=== PATIENT | male | born 1945 | race Caucasian/White ===

== ENCOUNTER 2018-01-09 06:54 | Emergency (ER) | payer BC ==
[~2018-01-09] VITALS: Ht 182.9 cm; Wt 82.0 kg
[2018-01-09 07:05] VITALS: BP 114/55; PULSE 120; RESP 16; TEMP 97.4; O2SAT 94
--- NOTE | 2018-01-09 07:19 | PD ---
HPI Chief Complaint: Flank/Kidney Pain Time Seen by Provider: 07:15 Travel History International Travel<30 days: No Contact w/Intl Traveler<30days: No Traveled to known affect area: No History of Present Illness HPI Patient comes in complaining of flank pain he was diagnosed with a kidney stone over the last 3 weeks. He has been showing up to [facility] times was told they cannot help him. Patient follows up with urologist Dr. Ley, who did a cystoscopy and stent placement on the left side this past Wednesday. However the patient continues to have pain and dark-colored urine, left flank pain radiating towards his left groin area, 10 out of 10 pain Develops a rash with penicillin Past medical history significant for MA status post stent in 1993 in 2002, has left bundle branch block, hypercholesterolemia, hernia repair, appendectomy, diabetes, and kidney stones. PFSH Past Medical History Cardiovascular Problems: Yes (MA, STENTS) Social History Tobacco Use: No Allergies-Medications (Allergen,Severity, Reaction): Coded Allergies: Penicillins (Verified Allergy, Mild, Rash, 01/09/18) acetaminophen (Verified Adverse Reaction, Unknown, Confusion, 01/12/18) lorazepam (Verified Adverse Reaction, Unknown, Confusion, 01/12/18) oxycodone (Verified Adverse Reaction, Unknown, Confusion, 01/12/18) Reported Meds & Prescriptions Reported Meds & Active Scripts Active Prednisone 5 Mg Tab 5 Mg PO DAILY Metoprolol Succinate ER 24 HR (Metoprolol Succinate) 25 Mg Tab 50 Mg PO DAILY Percocet (Oxycodone-Acetaminophen) 10-325 mg Tab 1 Tab PO Q6H PRN Reported Ativan (Lorazepam) 1 Mg Tab 1 Mg PO TID PRN Levofloxacin 500 Mg Tablet 500 Mg PO DAILY Omeprazole 40 Mg Cap 40 Mg DAILY Flexeril (Cyclobenzaprine HCl) 10 Mg Tab 10 Mg PO TID PRN Nitrostat SL (Nitroglycerin) 0.4 Mg Subl 0.4 Mg SL DIRECTED PRN 1 tablet under the tongue as needed for chest pain. Repeat every 5 minutes for a total of 3 DOSES or call 911 if NO relief. Meloxicam 15 Mg Tab 15 Mg PO DAILY Fluticasone Nasal [place] 50 Mcg/Act Naspr 50 Mcg EACH NARE BID 50 mcg/spray Aspirin Low Dose (Aspirin) 81 Mg Chew 81 Mg CHEW DAILY Mupirocin Topical (Mupirocin) 2 % Oint 1 Applic TOPICAL TID Tamsulosin (Tamsulosin HCl) 0.4 Mg Cap 0.4 Mg HS Jardiance (Empagliflozin) 10 Mg Tab 10 Mg PO DAILY Benicar (Olmesartan) 20 Mg Tab 20 Mg PO DAILY Welchol (Colesevelam HCl) 625 Mg Tab 1,875 Mg PO BID Metoprolol Succinate ER 24 HR (Metoprolol Succinate) 25 Mg Tab 25 Mg PO DAILY Rosuvastatin (Rosuvastatin Calcium) 20 Mg Tab 20 Mg PO DAILY Review of Systems General / Constitutional: No: Fever Eyes: No: Visual changes HENT: No: Headaches Cardiovascular: No: Chest Pain or Discomfort Respiratory: No: Shortness of Breath Gastrointestinal: No: Abdominal Pain Genitourinary: Positive: Flank Pain Musculoskeletal: No: Pain Skin: No Rash Neurologic: No: Weakness Psychiatric: No: Depression Endocrine: No: Polydipsia Hematologic/Lymphatic: No: Easy Bruising Physical Exam Narrative GENERAL: SKIN: Warm and dry. HEAD: Atraumatic. Normocephalic. EYES: Pupils equal and round. No scleral icterus. No injection or drainage. ENT: No nasal bleeding or discharge. Mucous membranes pink and moist. NECK: Trachea midline. No JVD. CARDIOVASCULAR: Regular rate and rhythm. RESPIRATORY: No accessory muscle use. Clear to auscultation. Breath sounds equal bilaterally. GASTROINTESTINAL: Abdomen soft, non-tender, nondistended. MUSCULOSKELETAL: Extremities without clubbing, cyanosis, or edema. No obvious deformities. NEUROLOGICAL: Awake and alert. No obvious cranial nerve deficits. Motor grossly within normal limits. Five out of 5 muscle strength in the arms and legs. Normal speech. PSYCHIATRIC: Appropriate mood and affect; insight and judgment normal. Data Data Last Documented VS Orders Orders Complete Blood Count With Diff (01/09/18 07:28) Comprehensive Metabolic Panel (01/09/18 07:28) Urinalysis - C+S If Indicated (01/09/18 07:28) Ct Abd/Pel W/O Iv Contrast (01/09/18 07:28) Ecg Monitoring (01/09/18 07:28) Iv Access Insert/Monitor (01/09/18 07:28) Ketorolac Inj (Toradol Inj) (01/09/18 07:30) Morphine Inj (Morphine Inj) (01/09/18 07:30) Ondansetron Inj (Zofran Inj) (01/09/18 07:30) Sodium Chlor 0.9% 1000 Ml Inj (Ns 1000 M (01/09/18 07:28) Ed Discharge Order (01/09/18 09:13) Labs Laboratory Tests Test 01/09/18 07:30 01/09/18 07:34 Urine Color LIGHT-RED Urine Turbidity HAZY Urine pH 5.5 Urine Specific [place] 1.031 Urine Protein 30 mg/dL Urine Glucose (UA) 1000 mg/dL Urine Ketones 10 mg/dL Urine Occult Blood LARGE Urine Nitrite NEG Urine Bilirubin NEG Urine Urobilinogen LESS THAN 2.0 MG/DL Urine Leukocyte Esterase SMALL Urine RBC /hpf Urine WBC 2 /hpf Urine Squamous Epithelial Cells 1 /hpf Urine Bacteria OCC /hpf Microscopic Urinalysis Comment CULT NOT INDICATED White Blood Count 8.7 TH/MM3 Red Blood Count 3.88 MIL/MM3 Hemoglobin 11.1 GM/DL Hematocrit 33.2 % Mean Corpuscular Volume 85.6 FL Mean Corpuscular Hemoglobin 28.5 PG Mean Corpuscular Hemoglobin Concent 33.3 % Red Cell Distribution Width 14.8 % Platelet Count 225 TH/MM3 Mean Platelet Volume 9.0 FL Neutrophils (%) (Auto) 75.4 % Lymphocytes (%) (Auto) 15.1 % Monocytes (%) (Auto) 9.0 % Eosinophils (%) (Auto) 0.3 % Basophils (%) (Auto) 0.2 % Neutrophils # (Auto) 6.6 TH/MM3 Lymphocytes # (Auto) 1.3 TH/MM3 Monocytes # (Auto) 0.8 TH/MM3 Eosinophils # (Auto) 0.0 TH/MM3 Basophils # (Auto) 0.0 TH/MM3 CBC Comment DIFF FINAL Differential Comment Blood Urea Nitrogen 30 MG/DL Creatinine 0.88 MG/DL Random Glucose 200 MG/DL Total Protein 7.1 GM/DL Albumin 2.2 GM/DL Calcium Level 8.6 MG/DL Alkaline Phosphatase 837 U/L Aspartate Amino Transf (AST/SGOT) 88 U/L Alanine Aminotransferase (ALT/SGPT) 19 U/L Total Bilirubin 0.6 MG/DL Sodium Level 137 MEQ/L Potassium Level 4.5 MEQ/L Chloride Level 103 MEQ/L Carbon Dioxide Level 26.8 MEQ/L Anion Gap 7 MEQ/L Estimat Glomerular Filtration Rate 86 ML/MIN [facility] Medical Decision Making Medical Screen Exam Complete: Yes Emergency Medical Condition: Yes Medical Record Reviewed: Yes Differential Diagnosis Rule out pyelonephritis versus infected kidney stone versus perinephric abscess Narrative Course CBC shows no leukocytosis, no anemia, normal platelet count, no left shift. Patient's CT showed a ureteral stent catheter in place with a small 3 mm calculus along the distal stent catheter at the level of the mid pelvis, moderate diverticulosis, small infrarenal AAA measuring 3.5 x 3.4 cm in diameter with a peripheral thrombus, and also some scattered sclerotic areas throughout all the bony structures of concern for possible metastatic disease. All of these findings were discussed at length with the patient and family, he was advised to follow-up & take the report to his primary care Dr. Tan Diagnosis Primary Impression: Ureterolithiasis Patient Instructions: General Instructions, Kidney Stones (ED) Scripts Oxycodone-Acetaminophen (Percocet) 10-325 mg Tab 1 TAB PO Q6H Y for PAIN, #14 TAB 0 Refills Prov: Diogenes Baxter MD 01/09/18 Disposition: 01 DISCHARGE HOME Condition: Stable Diogenes Baxter MD Jan 09, 2018 07:19
[2018-01-09] MEDS ORDERED: SODIUM CHLOR 0.9% 1000 ML INJ 1,000 ML IV ONE (07:28)
[2018-01-09] MEDS ORDERED: KETOROLAC TROMETHAMINE 30 MG/ML (IVP) VIAL IV PUSH ONE (07:30)
[2018-01-09] MEDS ORDERED: MORPHINE SULFATE 4 MG/ML INJ IV PUSH ONE (07:30)
[2018-01-09] MEDS ORDERED: ONDANSETRON HCL 4 MG/2 ML VIAL IV PUSH ONE (07:30)
[2018-01-09 07:55] VITALS: BP 106/58; PULSE 104; RESP 23; O2SAT 92
--- NOTE | 2018-01-09 08:00 | RADRPT ---
EXAM DATE/TIME: 01/09/2018 07:37 This report includes an Addendum and supersedes previous reports for this exam. [facility] COMPARISON: No previous studies available for comparison. INDICATIONS : Left flank pain, history of left renal calculi status post stent placement. ORAL CONTRAST: No oral contrast ingested. RADIATION DOSE: 6.88 CTDIvol (mGy) MEDICAL HISTORY : Cardiovascular disease. Renal calculi. Chronic obstructive pulmonary disease., CAD, Diabetes SURGICAL HISTORY : Hernia, recent bypass/stent to remove stone ENCOUNTER: Initial ACUITY: 3 weeks PAIN SCALE: 5/10 LOCATION: Left flank TECHNIQUE: Volumetric scanning of the abdomen and pelvis was performed. Using automated exposure control and ad justment of the mA and/or kV according to patient size, radiation dose was kept as low as reasonably achievable to obtain optimal diagnostic quality images. DICOM format image data is available electro nically for review and comparison. FINDINGS: LOWER LUNGS: The visualized lower lungs are clear. LIVER: Homogeneous density without lesion. There is no dilation of the biliary tree. No calcified gallston es. SPLEEN: Normal size without lesion. PANCREAS: Within normal limits. KIDNEYS: Normal in size and shape. There is no solid mass or renal calculi. There is a simple cyst extending off the upper pole left kidney. There is a left double pigtail ureteral stent catheter in place with a small 3 mm calculus along the distal stent at the level of the mid pelvis. This is best seen on axi al image #103. ADRENAL GLANDS: Within normal limits. VASCULAR: Diffuse atherosclerotic changes are noted with calcification. There is an infrarenal abdominal aortic aneurysm present measuring up to 3.5 x 3.4 cm in greatest AP and transverse diameter. There is appar ent peripheral thrombus. BOWEL/MESENTERY: The stomach, small bowel, and colon demonstrate no acute abnormality. There are multiple diverticuli greatest in the sigmoid colon. There is no free intraperitoneal air or fluid. ABDOMINAL WALL: Within normal limits. RETROPERITONEUM: There is no lymphadenopathy. BLADDER: No wall thickening or mass. REPRODUCTIVE: Within normal limits. INGUINAL: There is no lymphadenopathy or hernia. MUSCULOSKELETAL: There is diffuse osteopenia. There are multiple ill-defined sclerotic densities throughout the visual ized portion of the vertebral column. End pelvis CONCLUSION: 1. Left double pigtail ureteral stent catheter in place with small 3 mm calculus along the distal graciela nt catheter at the level of the mid pelvis. 2. No renal calculi or obstruction. 3. Small simple cyst extending off the upper pole of the left kidney. 4. Scattered numerous sclerotic areas throughout all the bony structures of concern for possible meta static disease. 5. Moderate diverticulosis. 6. Small infrarenal abdominal aortic aneurysm measuring up to 3.5 x 3.4 cm in diameter with apparent peripheral thrombus. Rogerio Junior MD on January 09, 2018 at 7:47 Board Certified Radiologist. This report was verified electronically. ADDENDUM: The there is a mildly prominent right retroperitoneal lymph node on axial image #38 measuring 1.7 x 1 .4 cm. This is a nonspecific finding. Rogerio Junior MD on January 09, 2018 at 8:06 Board Certified Radiologist. This report was verified electronically.
[2018-01-09 08:09] LABS: AUTOMATED NEUTROPHIL # 6.6 TH/MM3 (1.8-7.7); BASOPHIL % 0.2 % (0.0-2.0); EOSINOPHIL % 0.3 % (0.0-4.0); HEMATOCRIT 33.2 % (39.0-51.0); HEMOGLOBIN 11.1 GM/DL (13.0-17.0); LYMPH % 15.1 % (9.0-44.0); LYMPHOCYTE # 1.3 TH/MM3 (1.0-4.8); MEAN CELL VOLUME 85.6 FL (80.0-100.0); MEAN CORPUSCULAR HEMOGLOBIN 28.5 PG (27.0-34.0); MEAN CORPUSCULAR HGB CONC 33.3 % (32.0-36.0); MONOCYTE # 0.8 TH/MM3 (0-0.9); NEUT % 75.4 % (16.0-70.0); PLATELET COUNT 225 TH/MM3 (150-450); RED BLOOD COUNT 3.88 MIL/MM3 (4.50-5.90); RED CELL DISTRIBUTION WIDTH 14.8 % (11.6-17.2); WHITE BLOOD COUNT 8.7 TH/MM3 (4.0-11.0)
[2018-01-09 08:21] LABS: BACTERIA, URINE OCC /hpf; BILIRUBIN, URINE NEG (NEG); BLOOD, URINE LARGE (NEG); GLUCOSE,URINE 1000 mg/dL (NEG); KETONE, URINE 10 mg/dL (NEG); NITRITE,URINE NEG (NEG); PH, URINE 5.5 (5.0-8.5); SQUAMOUS EPITHELIAL CELL URINE 1 /hpf (0-5); URINE COLOR LIGHT-RED (YELLW/STRAW); URINE LEUKOCYTE ESTERASE SMALL (NEG)
[2018-01-09 08:34] LABS: ALBUMIN 2.2 GM/DL (3.4-5.0); ALT (GPT) 19 U/L (12-78); AST (GOT) 88 U/L (15-37); BICARBONATE 26.8 MEQ/L (21.0-32.0); BLOOD UREA NITROGEN 30 MG/DL (7-18); CALCIUM 8.6 MG/DL (8.5-10.1); CHLORIDE 103 MEQ/L (98-107); CREATININE 0.88 MG/DL (0.60-1.30); GLOMERULAR FILTRATION RATE 86 ML/MIN (>89); GLUCOSE,RANDOM 200 MG/DL (74-106); SODIUM (NA) 137 MEQ/L (136-145)
[2018-01-09 08:36] LABS: ALKALINE PHOSPHATASE 837 U/L (45-117); TOTAL BILIRUBIN ADULT 0.6 MG/DL (0.2-1.0); TOTAL PROTEIN 7.1 GM/DL (6.4-8.2)
[2018-01-09] MEDS ORDERED: PERC10TA27 PO (09:15)
[2018-01-09] MEDS ORDERED: NITR0.4S SL ×2 (09:31)
[2018-01-09] MEDS ORDERED: MUPI2OIN TOPICAL ×2 (09:31)
[2018-01-09] MEDS ORDERED: OMEP40CA2 ×2 (09:31)
[2018-01-09] MEDS ORDERED: METO1TAB42 PO (09:31)
[2018-01-09] MEDS ORDERED: TAMS0.4C4 ×2 (09:31)
[2018-01-09] MEDS ORDERED: MELO15TA20 PO ×2 (09:31)
[2018-01-09] MEDS ORDERED: COLE625 PO ×2 (09:31)
[2018-01-09] MEDS ORDERED: CYCL10TA PO (09:31)
[2018-01-09] MEDS ORDERED: OLME1TAB PO ×2 (09:31)
[2018-01-09] MEDS ORDERED: EMPA1TAB PO ×2 (09:31)
[2018-01-09] MEDS ORDERED: FLUT50SP EACH NARE ×2 (09:31)
[2018-01-09] MEDS ORDERED: ASPI81CH6 CHEW ×2 (09:31)
[2018-01-09] MEDS ORDERED: ROSU1TAB8 PO ×2 (09:31)
[2018-01-09] MEDS ORDERED: LEVO500T8 PO (09:31)
[2018-01-09] MEDS ORDERED: PRED10 PO ×2 (09:31)
== END 2018-01-09 09:38 | disposition home or self-care (01) ==
LOC: NEPC 06:54
DX: N20.1 Calculus of ureter (principal); I71.4 Abdominal aortic aneurysm, without rupture; I25.10 Atherosclerotic heart disease of native coronary artery without angina pectoris; I25.2 Old myocardial infarction; J44.9 Chronic obstructive pulmonary disease, unspecified; E78.00 Pure hypercholesterolemia, unspecified; E11.9 Type 2 diabetes mellitus without complications; Z87.442 Personal history of urinary calculi; Z88.0 Allergy status to penicillin; Z88.5 Allergy status to narcotic agent; Z79.899 Other long term (current) drug therapy
CPT/HCPCS: 74176; 80053; 81001; 85025; 96361; 96374; 96375; 99284; J1885; J2270; J2405; J7030

== ENCOUNTER 2018-01-11 16:12 | Inpatient (IN) | payer BC, MEDICARE ==
[~2018-01-11] VITALS: Ht 182.9 cm; Wt 85.2 kg
[~2018-01-11 16:12] MED LIST: ASPI81CH6 CHEW; COLE625 PO; CYCL10TA PO; EMPA1TAB PO; FLUT50SP EACH NARE; LEVO500T8 PO; MELO15TA20 PO; METO1TAB42 PO; MUPI2OIN TOPICAL; NITR0.4S SL; OLME1TAB PO; OMEP40CA2; PERC10TA27 PO; PRED10 PO; ROSU1TAB8 PO; TAMS0.4C4
[2018-01-11 16:43] VITALS: BP 120/61; PULSE 126; RESP 20; TEMP 97.9; O2SAT 95
[2018-01-11 18:10] LABS: AUTOMATED NEUTROPHIL # 6.1 TH/MM3 (1.8-7.7); BASOPHIL % 0.2 % (0.0-2.0); EOSINOPHIL % 0.2 % (0.0-4.0); HEMATOCRIT 33.6 % (39.0-51.0); HEMOGLOBIN 10.9 GM/DL (13.0-17.0); LYMPH % 14.5 % (9.0-44.0); LYMPHOCYTE # 1.2 TH/MM3 (1.0-4.8); MEAN CELL VOLUME 87.1 FL (80.0-100.0); MEAN CORPUSCULAR HEMOGLOBIN 28.4 PG (27.0-34.0); MEAN CORPUSCULAR HGB CONC 32.6 % (32.0-36.0); MONO % 9.8 % (0.0-8.0); MONOCYTE # 0.8 TH/MM3 (0-0.9); NEUT % 75.3 % (16.0-70.0); PLATELET COUNT 269 TH/MM3 (150-450); RED BLOOD COUNT 3.86 MIL/MM3 (4.50-5.90); RED CELL DISTRIBUTION WIDTH 15.2 % (11.6-17.2); WHITE BLOOD COUNT 8.1 TH/MM3 (4.0-11.0)
[2018-01-11 18:23] LABS: BACTERIA, URINE FEW /hpf; BILIRUBIN, URINE NEG (NEG); BLOOD, URINE MOD (NEG); GLUCOSE,URINE 1000 mg/dL (NEG); KETONE, URINE 10 mg/dL (NEG); NITRITE,URINE NEG (NEG); PH, URINE 5.5 (5.0-8.5); URINE COLOR YELLOW (YELLW/STRAW); URINE LEUKOCYTE ESTERASE MOD (NEG)
[2018-01-11 18:25] LABS: ALBUMIN 2.1 GM/DL (3.4-5.0); ALT (GPT) 25 U/L (12-78); AST (GOT) 108 U/L (15-37); BICARBONATE 28.1 MEQ/L (21.0-32.0); BLOOD UREA NITROGEN 31 MG/DL (7-18); CALCIUM 8.3 MG/DL (8.5-10.1); CHLORIDE 99 MEQ/L (98-107); CREATININE 1.12 MG/DL (0.60-1.30); GLOMERULAR FILTRATION RATE 65 ML/MIN (>89); GLUCOSE,RANDOM 353 MG/DL (74-106); SODIUM (NA) 136 MEQ/L (136-145)
[2018-01-11 18:35] LABS: ALKALINE PHOSPHATASE 914 U/L (45-117); TOTAL BILIRUBIN ADULT 0.6 MG/DL (0.2-1.0); TOTAL PROTEIN 7.5 GM/DL (6.4-8.2)
[2018-01-11] MEDS ORDERED: SODIUM CHLOR 0.9% 1000 ML INJ 1,000 ML IV ONE (19:45)
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
[2018-01-11] MEDS ORDERED: cefTRIAXone INJ 2,000 MG in SODIUM CHLORIDE 0.9% INJ 100 ML IV ONE (20:00)
[2018-01-11 20:02] VITALS: BP 100/60; PULSE 112; RESP 20; O2SAT 96
[2018-01-11 20:16] LABS: INTERNATIONAL NORMALIZED RATIO 1.2 RATIO; MAGNESIUM 3.1 MG/DL (1.5-2.5); PROTHROMBIN TIME - PATIENT 11.7 SEC (9.8-11.6)
[2018-01-11 20:20] LABS: TROPONIN I 0.26 NG/ML (0.02-0.05)
[2018-01-11] MEDS ORDERED: ASPIRIN 81 MG CHEW TAB CHEW ONE (20:30)
--- NOTE | 2018-01-11 20:30 | RADRPT ---
EXAM DATE/TIME: 01/11/2018 19:41 [facility] COMPARISON: No previous studies available for comparison. INDICATIONS : Chest pain. MEDICAL HISTORY : Cardiovascular disease. Renal calculi. Chronic obstructive pulmonary disease., CAD, Diabetes SURGICAL HISTORY : Hernia, recent bypass/stent to remove stone ENCOUNTER: Initial ACUITY: 1 day PAIN SCORE: 6/10 LOCATION: Bilateral chest FINDINGS: A single view of the chest demonstrates the lungs to be symmetrically aerated without evidence of mas s, infiltrate or effusion. The cardiomediastinal contours are unremarkable. Osseous structures are intact. CONCLUSION: No acute disease. Kvng Ortiz MD on January 11, 2018 at 20:27 Board Certified Radiologist. This report was verified electronically.
--- NOTE | 2018-01-11 20:59 | RADRPT ---
EXAM DATE/TIME: 01/11/2018 20:32 [facility] COMPARISON: No previous studies available for comparison. INDICATIONS : Hallucinations, altered mental status RADIATION DOSE: 38.53 CTDIvol (mGy) MEDICAL HISTORY : Cardiovascular disease. Chronic obstructive pulmonary disease. SURGICAL HISTORY : None. ENCOUNTER: Initial ACUITY: 1 day PAIN SCALE: 0/10 LOCATION: cranial TECHNIQUE: Multiple contiguous axial images were obtained of the head. Using automated exposure control and adj ustment of the mA and/or kV according to patient size, radiation dose was kept as low as reasonably a chievable to obtain optimal diagnostic quality images. DICOM format image data is available electro nically for review and comparison. FINDINGS: CEREBRUM: The ventricles are normal for age. No evidence of midline shift, mass lesion, hemorrhage or acute in farction. No extra-axial fluid collections are seen. POSTERIOR FOSSA: The cerebellum and brainstem are intact. The 4th ventricle is midline. The cerebellopontine angle i s unremarkable. EXTRACRANIAL: The visualized portion of the orbits is intact. SKULL: The calvaria is intact. No evidence of skull fracture. CONCLUSION: Normal examination. Kvng Ortiz MD on January 11, 2018 at 20:55 Board Certified Radiologist. This report was verified electronically.
[2018-01-11 21:01] VITALS: BP 132/61; PULSE 108; RESP 18; O2SAT 96
[2018-01-11] MEDS ORDERED: HEPARIN-D5W 25,000 U/250 ML 250 ML IV PRN (21:15)
[2018-01-11] MEDS ORDERED: HEPARIN SODIUM - IV 10,000 UNITS/10 ML VIAL IV ONE (21:15)
[2018-01-11 22:24] VITALS: BP 110/60; PULSE 98; RESP 18; O2SAT 99
[2018-01-11 23:19] VITALS: BP 107/65; PULSE 102; RESP 18; O2SAT 97
[2018-01-11] MEDS ORDERED: MORPHINE SULFATE 4 MG/ML INJ IV PUSH PRN (23:30)
[2018-01-11] MEDS ORDERED: SODIUM CHLORIDE 0.9% FLUSH 10 ML FLUSH IV FLUSH PRN (23:30)
[2018-01-11] MEDS: SODIUM CHLOR 0.9% 1000 ML INJ 1,000 ML IV SCH (23:33)
[2018-01-11] MEDS ORDERED: LORA-474 PO (23:42)
[2018-01-12] VITALS (9 sets, daily range): BP systolic 102–142; BP diastolic 55–83; PULSE 99–120; RESP 16–20; TEMP 97.6–97.7; O2SAT 93–98
[2018-01-12] MEDS ORDERED: HEPARIN SODIUM - IV 10,000 UNITS/10 ML VIAL IV PRN ×2 (03:15)
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
[2018-01-12] MEDS ORDERED: GLUCAGON 1 MG/ML VIAL OTHER PRN (03:30)
[2018-01-12] MEDS ORDERED: DEXTROSE 50% IN WATER 50 ML VIAL(D50) IV PUSH PRN (03:30)
[2018-01-12 03:53] LABS: AUTOMATED NEUTROPHIL # 4.8 TH/MM3 (1.8-7.7); BASOPHIL % 0.2 % (0.0-2.0); EOSINOPHIL % 0.3 % (0.0-4.0); HEMATOCRIT 30.2 % (39.0-51.0); LYMPH % 18.4 % (9.0-44.0); LYMPHOCYTE # 1.2 TH/MM3 (1.0-4.8); MEAN CELL VOLUME 85.7 FL (80.0-100.0); MEAN CORPUSCULAR HEMOGLOBIN 28.3 PG (27.0-34.0); MEAN PLATELET VOLUME 8.6 FL (7.0-11.0); MONOCYTE # 0.7 TH/MM3 (0-0.9); NEUT % 71.1 % (16.0-70.0); PLATELET COUNT 227 TH/MM3 (150-450); RED BLOOD COUNT 3.53 MIL/MM3 (4.50-5.90); RED CELL DISTRIBUTION WIDTH 14.9 % (11.6-17.2); WHITE BLOOD COUNT 6.8 TH/MM3 (4.0-11.0)
[2018-01-12 04:20] LABS: ALBUMIN 1.8 GM/DL (3.4-5.0); ALT (GPT) 22 U/L (12-78); AST (GOT) 84 U/L (15-37); BLOOD UREA NITROGEN 29 MG/DL (7-18); CALCIUM 8.2 MG/DL (8.5-10.1); CHLORIDE 104 MEQ/L (98-107); CREATININE 0.75 MG/DL (0.60-1.30); GLOMERULAR FILTRATION RATE 103 ML/MIN (>89); GLUCOSE,RANDOM 263 MG/DL (74-106); SODIUM (NA) 141 MEQ/L (136-145)
[2018-01-12 04:22] LABS: ALKALINE PHOSPHATASE 773 U/L (45-117); TOTAL BILIRUBIN ADULT 0.5 MG/DL (0.2-1.0); TOTAL PROTEIN 6.6 GM/DL (6.4-8.2)
[2018-01-12 07:02] LABS: BANDS 2 % (0-6); BASOPHILS 1 % (0-2); LYMPHOCYTES 22 % (9-44); METAMYELOCYTES 2 % (0-1); MONOCYTES 6 % (0-8); NEUTROPHIL # MANUAL DIFF 4.8 TH/MM3 (1.8-7.7); POLYS (SEG NEUTROPHILS) 67 % (16-70)
--- NOTE | 2018-01-12 07:34 | EKG ---
Date Performed: 01/12/2018 Time Performed: 06:00:04 PTAGE: 72 years EKG: SINUS TACHYCARDIA LEFT BUNDLE BRANCH BLOCK ABNORMAL ECG PREVIOUS TRACING : 01/11/2018 19.37 DOCTOR: William Pulido Interpretating Date/Time 01/12/2018 07:32:35
[2018-01-12] MEDS: INSULIN ASPART SUPPLEMENTAL SCALE SQ SCH ×4 (08:00→20:27)
--- NOTE | 2018-01-12 08:02 | EKG ---
Date Performed: 01/11/2018 Time Performed: 19:37:14 PTAGE: 72 years EKG: SINUS TACHYCARDIA LEFT BUNDLE BRANCH BLOCK ABNORMAL ECG NO PREVIOUS TRACING DOCTOR: William Pulido Interpretating Date/Time 01/12/2018 08:01:35
[2018-01-12 09:18] LABS: TROPONIN I 0.15 NG/ML (0.02-0.05)
[2018-01-12] MEDS ORDERED: NITROGLYCERIN 0.4 MG SL 25 TABS/BTL SL PRN (09:45)
[2018-01-12] MEDS: ATORVASTATIN 40 MG TAB PO SCH (10:35)
[2018-01-12] MEDS: PANTOPRAZOLE SOD 40 MG DELAYED RELEASE TAB PO SCH (10:35)
[2018-01-12] MEDS: METOPROLOL SUCCINATE 25 MG EXTENDED RELEASE TAB PO SCH (10:35)
[2018-01-12] MEDS: SODIUM CHLORIDE 0.9% FLUSH 10 ML FLUSH IV FLUSH SCH ×2 (10:36→20:11)
[2018-01-12] MEDS: LOSARTAN 50 MG TAB PO SCH (10:36)
[2018-01-12] MEDS: ASPIRIN EC 325 MG TABEC PO SCH (10:37)
[2018-01-12] MEDS: SODIUM CHLOR 0.9% 1000 ML INJ 1,000 ML IV SCH ×2 (10:37→19:30)
[2018-01-12 11:27] LABS: BICARBONATE 26.7 MEQ/L (21.0-32.0); CALCIUM 8.5 MG/DL (8.5-10.1); CREATININE 0.7 MG/DL (0.60-1.30)
[2018-01-12] MEDS ORDERED: SODIUM POLYSTYRENE SULFONATE SUSP 15 GM/60 ML CUP PO ONE (13:00)
[2018-01-12] MEDS: MUPIROCIN 2% OINT 22 GM TUBE TOPICAL SCH ×2 (13:59→17:57)
[2018-01-12] MEDS: COLESEVELAM HCL 625 MG TAB PO SCH (14:02)
--- NOTE | 2018-01-12 15:11 | MB ---
cc: Eric Bundy MD DATE: 01/12/2018 REASON FOR CONSULTATION: Evaluation of elevated troponin. HISTORY OF PRESENT ILLNESS: Bharat Cason is a 72-year-old man well known to me. He has known coronary artery disease. Recently was admitted with altered mental status. Yesterday, he was psychotic, he is better today. He has had a lot of weight loss and getting a malignancy workup. Specifically though related to his heart, he has not had any chest pain, chest tightness, chest squeezing or anything that could construe his angina. He has had significant weight loss. He has had no other cardiovascular symptoms. He has known coronary artery disease. He had a previous myocardial infarction in 2002 with stenting of the right coronary artery with a 4.0 x 33 mm long Cypher stent. At that time, he had a bifurcated mid LAD lesion that was not critical. It was treated medically. He has not had any problems with ischemia since that procedure. He has a chronic left bundle branch block. PAST MEDICAL HISTORY: Includes coronary disease, kidney stones, mild carotid plaquing, type 2 diabetes, hypertension, hyperlipidemia, left bundle branch block, obesity, previous polymyalgia rheumatica. PAST SURGICAL HISTORY: Appendectomy, back surgery, catheterization procedure, hernia repair, and right coronary artery stent. MEDICATIONS: As charted. He is on a low-dose beta elida as well as angiotensin receptor elida and a statin. ALLERGIES: ALVIN INHIBITORS, PENICILLIN AND ZETIA. FAMILY HISTORY: Positive for colon cancer in the mother and coronary artery disease in the father, stroke in the father. SOCIAL HISTORY: He used to smoke, but quit, smoked from age 13 to age 64, however. REVIEW OF SYSTEMS: Notable for weight loss. PHYSICAL EXAMINATION: GENERAL: Shows an alert, well-developed, well-nourished white male. At the present time, he is not hallucinating. VITAL SIGNS: Charted. HEENT: Unremarkable. NECK: Shows no JVD, no bruits. CHEST: Clear to auscultation. CARDIOVASCULAR: Shows normal first and second heart sounds, regular rate and rhythm. No murmurs or gallops. ABDOMEN: Soft, nontender. EXTREMITIES: No clubbing, cyanosis. Pulses are intact. EKG: Shows regular rhythm with left bundle branch block. We did carotid massage at the bedside. It is clearly sinus rhythm, not any type of SVT that I can see. IMAGING STUDIES: His chest x-ray showing no acute disease. LABORATORY DATA: Showing a troponin of 0.20, 0.15 on recheck. Albumin is only 1.8. Creatinine is 0.7. IMPRESSION: Mildly elevated troponin in this patient with known coronary artery disease. I cannot elicit any history though that sounds like angina. I think the troponin elevation is minimal and probably spurious. I am going to order a Lexiscan nuclear stress test just to assess him further. Heparin has been turned off. Eric Bundy MD VEW/TL , 02:48 PM , 03:11 PM
--- NOTE | 2018-01-12 17:12 | HHI.PR ---
Addendum To [facility] Progress Not Reason for addendum: Additonal documentation (Please refer to H&P today. States he developed confusion after receiving medications during PETSCAN. Thinks he was given lorazepam and Percocet but wants his to confirm. He is currently oriented 4. Patient's encephalopathy could also be related to infection, UTI. He also has elevated troponin but denies chest pain with history of coronary artery disease pending cardiology evaluation. Continue heparin for now. Patient is on chronic prednisone for back pain which is being tapered by his PCP Dr. Tan) Gustavo Betancourt MD Jan 12, 2018 17:12
[2018-01-12] MEDS: cefTRIAXone INJ 1,000 MG in SODIUM CHLORIDE 0.9% INJ 100 ML IV SCH (20:11)
[2018-01-12] MEDS: TAMSULOSIN HCL 0.4 MG CAP PO SCH (20:12)
[2018-01-12] MEDS: FLUTICASONE PROPIONATE 50 MCG/ACT 16 GM NASAL SPRAY EACH NARE SCH (20:12)
[2018-01-13] VITALS (8 sets, daily range): BP systolic 92–146; BP diastolic 55–72; PULSE 88–103; RESP 16–21; TEMP 97.2–99; O2SAT 93–100
[2018-01-13] MEDS: COLESEVELAM HCL 625 MG TAB PO SCH ×3 (00:45→23:29)
[2018-01-13] MEDS: SODIUM CHLOR 0.9% 1000 ML INJ 1,000 ML IV SCH ×2 (03:48→16:00)
[2018-01-13 08:18] LABS: AUTOMATED NEUTROPHIL # 4.5 TH/MM3 (1.8-7.7); BASOPHIL % 0.4 % (0.0-2.0); EOSINOPHIL % 0.4 % (0.0-4.0); HEMATOCRIT 28.9 % (39.0-51.0); HEMOGLOBIN 9.8 GM/DL (13.0-17.0); LYMPH % 20.5 % (9.0-44.0); LYMPHOCYTE # 1.3 TH/MM3 (1.0-4.8); MEAN CELL VOLUME 85.4 FL (80.0-100.0); MEAN PLATELET VOLUME 8.6 FL (7.0-11.0); MONO % 9.5 % (0.0-8.0); MONOCYTE # 0.6 TH/MM3 (0-0.9); NEUT % 69.2 % (16.0-70.0); PLATELET COUNT 234 TH/MM3 (150-450); RED BLOOD COUNT 3.38 MIL/MM3 (4.50-5.90); RED CELL DISTRIBUTION WIDTH 14.7 % (11.6-17.2); WHITE BLOOD COUNT 6.6 TH/MM3 (4.0-11.0)
[2018-01-13 08:44] LABS: BICARBONATE 27.9 MEQ/L (21.0-32.0); CALCIUM 8.4 MG/DL (8.5-10.1); CREATININE 0.61 MG/DL (0.60-1.30); MAGNESIUM 2.3 MG/DL (1.5-2.5)
[2018-01-13] MEDS: ASPIRIN EC 325 MG TABEC PO SCH (08:59)
[2018-01-13] MEDS: predniSONE 5 MG TAB PO SCH (08:59)
[2018-01-13] MEDS: PANTOPRAZOLE SOD 40 MG DELAYED RELEASE TAB PO SCH (08:59)
[2018-01-13] MEDS: LOSARTAN 50 MG TAB PO SCH (08:59)
[2018-01-13] MEDS: ATORVASTATIN 40 MG TAB PO SCH (09:00)
[2018-01-13] MEDS: MUPIROCIN 2% OINT 22 GM TUBE TOPICAL SCH ×3 (09:00→17:52)
[2018-01-13] MEDS: METOPROLOL SUCCINATE 25 MG EXTENDED RELEASE TAB PO SCH (09:00)
[2018-01-13] MEDS: SODIUM CHLORIDE 0.9% FLUSH 10 ML FLUSH IV FLUSH SCH ×2 (09:00→20:45)
[2018-01-13] MEDS: FLUTICASONE PROPIONATE 50 MCG/ACT 16 GM NASAL SPRAY EACH NARE SCH ×2 (09:00→20:45)
[2018-01-13] MEDS: INSULIN ASPART SUPPLEMENTAL SCALE SQ SCH ×4 (09:02→20:44)
[2018-01-13 09:31] LABS: BANDS 9 % (0-6); LYMPHOCYTES 14 % (9-44); METAMYELOCYTES 1 % (0-1); MONOCYTES 12 % (0-8); NEUTROPHIL # MANUAL DIFF 4.8 TH/MM3 (1.8-7.7); POLYS (SEG NEUTROPHILS) 63 % (16-70)
--- NOTE | 2018-01-13 09:33 | PD.CARD.PN ---
Subjective Subjective Remarks no angina. no complaints Objective Medications Current Medications Medications (Trade) Dose Ordered Sig/Stacey Route Start Time Stop Time Status Last Admin (NS Flush) 2 ml BID IV FLUSH 01/12/18 09:00 01/12/18 20:11 (NS Flush) 2 ml UNSCH PRN IV FLUSH 01/11/18 23:30 (Ecotrin Ec) 325 mg DAILY PO 01/12/18 09:00 01/13/18 08:59 Ceftriaxone Sodium 1000 mg/ Sodium Chloride 100 ml @ 200 mls/hr Q24H IV 01/12/18 20:00 01/12/18 20:11 Sodium Chloride 1,000 ml @ 100 mls/hr Q10H IV 01/11/18 23:30 01/13/18 03:48 (Morphine Inj) 4 mg Q3H PRN IV PUSH 01/11/18 23:30 (Welchol) 1,875 mg Q12H PO 01/12/18 11:00 01/13/18 00:45 (Toprol Xl) 25 mg DAILY PO 01/12/18 09:00 01/13/18 09:00 (Flomax) 0.4 mg HS PO 01/12/18 21:00 01/12/18 20:12 (Cozaar) 50 mg DAILY PO 01/12/18 09:00 01/13/18 08:59 (Protonix) 40 mg DAILY PO 01/12/18 09:00 01/13/18 08:59 (Lipitor) 40 mg DAILY PO 01/12/18 09:00 01/13/18 09:00 (D50w (Vial) Inj) 50 ml UNSCH PRN IV PUSH 01/12/18 03:30 (Glucagon Inj) 1 mg UNSCH PRN OTHER 01/12/18 03:30 (NovoLOG SUPPLEMENTAL SCALE) 1 ACHS SLIDING SCALE SQ 01/12/18 08:00 01/13/18 09:02 (Flonase Gavino Spr) 1 spray BID EACH NARE 01/12/18 21:00 (Bactroban 2% Oint) 1 applic TID TOPICAL 01/12/18 13:00 01/12/18 17:57 (Nitrostat Sl) 0.4 mg Q5M PRN SL 01/12/18 09:45 (Deltasone) 5 mg DAILY PO 01/13/18 09:00 01/13/18 08:59 Vital Signs / I&O Vital Signs Date Time Temp Pulse Resp B/P (MAP) Pulse Ox O2 Delivery O2 Flow Rate FiO2 01/13/18 04:00 99 01/13/18 04:00 97.5 101 19 146/69 (94) 95 01/13/18 00:17 103 01/13/18 00:00 97.8 102 21 133/70 (91) 93 01/12/18 20:31 97.7 120 20 142/73 (96) 94 01/12/18 19:55 108 01/12/18 16:00 97.6 105 16 102/55 (71) 93 01/12/18 15:00 108 01/12/18 15:00 108 01/12/18 12:46 109 16 96 01/12/18 10:00 110 16 132/64 (86) 96 Room Air I/O 01/12/18 01/12/18 01/12/18 01/13/18 01/13/18 01/13/18 07:00 15:00 23:00 07:00 15:00 23:00 Intake Total 1300 ml 100 ml Output Total 650 ml 100 ml 500 ml Balance 650 ml 0 ml -500 ml Intake Oral 200 ml 100 ml IV Total 1100 ml Output Urine Total 650 ml 100 ml 500 ml # Voids 3 2 # Bowel Movements 3 Physical Exam GENERAL: Well developed, well nourished. No acute distress. HEENT: Jugular venous pressure is normal. CHEST: Lungs clear to auscultation bilaterally. Unlabored respiratory effort. CARDIAC: Regular rate and rhythm ABDOMEN: Soft, nontender, no hepatosplenomegaly. Bowel sounds present. EXTREMITIES: No clubbing, cyanosis, or edema. Laboratory Laboratory Tests Test 01/12/18 10:30 01/13/18 07:06 Blood Urea Nitrogen 22 MG/DL 19 MG/DL Creatinine 0.70 MG/DL 0.61 MG/DL Random Glucose 231 MG/DL 199 MG/DL Calcium Level 8.5 MG/DL 8.4 MG/DL Sodium Level 137 MEQ/L 144 MEQ/L Potassium Level 5.6 MEQ/L 4.3 MEQ/L Chloride Level 104 MEQ/L 108 MEQ/L Carbon Dioxide Level 26.7 MEQ/L 27.9 MEQ/L Anion Gap 6 MEQ/L 8 MEQ/L Estimat Glomerular Filtration Rate 111 ML/MIN 131 ML/MIN Ammonia 23 MCMOL/L White Blood Count 6.6 TH/MM3 Red Blood Count 3.38 MIL/MM3 Hemoglobin 9.8 GM/DL Hematocrit 28.9 % Mean Corpuscular Volume 85.4 FL Mean Corpuscular Hemoglobin 29.0 PG Mean Corpuscular Hemoglobin Concent 34.0 % Red Cell Distribution Width 14.7 % Platelet Count 234 TH/MM3 Mean Platelet Volume 8.6 FL Neutrophils (%) (Auto) 69.2 % Lymphocytes (%) (Auto) 20.5 % Monocytes (%) (Auto) 9.5 % Eosinophils (%) (Auto) 0.4 % Basophils (%) (Auto) 0.4 % Neutrophils # (Auto) 4.5 TH/MM3 Lymphocytes # (Auto) 1.3 TH/MM3 Monocytes # (Auto) 0.6 TH/MM3 Eosinophils # (Auto) 0.0 TH/MM3 Basophils # (Auto) 0.0 TH/MM3 CBC Comment AUTO DIFF Magnesium Level 2.3 MG/DL Assessment and Plan Problem List: (1) Coronary artery disease ICD Codes: I25.10 - Atherosclerotic heart disease of [place] coronary artery without angina pectoris (2) Elevated troponin level ICD Codes: R74.8 - Abnormal levels of other serum enzymes (3) Altered mental status ICD Codes: R41.82 - Altered mental status, unspecified Status: Acute Assessment and Plan await rainer SPECT Problem Qualifiers (1) Altered mental status: Qualified Codes: R41.82 - Altered mental status, unspecified Eric Bundy MD Jan 13, 2018 09:32
[2018-01-13 10:11] LABS: FREE T3 1.83 PG/ML (2.18-3.98); FREE T4 1.26 NG/DL (0.76-1.46)
[2018-01-13] MEDS ORDERED: REGADENOSON INJ 0.4 MG/5 ML SYR ONE (11:27)
--- NOTE | 2018-01-13 13:57 | EKG ---
Date Performed: 01/12/2018 Time Performed: 14:33:22 PTAGE: 72 years EKG: Sinus tachycardia. Left bundle branch block Abnormal ECG Since the PREVIOUS TRACING , no significant change noted PREVIOUS TRACIN01/12/2018 06.00 DOCTOR: Vicki Mahmood Interpretating Date/Time 01/13/2018 13:55:42
--- NOTE | 2018-01-13 14:02 | RADRPT ---
EXAM DATE/TIME: 01/13/2018 11:19 [facility] COMPARISON: No previous studies available for comparison. INDICATIONS : Chest pain. Coronary artery disease. Myocardial infarction. DOSE: 26.2 mCi Tc99m Myoview at stress. 8.1 mCi Tc99m Myoview at rest. 0.4 mg Lexiscan STRESS SYMPTOMS: Shortness of breath and flush. EJECTION FRACTION: 40% MEDICAL HISTORY : Aneurysm, abdominal. Myocardial infarction. Chronic obstructive pulmonary disease. SURGICAL HISTORY : Coronary artery stent. Appendectomy. ENCOUNTER: Initial ACUITY: 1 day PAIN SCALE: 4/10 LOCATION: chest TECHNIQUE: The patient underwent pharmacologic stress with infusion of prescribed dose. Continuous ECG tracing was monitored during stress. Gated SPECT imaging was performed after stress and conventional SPECT i maging was performed at rest. The examination was performed on a SPECT/CT scanner, both attenuation and non-corrected datasets were reviewed. FINDINGS: DISTRIBUTION: The maximum perfused segment at stress is in the basal anterior wall. PERFUSION STUDY: There is moderate size moderate severity decreased perfusion to the apex and the apical segments of t he septum and inferior wall. Decrease in perfusion is approximately 50% less than best perfused wall . There is no evidence of redistribution suggesting that these defects are fixed. No other perfusio n defects seen. The summed stress score is 6. GATED STUDY: Abnormal wall motion in the apex and apical septal region either with akinesia or hypokinesia. No wa ll thickening seen. The calculated ejection fraction is depressed at 40%. CONCLUSION: 1. Fixed perfusion defect involving the apex and apical segments of the septum and inferior wall emilia acteristic of old infarction. Wall motion abnormalities in the same segments as the fixed perfusion defect. The global ejection fr action is also depressed at 40%. RISK CATEGORY: Intermediate (1-3% Annual Mortality Rate) Mynor Langston MD on January 13, 2018 at 13:56 Board Certified Radiologist. This report was verified electronically.
--- NOTE | 2018-01-13 16:56 | HHI.PR ---
Subjective Remarks Patient seen earlier resting in bed no chest pain Going for stress test nuclear Objective Vitals Vital Signs Date Time Temp Pulse Resp B/P (MAP) Pulse Ox O2 Delivery O2 Flow Rate FiO2 01/13/18 08:00 98.0 102 18 132/66 (88) 96 01/13/18 08:00 100 01/13/18 04:00 99 01/13/18 04:00 97.5 101 19 146/69 (94) 95 01/13/18 00:17 103 01/13/18 00:00 97.8 102 21 133/70 (91) 93 01/12/18 20:31 97.7 120 20 142/73 (96) 94 01/12/18 19:55 108 I/O 01/12/18 01/12/18 01/12/18 01/13/18 01/13/18 01/13/18 07:00 15:00 23:00 07:00 15:00 23:00 Intake Total 1300 ml 100 ml Output Total 650 ml 100 ml 500 ml Balance 650 ml 0 ml -500 ml Intake Oral 200 ml 100 ml IV Total 1100 ml Output Urine Total 650 ml 100 ml 500 ml # Voids 3 2 # Bowel Movements 3 Result Diagram: 01/13/18 0706 01/13/18 0706 Imaging Last Impressions Myocardial Perfusion Scan Nuc Med 01/13/18 0000 Signed Impressions: Service Date/Time: January 11:19 - CONCLUSION: 1. 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 Wall motion abnormalities in the same segments as the fixed perfusion defect. The global ejection fraction is also depressed at 40%%. RISK CATEGORY: Intermediate (1-3%% Annual Mortality Rate) Mynor Langston MD Chest X-Ray 01/11/18 193 Signed Impressions: Service Date/Time: Thursday, January 11, 2018 19:41 - CONCLUSION: No acute disease. Kvng Ortiz MD Head CT 01/11/18 0000 Signed Impressions: Service Date/Time: Thursday, January 11, 2018 20:32 - CONCLUSION: Normal examination. Kvng Ortiz MD Objective Remarks GENERAL: This is a well-nourished, well-developed patient, in no apparent distress. SKIN: No rashes, warm and dry HEAD: Atraumatic. Normocephalic. EYES: PERRLA . No scleral icterus. ENT: No bleeding, or drainage, Airway patent. NECK: Trachea midline. Supple CARDIOVASCULAR: RRR, no gallops, or rubs. RESPIRATORY: Fair air entry bilaterally. No W, R, or R GASTROINTESTINAL: Abdomen soft, non-tender, nondistended. Positive bowel sounds MUSCULOSKELETAL: Extremities without clubbing, cyanosis, or edema. Pedal pulses appreciated NEUROLOGICAL: Awake and alert. Moves all extremity. Normal speech.no focal neurological deficit A/P Assessment and Plan 1. NSTEMI EKG significant for sinus tachycardia with a left bundle branch block, no ST segment elevation/depressions, personally reviewed Initial troponin elevated at 0.26 Heparin drip Cardiology consulted, appreciate recommendations, going for nuclear stress test today 4/5>> Wall motion abnormalities in the same segments as the fixed perfusion defect. The global ejection fraction is also depressed at 40%%. Aspirin Morphine Serial troponins/EKGs 2. Urinary tract infection UA consistent with UTI Follow urine culture Rocephin IV 3. Hyperkalemia Potassium elevated at 5.5 Peaked T waves on EKG IV fluid hydration Repeat potassium in am 4. Diabetes mellitus Sliding scale insulin Monitor blood glucose 5. Hypertension/hyperlipidemia/COPD/CAD/BPH Continue home medications 6. Possible metastatic cancer CT of the abdomen/pelvis significant for numerous sclerotic areas throughout all of the bony structures concerning for possible metastatic disease Continue outpatient workup Alexi Rojas MD Jan 13, 2018 16:56
[2018-01-13] MEDS: TAMSULOSIN HCL 0.4 MG CAP PO SCH (20:41)
[2018-01-13] MEDS: cefTRIAXone INJ 1,000 MG in SODIUM CHLORIDE 0.9% INJ 100 ML IV SCH (20:42)
[2018-01-14] VITALS: BP 103/51; PULSE 101; RESP 20; TEMP 98.6; O2SAT 93
[2018-01-14 04:00] VITALS: BP 130/60; PULSE 107; RESP 20; TEMP 97.8; O2SAT 100
[2018-01-14 08:00] VITALS: BP 137/79; PULSE 102; PULSE 97; RESP 18; TEMP 97.8; O2SAT 96
[2018-01-14] MEDS: ASPIRIN EC 325 MG TABEC PO SCH (08:57)
[2018-01-14] MEDS: ATORVASTATIN 40 MG TAB PO SCH (08:57)
[2018-01-14] MEDS: LOSARTAN 50 MG TAB PO SCH (08:58)
[2018-01-14] MEDS: predniSONE 5 MG TAB PO SCH (08:58)
[2018-01-14] MEDS: PANTOPRAZOLE SOD 40 MG DELAYED RELEASE TAB PO SCH (08:58)
[2018-01-14] MEDS: FLUTICASONE PROPIONATE 50 MCG/ACT 16 GM NASAL SPRAY EACH NARE SCH (08:58)
[2018-01-14] MEDS: INSULIN ASPART SUPPLEMENTAL SCALE SQ SCH ×2 (08:58→12:08)
[2018-01-14] MEDS: SODIUM CHLORIDE 0.9% FLUSH 10 ML FLUSH IV FLUSH SCH (08:58)
[2018-01-14] MEDS: MUPIROCIN 2% OINT 22 GM TUBE TOPICAL SCH (08:59)
[2018-01-14] MEDS ORDERED: METOPROLOL SUCCINATE 25 MG EXTENDED RELEASE TAB PO SCH (09:00)
--- NOTE | 2018-01-14 09:24 | PD.CARD.PN ---
Subjective Subjective Remarks no angina. no complaints Objective Medications Current Medications Medications (Trade) Dose Ordered Sig/Stacey Route Start Time Stop Time Status Last Admin (NS Flush) 2 ml BID IV FLUSH 01/12/18 09:00 01/12/18 20:11 (NS Flush) 2 ml UNSCH PRN IV FLUSH 01/11/18 23:30 (Ecotrin Ec) 325 mg DAILY PO 01/12/18 09:00 01/14/18 08:57 Ceftriaxone Sodium 1000 mg/ Sodium Chloride 100 ml @ 200 mls/hr Q24H IV 01/12/18 20:00 01/13/18 20:42 Sodium Chloride 1,000 ml @ 100 mls/hr Q10H IV 01/11/18 23:30 01/13/18 16:00 (Morphine Inj) 4 mg Q3H PRN IV PUSH 01/11/18 23:30 01/13/18 20:47 (Welchol) 1,875 mg Q12H PO 01/12/18 11:00 01/13/18 23:29 (Flomax) 0.4 mg HS PO 01/12/18 21:00 01/13/18 20:41 (Cozaar) 50 mg DAILY PO 01/12/18 09:00 01/14/18 08:58 (Protonix) 40 mg DAILY PO 01/12/18 09:00 01/14/18 08:58 (Lipitor) 40 mg DAILY PO 01/12/18 09:00 01/14/18 08:57 (D50w (Vial) Inj) 50 ml UNSCH PRN IV PUSH 01/12/18 03:30 (Glucagon Inj) 1 mg UNSCH PRN OTHER 01/12/18 03:30 (NovoLOG SUPPLEMENTAL SCALE) 1 ACHS SLIDING SCALE SQ 01/12/18 08:00 01/14/18 08:58 (Flonase Gavino Spr) 1 spray BID EACH NARE 01/12/18 21:00 (Bactroban 2% Oint) 1 applic TID TOPICAL 01/12/18 13:00 01/12/18 17:57 (Nitrostat Sl) 0.4 mg Q5M PRN SL 01/12/18 09:45 (Deltasone) 5 mg DAILY PO 01/13/18 09:00 01/14/18 08:58 (Toprol Xl) 50 mg DAILY PO 01/14/18 09:00 01/14/18 08:58 Vital Signs / I&O Vital Signs Date Time Temp Pulse Resp B/P (MAP) Pulse Ox O2 Delivery O2 Flow Rate FiO2 01/14/18 08:00 97.8 102 18 137/79 (98) 96 01/14/18 04:00 97.8 107 20 130/60 (83) 100 01/14/18 00:00 98.6 101 20 103/51 (68) 93 01/13/18 23:49 97 01/13/18 22:31 18 01/13/18 20:00 99.0 101 19 104/55 (71) 96 01/13/18 20:00 100 01/13/18 16:00 97.7 93 16 92/60 (71) 95 01/13/18 12:00 97.2 88 16 120/72 (88) 100 I/O 01/13/18 01/13/18 01/13/18 01/14/18 01/14/18 01/14/18 07:00 15:00 23:00 07:00 15:00 23:00 Intake Total 540 ml 320 ml Output Total 500 ml 400 ml Balance -500 ml 140 ml 320 ml Intake Oral 540 ml 320 ml Output Urine Total 500 ml 400 ml # Voids 7 # Bowel Movements 0 1 Physical Exam GENERAL: Well developed, well nourished. No acute distress SPECT: no ischemia Imaging Last 48 hours Impressions Myocardial Perfusion Scan Nuc Med 01/13/18 0000 Signed Impressions: Service Date/Time: January 11:19 - CONCLUSION: 1. 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 Wall motion abnormalities in the same segments as the fixed perfusion defect. The global ejection fraction is also depressed at 40%%. RISK CATEGORY: Intermediate (1-3%% Annual Mortality Rate) Mynor Langston MD Assessment and Plan Problem List: (1) Coronary artery disease ICD Codes: I25.10 - Atherosclerotic heart disease of [place] coronary artery without angina pectoris (2) Elevated troponin level ICD Codes: R74.8 - Abnormal levels of other serum enzymes (3) Altered mental status ICD Codes: R41.82 - Altered mental status, unspecified Status: Acute Assessment and Plan No ischemia by SPECT. Doubt ACS. Never had angina. Problem Qualifiers (1) Altered mental status: Qualified Codes: R41.82 - Altered mental status, unspecified Eric Bundy MD Jan 14, 2018 09:24
[2018-01-14] MEDS ORDERED: METO1TAB42 PO (11:25)
[2018-01-14] MEDS ORDERED: PRED5TAB PO (11:25)
[2018-01-14 11:30] VITALS: BP 135/62; PULSE 91; RESP 17; TEMP 98.3; O2SAT 96
[2018-01-14] MEDS: COLESEVELAM HCL 625 MG TAB PO SCH (12:07)
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
== END 2018-01-14 12:33 | disposition home or self-care (01) | DRG 690 ==
LOC: NEPD 16:12 → NEDA 21:10 → NEDH 01-12 01:10 → N04A 01-12 13:00
PROVIDERS: ADMIT Hospitalist; ATTEND Hospitalist
DX: N39.0 Urinary tract infection, site not specified (principal); I95.9 Hypotension, unspecified; E87.5 Hyperkalemia; J44.9 Chronic obstructive pulmonary disease, unspecified; E83.41 Hypermagnesemia; E11.9 Type 2 diabetes mellitus without complications; I44.7 Left bundle-branch block, unspecified; N20.1 Calculus of ureter; I25.10 Atherosclerotic heart disease of native coronary artery without angina pectoris; R00.0 Tachycardia, unspecified; N40.0 Benign prostatic hyperplasia without lower urinary tract symptoms; I10 Essential (primary) hypertension; R74.8 Abnormal levels of other serum enzymes; B95.2 Enterococcus as the cause of diseases classified elsewhere; E78.5 Hyperlipidemia, unspecified; R41.82 Altered mental status, unspecified; R63.4 Abnormal weight loss; I25.2 Old myocardial infarction; Z87.442 Personal history of urinary calculi; Z79.82 Long term (current) use of aspirin; Z95.5 Presence of coronary angioplasty implant and graft; Z87.891 Personal history of nicotine dependence; Z82.49 Family history of ischemic heart disease and other diseases of the circulatory system; Z82.3 Family history of stroke; Z80.0 Family history of malignant neoplasm of digestive organs; I71.4 Abdominal aortic aneurysm, without rupture; Z88.5 Allergy status to narcotic agent; Z79.899 Other long term (current) drug therapy
CPT/HCPCS: 70450; 71045; 74176; 78452; 80048; 80053; 80307; 81001; 82140; 82550; 82552; 82948; 83690; 83735; 84439; 84443; 84481; 84484; 85007; 85025; 85027; 85610; 85730; 87077; 87086; 87186; 93005; 93017; 96361; 96365; 96374; 96375; A9502; J0696; J1644; J1815; J1885; J2270; J2405; J2785; J7030; J7512

== ENCOUNTER 2018-01-23 09:52 | Inpatient (IN) | payer BC, MEDICARE ==
[~2018-01-23] VITALS: Ht 180.3 cm; Wt 82.0 kg
[2018-01-23] VITALS (27 sets, daily range): BP systolic 50–143; BP diastolic 23–82; PULSE 76–142; RESP 16–38; TEMP 97.7–100.5; O2SAT 97–100
[~2018-01-23 09:52] MED LIST changes: +LORA-474 PO; -PRED10 PO; +PRED5TAB PO
[2018-01-23] MEDS ORDERED: ETOMIDATE 40 MG/20 ML VIAL ONE (10:01)
[2018-01-23] MEDS ORDERED: SODIUM CHLOR 0.9% 1000 ML INJ 1,000 ML IV SCH (10:12)
[2018-01-23] MEDS ORDERED: ETOMIDATE 20 MG/10 ML VIAL IV PUSH ONE (10:15)
[2018-01-23] MEDS ORDERED: SUCCINYLCHOLINE CHLORIDE 100 MG/5 ML SYRINGE IV PUSH ONE (10:15)
[2018-01-23] MEDS ORDERED: SODIUM CHLOR 0.9% 1000 ML INJ 1,000 ML IV ONE ×2 (10:15→13:00)
[2018-01-23] MEDS ORDERED: MIDAZOLAM HCL 5 MG/5 ML VIAL IV PUSH ONE ×2 (10:15→10:45)
[2018-01-23] MEDS ORDERED: SODIUM CHLORIDE 0.9% FLUSH 10 ML FLUSH IV FLUSH PRN (10:15)
[2018-01-23] MEDS ORDERED: MIDAZOLAM HCL 5 MG/ML VIAL (1 ML) ONE ×3 (10:19→20:53)
--- NOTE | 2018-01-23 10:30 | PD ---
HPI Chief Complaint: Altered Mental Status Time Seen by Provider: 10:10 Travel History International Travel<30 days: No Contact w/Intl Traveler<30days: No Traveled to known affect area: No History of Present Illness HPI The patient is a 72-year-old male who presents to the emergency department via EMS for altered mental status. Per EMS they got a report that the patient was unconscious and unresponsive. EMS states when they arrived the patient's GCS was 3, he was nonresponsive. They stated he had poor respiratory effort, therefore, they light him on the stretcher and started performing bag valve ventilation. EMS states that the oxygen delivery did improve the patient' s GCS to a 12-13. The patient's initial O2 saturations were low, in the 60s, did improve to the 90s on a nonrebreather. Upon arrival the patient was tachycardic with a heart rate in the 140s, confused, appeared delirious, and was not following simple commands. He tried to get out of bed several times, not answer questions appropriately or follow commands. No further information was obtainable from the patient. [facility] Past Medical History AAA: Yes Arthritis: Yes Asthma: No Heart Rhythm Problems: Yes (LBBB) Cancer: No Cardiovascular Problems: Yes (MA, STENTS) High Cholesterol: Yes Chest Pain: Yes (with the mi in 1993 and 2002 ) Congestive Heart Failure: No COPD: Yes Cerebrovascular Accident: No Coronary Artery Disease: Yes Diabetes: Yes Diminished Hearing: Yes Genitourinary: Yes (bph) Hiatal Hernia: Yes (4 years ago it was fixed ) Hypertension: Yes Kidney Stones: Yes Musculoskeletal: Yes Neurologic: No Psychiatric: No Reproductive: No Respiratory: Yes Immunizations Current: Yes Migraines: No Myocardial Infarction: Yes (1993, 2002) Renal Failure: Yes Seizures: No Sleep Apnea: No ?: Not Past Surgical History Abdominal Surgery: Yes (hernia repair, apendix removal) Appendectomy: Yes Cardiac Surgery: No Ear Surgery: Yes (cataract) Endocrine Surgery: No Eye Surgery: Yes Genitourinary Surgery: No Gynecologic Surgery: No Oral Surgery: No Thoracic Surgery: Yes (fusion of spine) Social History Alcohol Use: Yes (occasionally) Tobacco Use: No Substance Use: No Allergies-Medications (Allergen,Severity, Reaction): Coded Allergies: Penicillins (Verified Allergy, Mild, Rash, 01/23/18) acetaminophen (Verified Adverse Reaction, Unknown, Confusion, 4/15/18) lorazepam (Verified Adverse Reaction, Unknown, Confusion, 01/23/18) oxycodone (Verified Adverse Reaction, Unknown, Confusion, 01/23/18) Reported Meds & Prescriptions Reported Meds & Active Scripts Active Prednisone 5 Mg Tab 5 Mg PO DAILY Percocet (Oxycodone-Acetaminophen) 10-325 mg Tab 1 Tab PO Q6H PRN Reported Ativan (Lorazepam) 1 Mg Tab 1 Mg PO TID PRN Levofloxacin 500 Mg Tablet 500 Mg PO DAILY Omeprazole 40 Mg Cap 40 Mg DAILY Flexeril (Cyclobenzaprine HCl) 10 Mg Tab 10 Mg PO TID PRN Nitrostat SL (Nitroglycerin) 0.4 Mg Subl 0.4 Mg SL DIRECTED PRN 1 tablet under the tongue as needed for chest pain. Repeat every 5 minutes for a total of 3 DOSES or call 911 if NO relief. Meloxicam 15 Mg Tab 15 Mg PO DAILY Fluticasone Nasal [place] 50 Mcg/Act Naspr 50 Mcg EACH NARE BID 50 mcg/spray Aspirin Low Dose (Aspirin) 81 Mg Chew 81 Mg CHEW DAILY Mupirocin Topical (Mupirocin) 2 % Oint 1 Applic TOPICAL TID Tamsulosin (Tamsulosin HCl) 0.4 Mg Cap 0.4 Mg HS Jardiance (Empagliflozin) 10 Mg Tab 10 Mg PO DAILY Benicar (Olmesartan) 20 Mg Tab 20 Mg PO DAILY Welchol (Colesevelam HCl) 625 Mg Tab 1,875 Mg PO BID Metoprolol Succinate ER 24 HR (Metoprolol Succinate) 25 Mg Tab 25 Mg PO DAILY Rosuvastatin (Rosuvastatin Calcium) 20 Mg Tab 20 Mg PO DAILY Review of Systems ROS Limitations: Clinical Condition, Altered Mental Status, Poor Historian Except as stated in HPI: all other systems reviewed are Neg Neurologic: Positive: Change in Mentation Physical Exam Narrative GENERAL: Awake, confused 72-year-old male who appears his stated age and does not follow commands. SKIN: Focused skin assessment warm/dry. HEAD: Atraumatic. Normocephalic. EYES: Pupils equal and round. 2 mm bilateral. ENT: No nasal bleeding or discharge. Dry mucous membranes. NECK: Trachea midline. No JVD. CARDIOVASCULAR: Regular, tachycardic with a heart rate in the 140s. RESPIRATORY: Tachypnea, respiratory rate 22. Scattered rhonchi. Abdomen: Thin, soft, nontender. MUSCULOSKELETAL: No obvious deformities. No clubbing. No cyanosis. No edema. Back: No tenderness over the thoracic or lumbar vertebrae. No visible sacral decubitus ulcers. NEUROLOGICAL: Eyes open, confused, inappropriate words. Does not follow commands. PSYCHIATRIC: Confused. Data Data Last Documented VS Vital Signs Date Time Temp Pulse Resp B/P (MAP) Pulse Ox O2 Delivery O2 Flow Rate FiO2 01/23/18 12:01 140 105/42 01/23/18 11:52 16 100 Ventilator 50 01/23/18 09:55 100.5 Orders Orders Etomidate Inj (Amidate Inj) (01/23/18 10:01) Electrocardiogram (01/23/18 10:12) Ammonia (01/23/18 10:12) Complete Blood Count With Diff (01/23/18 10:12) Comprehensive Metabolic Panel (01/23/18 10:12) Creatine Kinase (Cpk) (01/23/18 10:12) Prothrombin Time / Inr (Pt) (01/23/18 10:12) Act Partial Throm Time (Ptt) (01/23/18 10:12) Troponin I (01/23/18 10:12) Thyroid Stimulating Hormone (01/23/18 10:12) Urinalysis - C+S If Indicated (01/23/18 10:12) Lactic Acid Sepsis Protocol (01/23/18 10:12) Arterial Blood Gas (Abg) (01/23/18 10:12) Blood Culture (01/23/18 10:12) Chest, Single Ap (01/23/18 10:12) Ct Brain W/O Iv Contrast(Rout) (01/23/18 10:12) Blood Glucose (01/23/18 10:12) Ecg Monitoring (01/23/18 10:12) Iv Access Insert/Monitor (01/23/18 10:12) Oximetry (01/23/18 10:12) Sodium Chloride 0.9% Flush (Ns Flush) (01/23/18 10:15) Sodium Chlor 0.9% 1000 Ml Inj (Ns 1000 M (01/23/18 10:12) Drug Screen, Random Urine (01/23/18 10:12) Alcohol (Ethanol) (01/23/18 10:12) Sodium Chlor 0.9% 1000 Ml Inj (Ns 1000 M (01/23/18 10:15) Midazolam Inj (Versed Inj) (01/23/18 10:15) Succinylcholine Inj (Quelicin Inj) (01/23/18 10:15) Etomidate Inj (Amidate Inj) (01/23/18 10:15) Urinary Catheter Insert/Apply (01/23/18 10:12) Sunil-Gastric Tube Insert/Mon (01/23/18 10:12) Midazolam Inj (Versed Inj) (01/23/18 10:19) Midazolam Inj (Versed Inj) (01/23/18 10:45) Vecuronium 10 Mg Inj (Norcuron 10 Mg Inj (01/23/18 10:45) Midazolam Inj (Versed Inj) (01/23/18 10:42) Phenylephrine Inj (Neosynephrine Inj) (01/23/18 10:56) Phenylephrine Inj (Neosynephrine Inj) (01/23/18 11:03) Norepinephrine Inj (Levophed Inj) (01/23/18 11:04) Chest, Single Ap (01/23/18 ) Sodium Bicarbonate 8.4% Inj (Sodium Bica (01/23/18 11:30) ^ Infusion (01/23/18 ) Norepinephrine-Dextrose Drip (Levophed-D (01/23/18 11:30) Terbutaline Inj (Brethine Inj) (01/23/18 11:30) Midazolam 100 Mg/100 Ml Inj (Versed Inj) (01/23/18 11:30) Fentanyl Drip (Fentanyl Drip) (01/23/18 11:30) Urine Culture (01/23/18 10:20) Vancomycin Inj (Vancomycin Inj) (01/23/18 11:44) Metronidazole 500 Mg Inj (Flagyl 500 Mg (01/23/18 11:44) Phenylephrine Inj (Neosynephrine Inj) (01/23/18 12:45) Terbutaline Inj (Brethine Inj) (01/23/18 12:45) Ct Abd/Pel W/O Iv Contrast (01/23/18 ) Sodium Chlor 0.9% 1000 Ml Inj (Ns 1000 M (01/23/18 13:00) Admit Order (Ed Use Only) (01/23/18 12:50) Labs Laboratory Tests Test 01/23/18 10:20 01/23/18 11:11 White Blood Count 20.2 TH/MM3 Red Blood Count 3.24 MIL/MM3 Hemoglobin 8.9 GM/DL Hematocrit 29.0 % Mean Corpuscular Volume 89.3 FL Mean Corpuscular Hemoglobin 27.3 PG Mean Corpuscular Hemoglobin Concent 30.6 % Red Cell Distribution Width 15.9 % Platelet Count 507 TH/MM3 Mean Platelet Volume 8.6 FL Neutrophils (%) (Auto) 65.2 % Lymphocytes (%) (Auto) 27.7 % Monocytes (%) (Auto) 6.1 % Eosinophils (%) (Auto) 0.3 % Basophils (%) (Auto) 0.7 % Neutrophils # (Auto) 13.1 TH/MM3 Lymphocytes # (Auto) 5.6 TH/MM3 Monocytes # (Auto) 1.2 TH/MM3 Eosinophils # (Auto) 0.1 TH/MM3 Basophils # (Auto) 0.1 TH/MM3 CBC Comment AUTO DIFF Differential Total Cells Counted 100 Neutrophils % (Manual) 53 % Band Neutrophils % 10 % Lymphocytes % 26 % Monocytes % 4 % Neutrophils # (Manual) 13.9 TH/MM3 Metamyelocytes 3 % Myelocytes 3 % Nucleated Red Blood Cells 1 /100 WBC Differential Comment FINAL DIFF MANUAL Plasma Cells 1 % Platelet Estimate HIGH Platelet Morphology Comment NORMAL Ovalocytes 1+ Prothrombin Time 12.2 SEC Prothromb Time International Ratio 1.2 RATIO Activated Partial Thromboplast Time 28.1 SEC Urine Color YELLOW Urine Turbidity CLOUDY Urine pH 5.0 Urine Specific [place] 1.023 Urine Protein 100 mg/dL Urine Glucose (UA) NEG mg/dL Urine Ketones NEG mg/dL Urine Occult Blood LARGE Urine Nitrite NEG Urine Bilirubin NEG Urine Urobilinogen LESS THAN 2.0 MG/DL Urine Leukocyte Esterase LARGE Urine RBC /hpf Urine WBC 53 /hpf Urine WBC Clumps MOD Urine Amorphous Sediment MANY Urine Bacteria OCC /hpf Urine Hyaline Casts 13 /lpf Urine Mucus FEW /lpf Microscopic Urinalysis Comment CATH-CULTURE IND Blood Urea Nitrogen 65 MG/DL Creatinine 3.43 MG/DL Random Glucose 230 MG/DL Total Protein 6.5 GM/DL Albumin 1.7 GM/DL Calcium Level 8.0 MG/DL Alkaline Phosphatase 1207 U/L Aspartate Amino Transf (AST/SGOT) 140 U/L Alanine Aminotransferase (ALT/SGPT) 21 U/L Total Bilirubin 0.7 MG/DL Sodium Level 137 MEQ/L Potassium Level 5.4 MEQ/L Chloride Level 103 MEQ/L Carbon Dioxide Level 13.8 MEQ/L Anion Gap 20 MEQ/L Estimat Glomerular Filtration Rate 18 ML/MIN Lactic Acid Level 8.4 mmol/L Ammonia 43 MCMOL/L Total Creatine Kinase 143 U/L Troponin I LESS THAN 0.02 NG/ML Thyroid Stimulating Hormone 3rd Gen 0.389 uIU/ML Urine Opiates Screen POS Urine Barbiturates Screen NEG Urine Amphetamines Screen NEG Urine Benzodiazepines Screen NEG Urine Cocaine Screen NEG Urine Cannabinoids Screen NEG Ethyl Alcohol Level LESS THAN 3 MG/DL Blood Gas Puncture Site ART LINE Blood Gas Patient Temperature 98.6 Blood Gas HCO3 13 mmol/L Blood Gas Base Excess -15.5 mmol/L Blood Gas Oxygen Saturation 98 % Arterial Blood pH 7.06 Arterial Blood Partial Pressure CO2 47 mmHg Arterial Blood Partial Pressure O2 451 mmHG Arterial Blood Oxygen Content 11.6 Vol % Arterial Blood Carboxyhemoglobin 0.6 % Arterial Blood Methemoglobin 0.7 % Blood Gas Hemoglobin 7.5 G/DL Oxygen Delivery Device VENTILATOR Blood Gas Ventilator Setting 14/500/+5/100 Blood Gas Inspired Oxygen 100 % [facility] Medical Decision Making Medical Screen Exam Complete: Yes Emergency Medical Condition: Yes Medical Record Reviewed: Yes Interpretation(s) EKG reveals left bundle branch block with a QRS of 154 ms. No significant changes when compared to EKG performed on January 12, 2018. Differential Diagnosis Differential diagnosis includes encephalopathy, delirium, sepsis, metastatic brain disease, hypercapnia, hypoxia, CVA, metabolic encephalopathy, toxic encephalopathy, drug encephalopathy, pulmonary embolism. Narrative Course IV was established, labs are drawn and sent, the patient was placed on cardiac telemetry monitoring and continuous pulse oximetry monitoring. Upon arrival the patient was confused, delirious, tachycardic with a heart rate in the 140s, unable to initially get an O2 saturation, patient was not following commands and try to get out of bed. Therefore, the patient was intubated using rapid sequence intubation to protect the airway and to facilitate medical treatment. The patient was administered Versed for sedation. Briseno catheter and orogastric tube were placed. Blood cultures, ammonia level, lactic acid were sent to lab. Patient was administered 2 L of IV fluids. Stat CT the brain and CT pulmonary angiogram are ordered. The patient's female significant other states the patient was recently in the hospital and discharged last week. The patient then had an outpatient PET scan which reveals metastatic cancer to the lower spine with a mass within the lungs. He was scheduled to see either Dr. Coleman or Dr. Carter on an outpatient basis. The patient's female paint spray tender does state he has had a recent weight loss of over 30 pounds and increasing pain in the lower aspect of the back and sacrum. The patient recently started taking Percocet. She does state the patient was confused this morning, talking about a mortgage, when they are to have a mortgage in house. She does state the patient's confusion appeared to start this morning. The patient was initially sedated with Versed, however, the best blood pressure the patient has a systolic of 100. He did drop his systolic once again, consistent with EMS findings. Therefore, the patient was administered 2 separate doses of phenylephrine 100 mcg to elevated blood pressure while an arterial line was placed in left radial artery and a central line was placed in the right internal jugular vein. The patient was then placed on Levophed. The patient did receive Versed and vecuronium prior to procedures. The patient was placed on Levophed to keep the mean arterial pressure greater than 65. The patient's white count was noted to be elevated at 20, lactic was greater than 8 , consistent with severe septic shock. The patient was covered with broad-spectrum antibiotics. The patient's blood pressure continued to be low, therefore, was placed on Casey-Synephrine drip. I discussed the patient with the on-call residential collections who agrees with admission. Critical Care Narrative Aggregate critical care time was 50 minutes. Time to perform other separately billable procedures was not included in the critical care time. My time did not include minutes spent treating any other patients simultaneously or on activities that did not directly contribute to the patient's treatment. The services I provided to this patient were to treat and/or prevent clinically significant deterioration that could result in: Anoxia, hypoxia, aspiration, hemorrhagic shock, septic shock, . I provided critical care services requiring my management, as noted below: Chart data review, documentation time, medication orders and management, vital sign assessments/reviewing monitor data, ordering and reviewing lab tests, ordering and interpreting/reviewing x-rays and diagnostic studies, care of the patient and discussion of the patient with the admitting physicians. Procedures Procedure Narrative The patient was put in optimal position for the procedure. Rapid sequence intubation was initiated by me using 20 milligrams of etomidate IV and 100 milligrams of succinylcholine IV. The patient was intubated with a 8.5 cuffed endotracheal tube. Tube placement was confirmed by visualization of the tube and balloon passing through the cords, capnometry and subsequent chest x-ray. Breath sounds were equal and well aerated bilaterally postintubation. No breath sounds over stomach. Patient tolerated procedure well. CENTRAL VENOUS LINE: The site was prepped with Betadine and sterilely draped. It was infiltrated with 1% lidocaine plain. The deep vein was cannulated using normal Seldinger technique. A central line was placed in the right internal jugular site under ultrasound guidance and secured with simple interrupted suture. The site was sterilely dressed. The patient tolerated the procedure well. An emergent arterial line was placed in the left radial artery. The area was draped and prepped, cleaned with ChloraPrep, and arterial line was placed under ultrasound guidance Via Seldinger technique. There was good blood return, arterial, and the patient tolerated the procedure without difficulty. There is no obvious complications. Sepsis Criteria SIRS Criteria (2 or more): Heart rate over 90, RR > 20 or PaCO2 < 32, WBC > 72008, < 4000 or > 10% bands Septic Shock Criteria: Unresponsive to 30ml/kg fluid bolus, Lactic acid >=4 Criteria Outcome: Meets septic shock criteria Physician Communication Physician Communication The on-call residential collections was paged for admission. I discussed the patient with Dr. Enriquez who agrees with admission. Diagnosis Primary Impression: Septic shock Additional Impressions: UTI (urinary tract infection) Qualified Codes: N39.0 - Urinary tract infection, site not specified; R31.9 - Hematuria, unspecified Acute kidney injury Acidosis Admitting Information Admitting Physician Requests: Admit Condition: Critical David Stpehenson MD Jan 23, 2018 10:30
[2018-01-23] MEDS ORDERED: VECURONIUM BROMIDE 10 MG VIAL IV PUSH ONE (10:45)
[2018-01-23 10:55] LABS: AUTOMATED NEUTROPHIL # 13.1 TH/MM3 (1.8-7.7); BASOPHIL # 0.1 TH/MM3 (0-0.2); BASOPHIL % 0.7 % (0.0-2.0); EOSINOPHIL # 0.1 TH/MM3 (0-0.4); EOSINOPHIL % 0.3 % (0.0-4.0); HEMOGLOBIN 8.9 GM/DL (13.0-17.0); LYMPH % 27.7 % (9.0-44.0); LYMPHOCYTE # 5.6 TH/MM3 (1.0-4.8); MEAN CELL VOLUME 89.3 FL (80.0-100.0); MEAN CORPUSCULAR HEMOGLOBIN 27.3 PG (27.0-34.0); MEAN CORPUSCULAR HGB CONC 30.6 % (32.0-36.0); MEAN PLATELET VOLUME 8.6 FL (7.0-11.0); MONO % 6.1 % (0.0-8.0); MONOCYTE # 1.2 TH/MM3 (0-0.9); NEUT % 65.2 % (16.0-70.0); PLATELET COUNT 507 TH/MM3 (150-450); RED BLOOD COUNT 3.24 MIL/MM3 (4.50-5.90); RED CELL DISTRIBUTION WIDTH 15.9 % (11.6-17.2); WHITE BLOOD COUNT 20.2 TH/MM3 (4.0-11.0)
[2018-01-23] MEDS ORDERED: PHENYLEPHRINE HCL 10 MG/ML VIAL ONE ×2 (10:56→11:03)
[2018-01-23] MEDS ORDERED: NOREPINEPHRINE 4 MG/4 ML AMP ONE (11:04)
[2018-01-23 11:06] LABS: INTERNATIONAL NORMALIZED RATIO 1.2 RATIO; PROTHROMBIN TIME - PATIENT 12.2 SEC (9.8-11.6)
--- NOTE | 2018-01-23 11:06 | RADRPT ---
EXAM DATE/TIME: 01/23/2018 10:17 [facility] COMPARISON: CHEST SINGLE AP, January 11, 2018, 19:41. INDICATIONS : Post intubation MEDICAL HISTORY : Aneurysm, abdominal. Myocardial infarction. Chronic obstructive,pulmonary disease SURGICAL HISTORY : Coronary artery stent. Appendectomy ENCOUNTER: Initial ACUITY: 1 day PAIN SCORE: Non-responsive. LOCATION: Bilateral cranial FINDINGS: ET in good position. Nasogastric tube just across the GE junction. Lungs clear. The heart and prob ably vascularity are normal. CONCLUSION: ET in good position. Nasogastric tube could be advanced. Salvador Maya MD FACR on January 23, 2018 at 11:04 Board Certified Radiologist. This report was verified electronically.
[2018-01-23 11:09] LABS: ALT (GPT) 21 U/L (12-78)
[2018-01-23 11:19] LABS: LACTIC ACID SEPSIS PROTOCOL 8.4 mmol/L (0.4-2.0)
[2018-01-23 11:23] LABS: ALKALINE PHOSPHATASE 1207 U/L (45-117); TOTAL BILIRUBIN ADULT 0.7 MG/DL (0.2-1.0); TOTAL PROTEIN 6.5 GM/DL (6.4-8.2); TROPONIN I LESS THAN 0.02 NG/ML (0.02-0.05)
[2018-01-23 11:26] LABS: AMORPHOUS SEDIMENT, URINE MANY; BACTERIA, URINE OCC /hpf; BILIRUBIN, URINE NEG (NEG); BLOOD, URINE LARGE (NEG); GLUCOSE,URINE NEG (NEG); HYALINE CAST, URINE 13 /lpf (RARE); KETONE, URINE NEG (NEG); MUCUS URINE FEW /lpf (OCC); NITRITE,URINE NEG (NEG); URINE COLOR YELLOW (YELLW/STRAW); URINE LEUKOCYTE ESTERASE LARGE (NEG); WHITE BLOOD CELL CLUMPS MOD
[2018-01-23 11:28] LABS: BANDS 10 % (0-6); CORRECTED NUCLEATED RBC 1 /100 WBC (0-0); LYMPHOCYTES 26 % (9-44); METAMYELOCYTES 3 % (0-1); MONOCYTES 4 % (0-8); MYELOCYTES 3 % (0-0); NEUTROPHIL # MANUAL DIFF 13.9 TH/MM3 (1.8-7.7); NUCLEATED RED BLOOD CELL 1 (0-0); PLASMA CELLS 1 % (0-0); POLYS (SEG NEUTROPHILS) 53 % (16-70)
[2018-01-23 11:29] LABS: OVALOCYTES 1+ (NORMAL)
[2018-01-23] MEDS ORDERED: SODIUM BICARBONATE 8.4% INJ 50 MEQ/50 ML SYR IV PUSH ONE (11:30)
[2018-01-23] MEDS ORDERED: TERBUTALINE INJ 1 MG/ML AMP SQ PRN ×2 (11:30→12:45)
[2018-01-23] MEDS ORDERED: MIDAZOLAM 100 MG/100 ML INJ 100 ML IV PRN (11:30)
[2018-01-23 11:32] LABS: ALBUMIN 1.7 GM/DL (3.4-5.0); AST (GOT) 140 U/L (15-37); BICARBONATE 13.8 MEQ/L (21.0-32.0); BLOOD UREA NITROGEN 65 MG/DL (7-18); CHLORIDE 103 MEQ/L (98-107); CREATININE 3.43 MG/DL (0.60-1.30); GLOMERULAR FILTRATION RATE 18 ML/MIN (>89); GLUCOSE,RANDOM 230 MG/DL (74-106); SODIUM (NA) 137 MEQ/L (136-145)
[2018-01-23] MEDS ORDERED: VANCOMYCIN INJ 1,000 MG in SODIUM CHLOR 0.9% 250 ML INJ 250 ML IV STA (11:44)
[2018-01-23] MEDS ORDERED: metroNIDAZOLE 500 MG INJ 100 ML IV STA (11:44)
[2018-01-23] MEDS ORDERED: AZTREONAM INJ 2,000 MG in SODIUM CHLORIDE 0.9% INJ 100 ML IV STA (11:44)
--- NOTE | 2018-01-23 11:50 | RADRPT ---
EXAM DATE/TIME: 01/23/2018 11:22 [facility] COMPARISON: CHEST SINGLE AP, January 23, 2018, 10:17. INDICATIONS : Post procedure. S/P R IJ central line. MEDICAL HISTORY : Aneurysm, abdominal. Myocardial infarction. Chronic obstructive pulmonary disease SURGICAL HISTORY : Coronary artery stent. Appendectomy ENCOUNTER: Initial ACUITY: 1 day PAIN SCORE: Non-responsive. LOCATION: Bilateral chest FINDINGS: ET tube, nasogastric tube and central line in good position. There is no pneumothorax. Lungs remain clear. CONCLUSION: Support apparatus in good position. No pneumothorax. Lungs are clear. Salvador Maya MD FACR on January 23, 2018 at 11:47 Board Certified Radiologist. This report was verified electronically.
[2018-01-23] MEDS: NOREPINEPHRINE-DEXTROSE DRIP 250 ML IV PRN (12:00)
[2018-01-23] MEDS ORDERED: PHENYLEPHRINE INJ 40 MG in DEXTROSE 5% IN WATE 500 ML INJ 496 ML IV PRN ×2 (12:45)
[2018-01-23] MEDS ORDERED: MISCELLANEOUS NURSING INFORMATION XX SCH (13:00)
[2018-01-23] MEDS ORDERED: DEXTROSE 50% IN WATER 50 ML VIAL(D50) IV PUSH PRN (13:00)
[2018-01-23] MEDS: fentaNYL DRIP 250 ML IV PRN (13:00)
[2018-01-23] MEDS ORDERED: CHLORHEXIDINE GLUCONATE 2 % 1 PACK (2 CLOTHS) TOP PRN (13:00)
[2018-01-23] MEDS ORDERED: Vancomycin Consult Pharmacy 1 EA OTHER SCH (13:00)
[2018-01-23] MEDS ORDERED: GLUCAGON 1 MG/ML VIAL OTHER PRN (13:00)
[2018-01-23] MEDS: FAMOTIDINE 20 MG/2 ML VIAL IV PUSH SCH ×2 (13:52→20:26)
[2018-01-23] MEDS: INSULIN NovoLIN REGULAR SUPPLEMENTAL SCALE SQ SCH ×3 (14:00→21:05)
[2018-01-23] MEDS: RESP: ALBUTEROL 2.5 MG/IPRATROPIUM 0.5 MG NEB (SCH) INH ×3 (14:21→20:00)
[2018-01-23] MEDS: SODIUM BICARBONATE 8.4% INJ 150 MEQ in WATER STERILE FOR INJ 850 ML IV SCH ×2 (14:29→14:37)
[2018-01-23] MEDS ORDERED: AZTREONAM INJ 1,000 MG in SODIUM CHLORIDE 0.9% INJ 100 ML IV SCH (15:00)
--- NOTE | 2018-01-23 15:39 | MH ---
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 When EMS arrived, and patient had a GCS, 3 unresponsive. His initial O2 saturation in the 60s, which improved to the 90s on a nonrebreather. Upon arrival, he was tachycardic, confused and was subsequently intubated and placed on full mechanical ventilation. He had a temperature of 100.5 and his laboratory data significant for leukocytosis with a WBC of 20 associated with bandemia. Other significant labs showed acute renal failure with a BUN of 65, creatinine 3.43, and elevated lactic acid level 8.4. His urinalysis was positive for leukocyte esterase, wbc, moderate wbc clumps and occasional bacteria. The patient was given 3 L of crystalloids along with 1 amp of sodium bicarbonate, vancomycin, Flagyl and started on Levophed. When seen in the ER, the patient is sedated with Versed and fentanyl and on full mechanical ventilation. He is scheduled to undergo a CT scan of the brain without contrast and CT abdomen and pelvis. According to the significant other, he had a PET scan as an outpatient on 01/19, which showed diffuse hypermetabolic mediastinal adenopathy compatible with metastatic disease and hypermetabolic bilateral supraclavicular adenopathy and findings suggestive of bone mets. Right IJ central line and left arterial line were placed by ED. His lactic acid improved to 3.5 from 8.4 after fluid resuscitation. ABG post-intubation showed a pH of 7.06, CO2 of 47, PaO2 of 451, bicarbonate 13, saturation 98% on assist and full ventilation with a rate of 14, tidal volume 500, PEEP of 5, 100% FIO2. PAST MEDICAL HISTORY: Significant for coronary artery disease with previous [place] x 2, hypertension, hyperlipidemia, diabetes mellitus, metastatic disease. PAST SURGICAL HISTORY: Previous cardiac catheterization with stent placement, previous hernia repair, previous appendectomy. FAMILY HISTORY: Not contributing to present illness. SOCIAL HISTORY: Ex-smoker, quit in 2009, occasional drinker. ALLERGIES: PENICILLIN, LORAZEPAM, OXYCODONE. REPORTED MEDICATIONS: Levaquin, Flexeril, Welchol, Benicar, aspirin, Percocet, omeprazole, prednisone. REVIEW OF SYSTEMS: As per HPI. Review of systems unobtainable as the patient is intubated. PHYSICAL EXAMINATION: GENERAL: A 72-year-old male, critically ill, intubated, on full mechanical ventilation and in septic shock. VITAL SIGNS: Temperature 100.5, pulse of 108, blood pressure 108/45 on the arterial line, saturation 97%. Vent setting assist control rate of 16, tidal volume 500, PEEP of 5, FiO2 of 50%. HEENT: Atraumatic, normocephalic. Pupils are equal, round, reactive to light and accommodation. Extraocular muscles intact. Conjunctivae pink. Nonicteric sclerae. Oral mucosa within normal. NECK: Supple. No JVD, adenopathy, thyromegaly. Trachea in the midline. HEART: Tachycardic. Normal S1, S2. No murmurs, rubs or gallops noted. LUNGS: Bilateral equal entry. No rales or wheezing. ABDOMEN: Soft, nontender, positive bowel sounds. EXTREMITIES: No cyanosis, clubbing, edema. NEUROLOGIC: Intubated and sedated. LABORATORY DATA: Sodium 137, potassium 5.4, chloride 103, CO2 is 13.8, BUN 65, creatinine 3.43, glucose 230. AST 140, ALT 21, total bilirubin 0.7, alkaline phosphatase 1207, ammonia 43. Troponin less than 0.02. Total CK 143, albumin 1.7. TSH is 0.38. WBC 20, hemoglobin 8.9, hematocrit 29, platelet count 507. INR 1.2, PT 12.2, PTT 28. Urine drug screen positive for opiates. Urinalysis positive for leukocyte esterase, 53 wbc, moderate wbc clumps, occasional bacteria. RADIOGRAPHIC STUDIES: Chest x-ray showed no acute cardiopulmonary disease. ET tube above the bárbara. CT brain, abdomen and pelvis pending. IMPRESSION: 1. Acute respiratory failure requiring intubation and mechanical ventilation. 2. Altered mental status. 3. Acute kidney injury. 4. Anion gap metabolic acidosis. 5. Lactic acidemia. 6. Hyperglycemia with underlying history of diabetes mellitus. 7. Elevated AST and alkaline phosphatase. 8. Leukocytosis with bandemia. 9. Anemia. 10. Urinary tract infection. 11. Septic shock. 12. Metastatic lung disease. 13. History of coronary artery disease. 14. History of hypertension. 15. History of diabetes mellitus and hyperlipidemia. RECOMMENDATIONS: 1. Monitor neuro status closely. The patient was placed on fentanyl and Versed drip in the ER for sedation and vent synchrony. Daily sedation vacation when clinically appropriate. 2. Follow up on CT scan of the brain. Urine drug screen was positive for opiates. 3. Continue with vent support and maintain sats above 92%. 4. Bronchodilators in the form of DuoNeb q. 6, and will initiate ICU vent bundle. Increase respiratory rate to 18. Start stress dose steroids, hydrocortisone 50 mg IV q. 6. Of note, patient is on prednisone 5 mg daily at home. 5. Continue with Levophed. Maintain MAP greater than 65 mmHg. He was given 3 L of crystalloid in the ED. Will place on a bicarbonate drip. Lactic acid reduced from 8.4 to 3.5 with fluid resuscitation. The patient was seen by Dr. Bundy from cardiology on the previous admission. 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 6. Monitor renal function, I's and O's and avoid nephrotoxins. Follow up on CT scan of the abdomen and pelvis. Consult nephrology service and will place on sterile water with 3 amps of bicarbonate at 150 mL an hour. Repeat BMP. 7. Keep n.p.o. for now. Place on Pepcid for GI prophylaxis. Monitor LFTs. 8. Continue with broad spectrum antibiotics in the form of vancomycin and aztreonam. Of note, the patient is ALLERGIC TO PENICILLIN. Follow up on blood and urine cultures. A chest x-ray in the ED showed no evidence of any acute cardiopulmonary disease. We will consult ID service. 9. Monitor CBC and coags and consult oncology service. The patient had a PET scan as an outpatient on 01/19, which showed findings suggestive of metastatic disease and bone mets. 10. Place on sliding scale insulin with Accu-Cheks for glycemic control. 11. GI prophylaxis with Pepcid 10 mg q. 12 and DVT prophylaxis with SCDs for now. Start chemical DVT prophylaxis if CT scan of brain negative for acute process. Right IJ central line and left arterial radial line placed by. 12. The patient is critically ill with septic shock, respiratory failure, renal failure, multiorgan injury and with likely stage IV metastatic disease. Discussed with patient's healthcare surrogate Britt Mercedes and she requested to make patient Alternative code. She does not want any CPR /cardiac resuscitation in event of cardiopulmonary arrest. Conversation was witnessed by charge nurse Chrsi Soni. Critical care time 60 minutes, excluding procedures. MD ASHLEY Up/JURGEN , 02:52 PM , 03:38 PM MTDElaine
--- NOTE | 2018-01-23 15:56 | EKG ---
Date Performed: 01/23/2018 Time Performed: 10:14:51 PTAGE: 72 years EKG: Sinus tachycardia ABNORMAL ECG Since PREVIOUS TRACING , no significant change noted PREVIOUS TRACIN01/12/2018 14.33.22 DOCTOR: Latanya Amin Interpretating Date/Time 01/23/2018 15:58:12
[2018-01-23] MEDS ORDERED: VANCOMYCIN 500 MG/NS 100 ML IV ONE ×2 (16:00)
--- NOTE | 2018-01-23 16:01 | RADRPT ---
EXAM DATE/TIME: 01/23/2018 15:23 [facility] COMPARISON: CT BRAIN W/O CONTRAST, January 11, 2018, 20:32. INDICATIONS : Found unresponsive, altered mental status. RADIATION DOSE: 46.64 CTDIvol (mGy) MEDICAL HISTORY : Cardiovascular disease. Hypertension. New diagnosis lung ca, renal failure,H Hernia SURGICAL HISTORY : Abdominal aortic aneurysm repair. Appendectomy. ENCOUNTER: Initial ACUITY: 1 day PAIN SCALE: Non-responsive LOCATION: cranial TECHNIQUE: Multiple contiguous axial images were obtained of the head. Using automated exposure control and adj ustment of the mA and/or kV according to patient size, radiation dose was kept as low as reasonably a chievable to obtain optimal diagnostic quality images. DICOM format image data is available electro nically for review and comparison. FINDINGS: CEREBRUM: The ventricles are normal for age. No evidence of midline shift, mass lesion, hemorrhage or acute in farction. No extra-axial fluid collections are seen. POSTERIOR FOSSA: The cerebellum and brainstem are intact. The 4th ventricle is midline. The cerebellopontine angle i s unremarkable. EXTRACRANIAL: The visualized portion of the orbits is intact. SKULL: The calvaria is intact. No evidence of skull fracture. CONCLUSION: Normal examination. Matthew Hernandez MD on January 23, 2018 at 15:58 Board Certified Radiologist. This report was verified electronically.
--- NOTE | 2018-01-23 16:12 | RADRPT ---
EXAM DATE/TIME: 01/23/2018 15:30 [facility] COMPARISON: No previous studies available for comparison. INDICATIONS : Lung ca, found unresponsive. RADIATION DOSE: 19.28 CTDIvol (mGy) ; Combined studies - Thorax/Abdomen/Pelvis MEDICAL HISTORY : Cardiovascular disease. Hypertension. Carcinoma, lung. H hernia, renal failure SURGICAL HISTORY : Abdominal aortic aneurysm repair. Appendectomy. ENCOUNTER: Initial ACUITY: 1 day PAIN SCALE: Non-responsive LOCATION: chest TECHNIQUE: Volumetric scanning of the chest was performed. Using automated exposure control and adjustment of t he mA and/or kV according to patient size, radiation dose was kept as low as reasonably achievable to obtain optimal diagnostic quality images. DICOM format image data is available electronically for r eview and comparison. Follow-up recommendations for detected pulmonary nodules are based at a minimum on nodule size and pa tient risk factors according to Fleischner Society Guidelines. FINDINGS: LUNGS: There is a medial right retrohilar mass noted. The mass measures a lobar 3 cm. There is some adjacent satellite nodularity. There is minimal basilar atelectasis bilaterally. PLEURAE: Minimal pleural fluid bilaterally. MEDIASTINUM: Mild central mediastinal tim prominence, most as previously in the right paratracheal region. Coron neha calcifications noted. Central line descends in the SVC. Nasogastric tube coils in the stomach. In the trachea tube in good position. AXILLAE: Within normal limits. No lymphadenopathy. MUSCULOSKELETAL: Widespread heterogeneity 2 bony densities suggesting widespread metastatic disease. MISCELLANEOUS: The visualized upper abdominal organs demonstrate no acute abnormality. CONCLUSION: Right lung mass. Bony metastases. Matthew Hernandez MD on January 23, 2018 at 16:05 Board Certified Radiologist. This report was verified electronically.
--- NOTE | 2018-01-23 16:54 | RADRPT ---
EXAM DATE/TIME: 01/23/2018 15:30 [facility] COMPARISON: CT ABDOMEN & PELVIS W/O CONTRAST, January 09, 2018, 7:37. INDICATIONS : Lung ca, found unresponsive. ORAL CONTRAST: No oral contrast ingested. RADIATION DOSE: 25.56 CTDIvol (mGy) MEDICAL HISTORY : Carcinoma, lung. Cardiovascular disease Hypertension.Renal failure, ca lung SURGICAL HISTORY : Abdominal aortic aneurysm repair. Appendectomy. ENCOUNTER: Initial ACUITY: 1 day PAIN SCALE: Non-responsive LOCATION: chest TECHNIQUE: Volumetric scanning of the abdomen and pelvis was performed. Using automated exposure control and ad justment of the mA and/or kV according to patient size, radiation dose was kept as low as reasonably achievable to obtain optimal diagnostic quality images. DICOM format image data is available electro nically for review and comparison. FINDINGS: LIVER: Homogeneous density without lesion. There is no dilation of the biliary tree. No calcified gallston es. SPLEEN: Normal size without lesion. PANCREAS: Within normal limits. KIDNEYS: Left ureteral stent in place. No evidence of hydronephrosis. Tiny exophytic upper pole lateral left r enal cyst ADRENAL GLANDS: Within normal limits. VASCULAR: Penetrating ulceration and mild aneurysmal dilatation of the upper abdominal aorta which appears stab le. Patchy intimal calcifications involving aorta and branch vessels. BOWEL/MESENTERY: Distal colonic diverticulosis. No abnormal dilatation, wall thickening or focal inflammatory changes. ABDOMINAL WALL: Within normal limits. RETROPERITONEUM: There is no lymphadenopathy. BLADDER: Briseno catheter in place. Left renal stent seen. REPRODUCTIVE: Within normal limits. INGUINAL: There is no lymphadenopathy or hernia. MUSCULOSKELETAL: Widespread bony metastatic disease. CONCLUSION: Stable CT appearance of the abdomen and pelvis with no new acute findings. Matthew Hernandez MD on January 23, 2018 at 16:34 Board Certified Radiologist. This report was verified electronically.
[2018-01-23 17:22] LABS: CALCIUM 7.1 MG/DL (8.5-10.1); CREATININE 1.7 MG/DL (0.60-1.30)
[2018-01-23 17:37] LABS: CALCIUM-PROTEIN CORRECTED 7.9 MG/DL (8.5-10.1); TOTAL PROTEIN 5.5 GM/DL (6.4-8.2)
[2018-01-23] MEDS ORDERED: CHLORHEXIDINE GLUCONATE 2 % 1 PACK (2 CLOTHS)(extra cloths) TOPICAL PRN (18:00)
[2018-01-23] MEDS ORDERED: INSULIN HUMAN REGULAR 1,000 UNITS/10 ML VIAL IV PUSH ONE (18:00)
[2018-01-23] MEDS ORDERED: SODIUM POLYSTYRENE SULFONATE SUSP 15 GM/60 ML CUP PO ONE (18:00)
[2018-01-23] MEDS ORDERED: DEXTROSE 50% IN WATER 50 ML SYRINGE IV PUSH ONE (18:00)
[2018-01-23] MEDS: HYDROCORTISONE SOD SUCCINATE 100 MG VIAL IV PUSH SCH ×2 (18:21→22:32)
--- NOTE | 2018-01-23 18:23 | PD.ID.CON ---
History of Present Illness Service ID Consult Requested By Dr Olivares Reason for Consult sepsis Primary Care Physician Unknown Diagnoses: History of Present Illness Pt is sedated intubated on mech vent'n Unable to provide history He was recently diagnosed with R lung tumor during a w/u of ongoing ,malasie and decline that per his s/o stated since Thanksgiving He also was recently admitted and treated with abx for UTI Pt has a h/o obstructive uropahty 2/2 kidney stone, sp ureter stent placement Pt developped gradually worsening weakness and today pt's s /o found him unresponsive in bed and she called 911 On presentation hypotensive, in ARF, resp failure, with severe lactic acidosis with lactic acid of 8.4 UA abnormal, with pyuria as well as febrile with leukocytosis of 20 K Pt was admitted , started on broad spectrum abx CT abd/pel/chest confirmed R hilar mass and extensive metastatic disease CT head normal Pt is on pressiors He is DNR/DNI, palliative ccare was consulted Review of Systems ROS Limitations: Clinical Condition, Intubated, Altered Mental Status, Unresponsive Past Family Social History Allergies: Coded Allergies: Penicillins (Verified Allergy, Mild, Rash, 01/23/18) acetaminophen (Verified Adverse Reaction, Unknown, Confusion, 01/23/18) lorazepam (Verified Adverse Reaction, Unknown, Confusion, 01/23/18) oxycodone (Verified Adverse Reaction, Unknown, Confusion, 01/23/18) Past Medical History Significant for coronary artery disease with previous [place] x 2, hypertension, hyperlipidemia, diabetes mellitus, metastatic disease. Past Surgical History Previous cardiac catheterization with stent placement, previous hernia repair, previous appendectomy. Active Ordered Medications Medications where reviewed in EMR Antibiotics Include: azactam vanco flagyl - stopped Family History Not contributing to present illness. Social History Ex-smoker, quit in 2009, occasional drinker. no drugs lives with s/o Physical Exam Vital Signs Vital Signs Date Time Temp Pulse Resp B/P (MAP) Pulse Ox O2 Delivery O2 Flow Rate FiO2 01/23/18 17:00 85 18 118/49 (72) 100 109/55 (73) 01/23/18 16:01 97.8 93 20 122/47 (72) 98 113/55 (74) 01/23/18 16:00 92 18 132/67 (88) 99 Ventilator 01/23/18 16:00 93 23 126/49 (74) 98 01/23/18 15:52 101 38 143/46 (78) 137/64 (88) 01/23/18 14:29 50 01/23/18 14:17 97 40 01/23/18 14:02 108 16 110/46 (67) 98 Ventilator 50 01/23/18 13:55 108 16 111/45 (67) 98 Ventilator 50 01/23/18 13:15 128 16 94/43 (60) 100 Ventilator 50 01/23/18 12:54 142 16 110/47 (68) 100 Ventilator 50 01/23/18 12:01 140 105/42 01/23/18 12:00 120 103/46 01/23/18 11:52 112 16 112/46 (68) 100 Ventilator 50 01/23/18 11:18 110 80/31 (47) Automatic Cuff 01/23/18 11:12 107 50/23 (32) 100 01/23/18 11:10 107 53/25 (34) 100 Ventilator 01/23/18 10:51 110 58/34 (42) 01/23/18 10:38 123 23 89/52 (64) 100 Ventilator 100 01/23/18 10:28 122 24 111/51 (71) 99 Ventilator 01/23/18 10:15 100 100 01/23/18 10:13 121 109/58 (75) 98 Ventilator 01/23/18 09:55 100.5 138 97 Physical Exam CONSTITUTIONAL/GENERAL: This is an adequately nourished patient, in no apparent distress. TUBES/LINES/DRAINS: SKIN: No jaundice, rashes, or lesions. Skin temperature appropriate. Not diaphoretic. HEAD: Atraumatic. Normocephalic. EYES: Pupils equal and round and reactive. Extraocular motions intact. No scleral icterus. No injection or drainage. Fundi not examined. ENT: Hearing not tested . Nose without bleeding or purulent drainage. Throat without visible erythema, exudates, masses, or lesions. Orally intubated NECK: Trachea midline. Supple, nontender. No palpable thyroid enlargement or nodularity. CARDIOVASCULAR: Regular rate and rhythm without murmurs, gallops, or rubs. No JVD. Peripheral pulses symmetric. RESPIRATORY/CHEST: Symmetric, unlabored respirations. Clear to auscultation. Breath sounds equal bilaterally. No wheezes, rales, or rhonchi. GASTROINTESTINAL: Abdomen soft, non-tender, nondistended. No hepato-splenomegaly , or palpable masses. No guarding. Bowel sounds present. GENITOURINARY: Without palpable bladder distension. Briseno catheter in place with yellow fairly clear urine MUSCULOSKELETAL: Extremities without clubbing, cyanosis, or edema. No joint tenderness or effusion noted. No calf tenderness. No mottling or clubbing. LYMPHATICS: No palpable cervical or supraclavicular adenopathy. NEUROLOGICAL: sedated,. unresponsive PSYCHIATRIC: unable to assess Laboratory Laboratory Tests Test 01/23/18 10:20 01/23/18 11:11 01/23/18 13:35 01/23/18 16:35 White Blood Count 20.2 Red Blood Count 3.24 Hemoglobin 8.9 Hematocrit 29.0 Mean Corpuscular Volume 89.3 Mean Corpuscular Hemoglobin 27.3 Mean Corpuscular Hemoglobin Concent 30.6 Red Cell Distribution Width 15.9 Platelet Count 507 Mean Platelet Volume 8.6 Neutrophils (%) (Auto) 65.2 Lymphocytes (%) (Auto) 27.7 Monocytes (%) (Auto) 6.1 Eosinophils (%) (Auto) 0.3 Basophils (%) (Auto) 0.7 Neutrophils # (Auto) 13.1 Lymphocytes # (Auto) 5.6 Monocytes # (Auto) 1.2 Eosinophils # (Auto) 0.1 Basophils # (Auto) 0.1 CBC Comment AUTO DIFF Differential Total Cells Counted 100 Neutrophils % (Manual) 53 Band Neutrophils % 10 Lymphocytes % 26 Monocytes % 4 Neutrophils # (Manual) 13.9 Metamyelocytes 3 Myelocytes 3 Nucleated Red Blood Cells 1 Differential Comment FINAL DIFF MANUAL Plasma Cells 1 Platelet Estimate HIGH Platelet Morphology Comment NORMAL Ovalocytes 1+ Prothrombin Time 12.2 Prothromb Time International Ratio 1.2 Activated Partial Thromboplast Time 28.1 Urine Color YELLOW Urine Turbidity CLOUDY Urine pH 5.0 Urine Specific [place] 1.023 Urine Protein 100 Urine Glucose (UA) NEG Urine Ketones NEG Urine Occult Blood LARGE Urine Nitrite NEG Urine Bilirubin NEG Urine Urobilinogen LESS THAN 2.0 Urine Leukocyte Esterase LARGE Urine RBC Urine WBC 53 Urine WBC Clumps MOD Urine Amorphous Sediment MANY Urine Bacteria OCC Urine Hyaline Casts 13 Urine Mucus FEW Microscopic Urinalysis Comment CATH-CULTURE IND Blood Urea Nitrogen 65 Creatinine 3.43 Random Glucose 230 Total Protein 6.5 Albumin 1.7 Calcium Level 8.0 Alkaline Phosphatase 1207 Aspartate Amino Transf (AST/SGOT) 140 Alanine Aminotransferase (ALT/SGPT) 21 Total Bilirubin 0.7 Sodium Level 137 Potassium Level 5.4 Chloride Level 103 Carbon Dioxide Level 13.8 Anion Gap 20 Estimat Glomerular Filtration Rate 18 Lactic Acid Level 8.4 3.5 Ammonia 43 Total Creatine Kinase 143 Troponin I LESS THAN 0.02 Thyroid Stimulating Hormone 3rd Gen 0.389 Urine Opiates Screen POS Urine Barbiturates Screen NEG Urine Amphetamines Screen NEG Urine Benzodiazepines Screen NEG Urine Cocaine Screen NEG Urine Cannabinoids Screen NEG Ethyl Alcohol Level LESS THAN 3 Blood Gas Puncture Site ART LINE ART LINE Blood Gas Patient Temperature 98.6 98.6 Blood Gas HCO3 13 24 Blood Gas Base Excess -15.5 -0.8 Blood Gas Oxygen Saturation 98 97 Arterial Blood pH 7.06 7.37 Arterial Blood Partial Pressure CO2 47 43 Arterial Blood Partial Pressure O2 451 167 Arterial Blood Oxygen Content 11.6 13.6 Arterial Blood Carboxyhemoglobin 0.6 0.7 Arterial Blood Methemoglobin 0.7 1.3 Blood Gas Hemoglobin 7.5 9.7 Oxygen Delivery Device VENTILATOR VENTILATOR Blood Gas Ventilator Setting 14/500/+5/100 500/18/5PEEP Blood Gas Inspired Oxygen 100 40 Test 01/23/18 16:40 Blood Urea Nitrogen 52 Creatinine 1.70 Random Glucose 299 Total Protein 5.5 Calcium Level 7.1 Sodium Level 140 Potassium Level 5.7 Chloride Level 108 Carbon Dioxide Level 25.0 Anion Gap 7 Estimat Glomerular Filtration Rate 40 Protein Corrected Calcium 7.9 Date/Time Source Procedure Growth Status 01/23/18 10:20 Blood Peripheral Aerobic Blood Culture Pending Received 01/23/18 10:20 Blood Peripheral Anaerobic Blood Culture Pending Received 01/23/18 10:20 Urine Clean Catch Urine Culture Pending Received Result Diagram: 01/23/18 1020 01/23/18 1640 Imaging Last Impressions Head CT 01/23/18 1012 Signed Impressions: Service Date/Time: Tuesday, January 23, 2018 15:23 - CONCLUSION: Normal examination. Matthew Hernandez MD Chest X-Ray 01/23/18 1012 Signed Impressions: Service Date/Time: Tuesday, January 23, 2018 10:17 - CONCLUSION: ET in good position. Nasogastric tube could be advanced. Salvador Maya MD FACR Chest CT 01/23/18 0000 Signed Impressions: Service Date/Time: Tuesday, January 23, 2018 15:30 - CONCLUSION: Right lung mass. Bony metastases. Matthew Hernandez MD Abdomen/Pelvis CT 01/23/18 0000 Signed Impressions: Service Date/Time: Tuesday, January 23, 2018 15:30 - CONCLUSION: Stable CT appearance of the abdomen and pelvis with no new acute findings. Matthew Hernandez MD Assessment and Plan Assessment and Plan Severe sepsis, hypotensive - source is probably ARF Acute VDRF Newly diagnosed wildly metastatic lung ca - DNR/DNI/palliative cont vancomyicin will add meropenem (severe sepsis and @ elevated risk to be exposed to MDROs) Micafungin dc azactam Discussed Condition With s/o @ b/s Dr Elise Moore,Ruby Kessler MD Jan 23, 2018 18:23
[2018-01-23] MEDS ORDERED: ASP: Documented allergy to Penicillins or Cephalosporins PRN (19:00)
[2018-01-23] MEDS ORDERED: ASP: ID consult, note reason in consult order PRN (19:00)
[2018-01-23] MEDS ORDERED: MISCELLANEOUS PHARMACY INFORMATION XX PRN (19:00)
[2018-01-23] MEDS ORDERED: CALCIUM GLUCONATE INJ 1 GM in SODIUM CHLORIDE 0.9% INJ 100 ML IV ONE (20:00)
[2018-01-23] MEDS: SODIUM CHLOR 0.45% 1000 ML INJ 1,000 ML IV SCH (20:00)
[2018-01-23 20:05] LABS: BICARBONATE 27.2 MEQ/L (21.0-32.0); CALCIUM 7.1 MG/DL (8.5-10.1); CREATININE 1.43 MG/DL (0.60-1.30)
--- NOTE | 2018-01-23 20:11 | PD.CONS ---
HPI Service Nephrology Consult Requested By Reason for Consult DILLON, acidosis, hyperkalemia Primary Care Physician Unknown History of Present Illness This is a 72 year old male recently diagnosed with metastatic lung cancer. He became progressively weak, was unable to ambulate and became unresponsive at home. His called the ambulance and he was brought here. He is now intubated , sedated. Patient was found to be in acute renal failure, with lactic acidosis on arrival. He was profoundly hypotensive, received fluid resuscitation and now on pressors. He is currently receiving bicarbonate drip. Briseno has been placed , and he has a brisk urine output : about 1400 ml in the bag. His renal function has improved, but hyperkalemia persists. History was obtained from patient's . He was recently admitted to this hospital. About 2 weeks ago underwent left ureteral stent. He was supposed to have lithotripsy, but developed other complications, including diagnosis of metastatic cancer. He has lost about 50 lbs in 1 month. Review of Systems ROS Limitations: Intubated Past Family Social History Allergies: Coded Allergies: Penicillins (Verified Allergy, Mild, Rash, 01/23/18) acetaminophen (Verified Adverse Reaction, Unknown, Confusion, 01/23/18) lorazepam (Verified Adverse Reaction, Unknown, Confusion, 01/23/18) oxycodone (Verified Adverse Reaction, Unknown, Confusion, 01/23/18) Past Medical History Hypertension Hyperlipidemia Diabetes mellitus COPD CAD status post DC 2 Metastatic lung cancer. Kidney stone Past Surgical History Appendectomy Hernia repair Cardiac catheterization with stent placement Left ureteral stent placement. Reported Medications Prednisone 5 Mg Tab 5 Mg PO DAILY Metoprolol Succinate ER 24 HR (Metoprolol Succinate) 25 Mg Tab 50 Mg PO DAILY Percocet (Oxycodone-Acetaminophen) 10-325 mg Tab 1 Tab PO Q6H PRN Reported Ativan (Lorazepam) 1 Mg Tab 1 Mg PO TID PRN Levofloxacin 500 Mg Tablet 500 Mg PO DAILY Omeprazole 40 Mg Cap 40 Mg DAILY Flexeril (Cyclobenzaprine HCl) 10 Mg Tab 10 Mg PO TID PRN Nitrostat SL (Nitroglycerin) 0.4 Mg Subl 0.4 Mg SL DIRECTED PRN 1 tablet under the tongue as needed for chest pain. Repeat every 5 minutes for a total of 3 DOSES or call 911 if NO relief. Meloxicam 15 Mg Tab 15 Mg PO DAILY Fluticasone Nasal [place] 50 Mcg/Act Naspr 50 Mcg EACH NARE BID 50 mcg/spray Aspirin Low Dose (Aspirin) 81 Mg Chew 81 Mg CHEW DAILY Mupirocin Topical (Mupirocin) 2 % Oint 1 Applic TOPICAL TID Tamsulosin (Tamsulosin HCl) 0.4 Mg Cap 0.4 Mg HS Jardiance (Empagliflozin) 10 Mg Tab 10 Mg PO DAILY Benicar (Olmesartan) 20 Mg Tab 20 Mg PO DAILY Welchol (Colesevelam HCl) 625 Mg Tab 1,875 Mg PO BID Metoprolol Succinate ER 24 HR (Metoprolol Succinate) 25 Mg Tab 25 Mg PO DAILY Rosuvastatin (Rosuvastatin Calcium) 20 Mg Tab 20 Mg PO DAILY Active Ordered Medications Current Medications Medications (Trade) Dose Ordered Sig/Stacey Route Start Time Stop Time Status Last Admin (NS Flush) 2 ml UNSCH PRN IV FLUSH 01/23/18 10:15 Norepinephrine Bitartrate 250 ml @ 7.5 mls/hr TITRATE PRN IV 01/23/18 11:30 01/23/18 12:00 Midazolam HCl 100 ml @ 2 mls/hr TITRATE PRN IV 01/23/18 11:30 Fentanyl Citrate 250 ml @ 5 mls/hr TITRATE PRN IV 01/23/18 11:30 01/23/18 13:00 Phenylephrine HCl 40 mg/Dextrose 500 ml @ 30 mls/hr TITRATE PRN IV 01/23/18 12:45 (Brethine Inj) 1 mg UNSCH PRN SQ 01/23/18 12:45 (Pepcid Inj) 10 mg Q12HR IV PUSH 01/23/18 13:15 01/23/18 13:52 (Duoneb Neb) 1 ampule Q6HR NEB INH 01/23/18 13:00 01/23/18 14:21 Miscellaneous Information 1 Q361D XX 01/23/18 13:00 (Chlorhexidine 2% Cloth) 3 pack Taper DAILY@04 TOP 01/24/18 04:00 01/20/19 03:59 (Chlorhexidine 2% Cloth) 3 pack UNSCH PRN TOP 01/23/18 13:00 (D50w (Vial) Inj) 50 ml UNSCH PRN IV PUSH 01/23/18 13:00 (Glucagon Inj) 1 mg UNSCH PRN OTHER 01/23/18 13:00 (NovoLIN R SUPPLEMENTAL SCALE) 1 Q4H SQ 01/23/18 14:00 01/23/18 18:37 Sodium Bicarbonate 150 meq/Sterile Water 1,000 ml @ 150 mls/hr Q6H40M IV 01/23/18 14:00 01/23/18 14:37 Pharmacy Profile Note 0 ml @ 0 mls/hr UNSCH OTHER 01/23/18 13:00 (SoluCORTEF INJ) 50 mg Q6HR IV PUSH 01/23/18 14:45 01/23/18 18:21 Calcium Gluconate 1 gm/Sodium Chloride 110 ml @ 110 mls/hr ONCE ONCE IV 01/23/18 20:00 01/23/18 20:59 Miscellaneous Information Patient in critical care unit? Ass... Q361D .XX 01/23/18 18:00 01/23/18 18:00 (Chlorhexidine 2% Cloth) 3 pack DAILY@04 TOPICAL 01/24/18 04:00 01/28/18 04:01 (Chlorhexidine 2% Cloth) 3 pack UNSCH PRN TOPICAL 01/23/18 18:00 01/28/18 17:53 (ASP Crit: Doc allergy to Penicillin/ Cephalosp) 1 UNSCH X1 PRN .XX 01/23/18 19:00 01/24/18 18:59 (ASP Crit: Infectious disease consult) 1 UNSCH X1 PRN .XX 01/23/18 19:00 01/24/18 18:59 ([facility] Information) 1 UNSCH X1 PRN XX 01/23/18 19:00 01/24/18 18:59 Meropenem 1000 mg/ Sodium Chloride 100 ml @ 200 mls/hr Q12H IV 01/23/18 20:00 Micafungin Sodium 150 mg/Sodium Chloride 100 ml @ 100 mls/hr Q24H IV 01/23/18 21:00 Family History non contributory Social History . Former smoker. Physical Exam Vital Signs Vital Signs Date Time Temp Pulse Resp B/P (MAP) Pulse Ox O2 Delivery O2 Flow Rate FiO2 01/23/18 19:00 84 19 91/52 (65) 100 105/57 (73) 01/23/18 18:00 83 01/23/18 18:00 83 18 113/47 (69) 100 103/56 (72) 01/23/18 17:00 85 18 118/49 (72) 100 109/55 (73) 01/23/18 16:01 97.8 93 20 122/47 (72) 98 113/55 (74) 01/23/18 16:00 92 18 132/67 (88) 99 Ventilator 01/23/18 16:00 93 23 126/49 (74) 98 01/23/18 16:00 40 01/23/18 15:52 101 38 143/46 (78) 137/64 (88) 01/23/18 14:29 50 01/23/18 14:17 97 40 01/23/18 14:02 108 16 110/46 (67) 98 Ventilator 50 01/23/18 13:55 108 16 111/45 (67) 98 Ventilator 50 01/23/18 13:15 128 16 94/43 (60) 100 Ventilator 50 01/23/18 12:54 142 16 110/47 (68) 100 Ventilator 50 01/23/18 12:01 140 105/42 01/23/18 12:00 120 103/46 01/23/18 11:52 112 16 112/46 (68) 100 Ventilator 50 01/23/18 11:18 110 80/31 (47) Automatic Cuff 01/23/18 11:12 107 50/23 (32) 100 01/23/18 11:10 107 53/25 (34) 100 Ventilator 01/23/18 10:51 110 58/34 (42) 01/23/18 10:38 123 23 89/52 (64) 100 Ventilator 100 01/23/18 10:28 122 24 111/51 (71) 99 Ventilator 01/23/18 10:15 100 100 01/23/18 10:13 121 109/58 (75) 98 Ventilator 01/23/18 09:55 100.5 138 97 Physical Exam GENERAL: intubated, sedated. SKIN: Warm and dry. HEAD: Normocephalic. EYES: No scleral icterus. No injection or drainage. NECK: Supple, trachea midline. No JVD or lymphadenopathy. CARDIOVASCULAR: Regular rate and rhythm without murmurs, gallops, or rubs. RESPIRATORY: Breath sounds equal bilaterally.Vented breath sounds. GASTROINTESTINAL: Abdomen soft, nondistended. MUSCULOSKELETAL: No cyanosis, or edema. BACK: Nontender without obvious deformity. No CVA tenderness. Laboratory Laboratory Tests Test 01/23/18 10:20 01/23/18 11:11 01/23/18 13:35 01/23/18 16:35 White Blood Count 20.2 Red Blood Count 3.24 Hemoglobin 8.9 Hematocrit 29.0 Mean Corpuscular Volume 89.3 Mean Corpuscular Hemoglobin 27.3 Mean Corpuscular Hemoglobin Concent 30.6 Red Cell Distribution Width 15.9 Platelet Count 507 Mean Platelet Volume 8.6 Neutrophils (%) (Auto) 65.2 Lymphocytes (%) (Auto) 27.7 Monocytes (%) (Auto) 6.1 Eosinophils (%) (Auto) 0.3 Basophils (%) (Auto) 0.7 Neutrophils # (Auto) 13.1 Lymphocytes # (Auto) 5.6 Monocytes # (Auto) 1.2 Eosinophils # (Auto) 0.1 Basophils # (Auto) 0.1 CBC Comment AUTO DIFF Differential Total Cells Counted 100 Neutrophils % (Manual) 53 Band Neutrophils % 10 Lymphocytes % 26 Monocytes % 4 Neutrophils # (Manual) 13.9 Metamyelocytes 3 Myelocytes 3 Nucleated Red Blood Cells 1 Differential Comment FINAL DIFF MANUAL Plasma Cells 1 Platelet Estimate HIGH Platelet Morphology Comment NORMAL Ovalocytes 1+ Prothrombin Time 12.2 Prothromb Time International Ratio 1.2 Activated Partial Thromboplast Time 28.1 Urine Color YELLOW Urine Turbidity CLOUDY Urine pH 5.0 Urine Specific [place] 1.023 Urine Protein 100 Urine Glucose (UA) NEG Urine Ketones NEG Urine Occult Blood LARGE Urine Nitrite NEG Urine Bilirubin NEG Urine Urobilinogen LESS THAN 2.0 Urine Leukocyte Esterase LARGE Urine RBC Urine WBC 53 Urine WBC Clumps MOD Urine Amorphous Sediment MANY Urine Bacteria OCC Urine Hyaline Casts 13 Urine Mucus FEW Microscopic Urinalysis Comment CATH-CULTURE IND Blood Urea Nitrogen 65 Creatinine 3.43 Random Glucose 230 Total Protein 6.5 Albumin 1.7 Calcium Level 8.0 Alkaline Phosphatase 1207 Aspartate Amino Transf (AST/SGOT) 140 Alanine Aminotransferase (ALT/SGPT) 21 Total Bilirubin 0.7 Sodium Level 137 Potassium Level 5.4 Chloride Level 103 Carbon Dioxide Level 13.8 Anion Gap 20 Estimat Glomerular Filtration Rate 18 Lactic Acid Level 8.4 3.5 Ammonia 43 Total Creatine Kinase 143 Troponin I LESS THAN 0.02 Thyroid Stimulating Hormone 3rd Gen 0.389 Urine Opiates Screen POS Urine Barbiturates Screen NEG Urine Amphetamines Screen NEG Urine Benzodiazepines Screen NEG Urine Cocaine Screen NEG Urine Cannabinoids Screen NEG Ethyl Alcohol Level LESS THAN 3 Blood Gas Puncture Site ART LINE ART LINE Blood Gas Patient Temperature 98.6 98.6 Blood Gas HCO3 13 24 Blood Gas Base Excess -15.5 -0.8 Blood Gas Oxygen Saturation 98 97 Arterial Blood pH 7.06 7.37 Arterial Blood Partial Pressure CO2 47 43 Arterial Blood Partial Pressure O2 451 167 Arterial Blood Oxygen Content 11.6 13.6 Arterial Blood Carboxyhemoglobin 0.6 0.7 Arterial Blood Methemoglobin 0.7 1.3 Blood Gas Hemoglobin 7.5 9.7 Oxygen Delivery Device VENTILATOR VENTILATOR Blood Gas Ventilator Setting 14/500/+5/100 500/18/5PEEP Blood Gas Inspired Oxygen 100 40 Test 01/23/18 16:40 01/23/18 19:00 01/23/18 19:30 Nasal Screen MRSA (PCR) MRSA NOT DETECTED Blood Urea Nitrogen 52 Creatinine 1.70 Random Glucose 299 Total Protein 5.5 Calcium Level 7.1 Sodium Level 140 Potassium Level 5.7 Chloride Level 108 Carbon Dioxide Level 25.0 Anion Gap 7 Estimat Glomerular Filtration Rate 40 Protein Corrected Calcium 7.9 Date/Time Source Procedure Growth Status 01/23/18 10:20 Blood Peripheral Aerobic Blood Culture Pending Received 01/23/18 10:20 Blood Peripheral Anaerobic Blood Culture Pending Received 01/23/18 10:20 Urine Clean Catch Urine Culture Pending Received Result Diagram: 01/23/18 1020 01/23/18 1640 Assessment and Plan Problem List: (1) Acute kidney injury ICD Codes: N17.9 - Acute kidney failure, unspecified Plan: multifactorial. May have had pre-renal azotemia due to intravascular volume depletion and hypotension. His intake was poor for several days. Also developed sepsis: can cause ATN. I also believe urinary retention played a role: in fact this may have been the major cause as urine output is very brisk after placement of Briseno catheter, and renal function is already improving. Finally, patient was on some potential nephrotoxic agents: Meloxicam and Jardiance. These medications should be held. Stop bicarbonate drip. Change IVF to 1/2 NS. (2) Hyperkalemia ICD Codes: E87.5 - Hyperkalemia Plan: Treat with insulin and dextrose. Monitor. (3) Acidosis ICD Codes: E87.2 - Acidosis Plan: patient with lactic acidosis. Improved. Treat infection. Maintain hemodynamic support. No need for bicarbonate drip at this time. (4) UTI (urinary tract infection) ICD Codes: N39.0 - Urinary tract infection, site not specified Plan: Recent ureteral stent placement. Has history of renal stones. ID on the case. On antibiotics. Assessment and Plan Thanks for the consult. Patient's wants him to be DNR. Bandar Rosa MD Jan 23, 2018 20:11
[2018-01-23] MEDS: MEROPENEM INJ 1,000 MG in SODIUM CHLORIDE 0.9% INJ 100 ML IV SCH (20:26)
[2018-01-23 20:34] LABS: CALCIUM-PROTEIN CORRECTED 7.9 MG/DL (8.5-10.1); TOTAL PROTEIN 5.5 GM/DL (6.4-8.2)
[2018-01-23] MEDS ORDERED: MICAFUNGIN INJ 150 MG in SODIUM CHLORIDE 0.9% INJ 100 ML IV SCH (21:00)
[2018-01-24] VITALS (21 sets, daily range): BP systolic 78–151; BP diastolic 53–81; PULSE 65–176; RESP 8–29; TEMP 97.4–98.2; O2SAT 77–100
[2018-01-24] MEDS: INSULIN NovoLIN REGULAR SUPPLEMENTAL SCALE SQ SCH ×4 (02:00→15:09)
[2018-01-24] MEDS ORDERED: MIDAZOLAM HCL 2 MG/2 ML VIAL IV PRN (02:00)
[2018-01-24] MEDS ORDERED: MIDAZOLAM HCL 2 MG/2 ML VIAL IV PUSH PRN (02:30)
[2018-01-24] MEDS: MIDAZOLAM 100 MG/100 ML INJ 100 ML IV PRN ×2 (03:00→11:46)
[2018-01-24] MEDS: RESP: ALBUTEROL 2.5 MG/IPRATROPIUM 0.5 MG NEB (SCH) INH ×3 (03:27→15:31)
[2018-01-24] MEDS ORDERED: CHLORHEXIDINE GLUCONATE 2 % 1 PACK (2 CLOTHS) TOP SCH (04:00)
[2018-01-24] MEDS ORDERED: CHLORHEXIDINE GLUCONATE 2 % 1 PACK (2 CLOTHS)(taper/protocol) TOPICAL SCH (04:00)
[2018-01-24] MEDS: HYDROCORTISONE SOD SUCCINATE 100 MG VIAL IV PUSH SCH ×2 (04:23→11:46)
[2018-01-24] MEDS: NOREPINEPHRINE-DEXTROSE DRIP 250 ML IV PRN ×2 (04:24→13:17)
[2018-01-24] MEDS: fentaNYL DRIP 250 ML IV PRN ×2 (04:25→15:07)
[2018-01-24 05:10] LABS: AUTOMATED NEUTROPHIL # 8.2 TH/MM3 (1.8-7.7); BASOPHIL % 0.1 % (0.0-2.0); EOSINOPHIL % 0.1 % (0.0-4.0); HEMATOCRIT 24.9 % (39.0-51.0); HEMOGLOBIN 8.3 GM/DL (13.0-17.0); LYMPH % 11.8 % (9.0-44.0); LYMPHOCYTE # 1.2 TH/MM3 (1.0-4.8); MEAN CELL VOLUME 84.4 FL (80.0-100.0); MEAN CORPUSCULAR HEMOGLOBIN 28.3 PG (27.0-34.0); MEAN CORPUSCULAR HGB CONC 33.5 % (32.0-36.0); MEAN PLATELET VOLUME 7.9 FL (7.0-11.0); MONO % 4.8 % (0.0-8.0); MONOCYTE # 0.5 TH/MM3 (0-0.9); NEUT % 83.2 % (16.0-70.0); PLATELET COUNT 294 TH/MM3 (150-450); RED BLOOD COUNT 2.95 MIL/MM3 (4.50-5.90); RED CELL DISTRIBUTION WIDTH 15.7 % (11.6-17.2); WHITE BLOOD COUNT 9.8 TH/MM3 (4.0-11.0)
[2018-01-24 05:32] LABS: ALBUMIN 1.5 GM/DL (3.4-5.0); ALKALINE PHOSPHATASE 1326 U/L (45-117); ALT (GPT) 22 U/L (12-78); AST (GOT) 180 U/L (15-37); BICARBONATE 27.5 MEQ/L (21.0-32.0); BLOOD UREA NITROGEN 33 MG/DL (7-18); CALCIUM 8.1 MG/DL (8.5-10.1); CHLORIDE 107 MEQ/L (98-107); CREATININE 0.81 MG/DL (0.60-1.30); GLOMERULAR FILTRATION RATE 94 ML/MIN (>89); GLUCOSE,RANDOM 216 MG/DL (74-106); RANDOM VANCOMYCIN 6.9 COMMENT; SODIUM (NA) 142 MEQ/L (136-145); TOTAL BILIRUBIN ADULT 0.5 MG/DL (0.2-1.0); TOTAL PROTEIN 5.8 GM/DL (6.4-8.2)
[2018-01-24 07:51] LABS: BANDS 5 % (0-6); CORRECTED NUCLEATED RBC 1 /100 WBC (0-0); LYMPHOCYTES 6 % (9-44); METAMYELOCYTES 1 % (0-1); MONOCYTES 1 % (0-8); MYELOCYTES 2 % (0-0); NUCLEATED RED BLOOD CELL 1 (0-0); POLYS (SEG NEUTROPHILS) 84 % (16-70)
--- NOTE | 2018-01-24 07:56 | HHI.NPPN ---
Subjective Interval History Renal function has improved. Hyperkalemia has resolved. We will sign off at this time. Objective Data Data Vital Signs Date Time Temp Pulse Resp B/P (MAP) Pulse Ox O2 Delivery O2 Flow Rate FiO2 01/24/18 07:34 99 35 01/24/18 06:00 87 01/24/18 06:00 87 19 82/70 (74) 99 132/71 (91) 01/24/18 05:00 81 21 94/80 (85) 100 151/78 (102) 01/24/18 04:24 90 108/63 01/24/18 04:01 100 35 01/24/18 04:00 40 01/24/18 04:00 84 01/24/18 04:00 98.2 84 11 91/78 (82) 99 133/70 (91) 01/24/18 03:00 93 18 80/60 (67) 99 100/57 (71) 01/24/18 02:00 72 18 92/81 (85) 100 135/62 (86) 01/24/18 02:00 72 01/24/18 01:00 74 18 85/75 (78) 100 127/67 (87) 01/24/18 00:37 100 35 01/24/18 00:00 40 01/24/18 00:00 75 01/24/18 00:00 97.9 75 18 79/57 (64) 100 121/65 (83) 01/23/18 23:00 76 18 91/82 (85) 100 123/61 (81) 01/23/18 22:00 79 01/23/18 22:00 79 18 87/75 (79) 100 114/62 (79) 01/23/18 21:00 88 19 96/52 (67) 100 107/64 (78) 01/23/18 20:39 97.7 95 30 110/55 (73) 100 01/23/18 20:00 40 01/23/18 20:00 80 01/23/18 19:58 100 35 01/23/18 19:00 84 19 91/52 (65) 100 105/57 (73) 01/23/18 18:00 83 01/23/18 18:00 83 18 113/47 (69) 100 103/56 (72) 01/23/18 17:00 85 18 118/49 (72) 100 109/55 (73) 01/23/18 16:01 97.8 93 20 122/47 (72) 98 113/55 (74) 01/23/18 16:00 92 18 132/67 (88) 99 Ventilator 01/23/18 16:00 93 23 126/49 (74) 98 01/23/18 16:00 40 01/23/18 15:52 101 38 143/46 (78) 137/64 (88) 01/23/18 14:29 50 01/23/18 14:17 97 40 01/23/18 14:02 108 16 110/46 (67) 98 Ventilator 50 01/23/18 13:55 108 16 111/45 (67) 98 Ventilator 50 01/23/18 13:15 128 16 94/43 (60) 100 Ventilator 50 01/23/18 12:54 142 16 110/47 (68) 100 Ventilator 50 01/23/18 12:01 140 105/42 01/23/18 12:00 120 103/46 01/23/18 11:52 112 16 112/46 (68) 100 Ventilator 50 01/23/18 11:18 110 80/31 (47) Automatic Cuff 01/23/18 11:12 107 50/23 (32) 100 01/23/18 11:10 107 53/25 (34) 100 Ventilator 01/23/18 10:51 110 58/34 (42) 01/23/18 10:38 123 23 89/52 (64) 100 Ventilator 100 01/23/18 10:28 122 24 111/51 (71) 99 Ventilator 01/23/18 10:15 100 100 01/23/18 10:13 121 109/58 (75) 98 Ventilator 01/23/18 09:55 100.5 138 97 -: 01/24/18 0420 01/24/18 0420 Microbiology 01/23/18 Aerobic Blood Culture, Received Pending 01/23/18 Anaerobic Blood Culture, Received Pending 01/23/18 Aerobic Blood Culture, Received Pending 01/23/18 Anaerobic Blood Culture, Received Pending 01/23/18 Urine Culture, Received Pending Physical Exam Eyes Eye Exam: Pupils Equal Neck Neck Exam: Neck Supple Pulmonary Resp Exam: Rhonchi Gastrointestinal/Abdomen GI Exam: Soft, Non-Tender Assessment/Plan Problem List: (1) Acute kidney injury ICD Codes: N17.9 - Acute kidney failure, unspecified Plan: multifactorial. May have had pre-renal azotemia due to intravascular volume depletion and hypotension. His intake was poor for several days. I also believe urinary retention played a role: in fact this may have been the major cause as urine output is very brisk after placement of Briseno catheter, and renal function is already improving. Finally, patient was on some potential nephrotoxic agents: Meloxicam and Jardiance. These medications should be held. Taper off fluids. (2) Hyperkalemia ICD Codes: E87.5 - Hyperkalemia Plan: Treat with insulin and dextrose. Monitor. (3) Acidosis ICD Codes: E87.2 - Acidosis Plan: patient with lactic acidosis. Improved. Treat infection. Maintain hemodynamic support. No need for bicarbonate drip at this time. (4) UTI (urinary tract infection) ICD Codes: N39.0 - Urinary tract infection, site not specified Plan: Recent ureteral stent placement. Has history of renal stones. ID on the case. On antibiotics. Plan I will sign off at this time. Thanks. Bandar Rosa MD Jan 24, 2018 07:56
[2018-01-24] MEDS: MEROPENEM INJ 1,000 MG in SODIUM CHLORIDE 0.9% INJ 100 ML IV SCH (08:34)
[2018-01-24] MEDS: FAMOTIDINE 20 MG/2 ML VIAL IV PUSH SCH (08:34)
[2018-01-24] MEDS: SODIUM CHLOR 0.45% 1000 ML INJ 1,000 ML IV SCH (08:39)
--- NOTE | 2018-01-24 09:35 | MB ---
cc: Pascual Jordan MD DATE: 01/23/2018 REASON FOR CONSULTATION: The patient with recent findings of lung mass and metastatic bony disease, who is now being brought to the emergency room with altered mental status. HISTORY OF PRESENT ILLNESS: This is a 72-year-old male who is currently sedated and intubated. He is critically ill. No family members are present. All relevant information obtained from the EMR. This patient was brought to the emergency room via EMS. and unresponsive. He was hypoxic. He was placed on nonrebreather with improvement in his oxygenation. He, however, became very confused and became tachycardic and he was emergently intubated and placed on mechanical ventilation. He also had low grade fevers and a leukocytosis of 20. He was also found to be in acute renal failure with a creatinine of 3.43. His lactic acid was elevated. Urinalysis was positive for leukocyte esterase. The patient received aggressive fluid resuscitation. He was started on antibiotics. He became hypotensive and was started on pressors. Apparently, this patient was found to have metastatic disease in the mediastinum as well as to the bone. Based on the records, he had a PET scan on 01/19, which showed diffuse hypermetabolic mediastinal adenopathy with metastatic disease to the bone as well. REVIEW OF SYSTEMS: completed, due to the patient's mental status. PAST MEDICAL HISTORY: History of lung lesions and metastatic bone lesions, coronary artery disease with a history of [place], hypertension, hyperlipidemia, diabetes. PAST SURGICAL HISTORY: He has had cardiac catheterization with stent placement, hernioplasty, appendectomy. FAMILY HISTORY: Unable to be obtained. SOCIAL HISTORY: Apparently, he is an ex-smoker and quit in 2009. Occasionally drinks alcohol. MEDICATIONS: Micafungin, meropenem, Solu-Cortef 50 mg IV every 6 hours, Pepcid 10 mg every 12 hours, DuoNebs, phenylephrine drops, norepinephrine drops. ALLERGIES: HE IS ALLERGIC TO PENICILLIN, ACETAMINOPHEN, LORAZEPAM AND OXYCODONE. PHYSICAL EXAMINATION: VITAL SIGNS: Blood pressure is 110/55, he is currently on mechanical ventilation, pulse is in the 90s, temperature is 97.7, O2 saturation 100% on FIO2 40, he is intubated. GENERAL: Acutely ill elderly patient. HEENT: Pupils are equal, round, reactive to light. EOMI. ET tube in place. NECK: Supple. CHEST: Has coarse sounds in bilateral lung [place]. CARDIAC: S1, S2, tachycardic in the 90s. ABDOMEN: Soft, nontender, nondistended. Bowel sounds are decreased. EXTREMITIES: Nonedematous. No erythema, cyanosis. NEUROLOGIC: Currently, he is sedated and is on mechanical ventilation. LABORATORY DATA: WBC 20.2, hemoglobin 8.9, platelet count 507. Serum chemistries, sodium 142, potassium 5.1, chloride 108, BUN 26, creatinine 1.43. Lactic acid on admission 8.4. UDS is positive for opiates. Urinalysis shows large occult blood, large leukocyte esterase, occasional urine bacteria, nitrite negative. IMAGIN. CT of the abdomen and pelvis does not show any visceral disease in the abdomen. Widespread bony metastatic disease is visualized. 2. CT of the chest was reviewed and shows a medial right retro-hilar mass, it is approximately 3 cm. There is satellite nodularity. There is widespread bony densities, suggesting widespread metastatic disease. 3. CT of the head was reviewed and it is normal. ASSESSMENT AND PLAN: This is a 72-year-old male who was recently found to have a lung lesion and metastatic disease to the bone. He is now being brought to the emergency room with altered mental status and respiratory failure. He is currently sedated and intubated. 1. Acute respiratory failure due to underlying malignancy, also possibly underlying infection. The patient is currently intubated. He is on broad spectrum antibiotics. He has sepsis. He is hypotensive. He is currently on vasopressors. Further management per critical care team. 2. Metastatic bony disease with lung lesion. This is concerning for bronchogenic carcinoma. He has a history of tobacco abuse. The patient is currently not stable for a biopsy. Eventually, if he clinically improves, we will need to obtain a biopsy of the lung lesion. advanced stage disease, which will not be curative. I will discuss this further with the patient and his family if he clinically improves. 3. Acute renal failure due to sepsis, hypotension. He also has a urinary tract infection. He recently had a urethral stent placement. He has a history of renal stones. 4. Lactic acidosis due to infection and dehydration. Thank you for allowing me to participate in the care of this patient. I will continue to follow this patient along. MD MIKE Ureña/ANTONIO , 12:38 AM , 01:08 AM
--- NOTE | 2018-01-24 10:17 | PD.ONC.PN ---
Subjective Subjective Remarks Afebrile overnight. Patient remains intubated, sedated. Patient's s/o Britt Mercedes is at the bedside. She asks for a palliative care consult and possible compassionate extubation. She states "he never would have wanted all of this. He would have been angry at me for allowing them to intubate him." Objective Data Date Time Temp Pulse Resp B/P (MAP) Pulse Ox O2 Delivery O2 Flow Rate FiO2 01/24/18 07:34 99 35 01/24/18 06:00 87 01/24/18 06:00 87 19 82/70 (74) 99 132/71 (91) 01/24/18 05:00 81 21 94/80 (85) 100 151/78 (102) 01/24/18 04:24 90 108/63 01/24/18 04:01 100 35 01/24/18 04:00 40 01/24/18 04:00 84 01/24/18 04:00 98.2 84 11 91/78 (82) 99 133/70 (91) 01/24/18 03:00 93 18 80/60 (67) 99 100/57 (71) 01/24/18 02:00 72 18 92/81 (85) 100 135/62 (86) 01/24/18 02:00 72 01/24/18 01:00 74 18 85/75 (78) 100 127/67 (87) 01/24/18 00:37 100 35 01/24/18 00:00 40 01/24/18 00:00 75 01/24/18 00:00 97.9 75 18 79/57 (64) 100 121/65 (83) 01/23/18 23:00 76 18 91/82 (85) 100 123/61 (81) 01/23/18 22:00 79 01/23/18 22:00 79 18 87/75 (79) 100 114/62 (79) 01/23/18 21:00 88 19 96/52 (67) 100 107/64 (78) 01/23/18 20:39 97.7 95 30 110/55 (73) 100 01/23/18 20:00 40 01/23/18 20:00 80 01/23/18 19:58 100 35 01/23/18 19:00 84 19 91/52 (65) 100 105/57 (73) 01/23/18 18:00 83 01/23/18 18:00 83 18 113/47 (69) 100 103/56 (72) 01/23/18 17:00 85 18 118/49 (72) 100 109/55 (73) 01/23/18 16:01 97.8 93 20 122/47 (72) 98 113/55 (74) 01/23/18 16:00 92 18 132/67 (88) 99 Ventilator 01/23/18 16:00 93 23 126/49 (74) 98 01/23/18 16:00 40 01/23/18 15:52 101 38 143/46 (78) 137/64 (88) 01/23/18 14:29 50 01/23/18 14:17 97 40 01/23/18 14:02 108 16 110/46 (67) 98 Ventilator 50 01/23/18 13:55 108 16 111/45 (67) 98 Ventilator 50 01/23/18 13:15 128 16 94/43 (60) 100 Ventilator 50 01/23/18 12:54 142 16 110/47 (68) 100 Ventilator 50 01/23/18 12:01 140 105/42 01/23/18 12:00 120 103/46 01/23/18 11:52 112 16 112/46 (68) 100 Ventilator 50 01/23/18 11:18 110 80/31 (47) Automatic Cuff 01/23/18 11:12 107 50/23 (32) 100 01/23/18 11:10 107 53/25 (34) 100 Ventilator 01/23/18 10:51 110 58/34 (42) 01/23/18 10:38 123 23 89/52 (64) 100 Ventilator 100 01/23/18 10:28 122 24 111/51 (71) 99 Ventilator 01/23/18 10:15 100 100 01/23/18 10:13 121 109/58 (75) 98 Ventilator 01/24/18 01/24/18 01/24/18 07:00 15:00 23:00 Intake Total 600 ml Output Total 1600 ml Balance -1000 ml Result Diagram: 01/24/18 0420 01/24/18 0420 Laboratory Results Laboratory Tests Test 01/23/18 10:20 01/23/18 11:11 01/23/18 13:35 01/23/18 16:35 White Blood Count 20.2 TH/MM3 Red Blood Count 3.24 MIL/MM3 Hemoglobin 8.9 GM/DL Hematocrit 29.0 % Mean Corpuscular Volume 89.3 FL Mean Corpuscular Hemoglobin 27.3 PG Mean Corpuscular Hemoglobin Concent 30.6 % Red Cell Distribution Width 15.9 % Platelet Count 507 TH/MM3 Mean Platelet Volume 8.6 FL Neutrophils (%) (Auto) 65.2 % Lymphocytes (%) (Auto) 27.7 % Monocytes (%) (Auto) 6.1 % Eosinophils (%) (Auto) 0.3 % Basophils (%) (Auto) 0.7 % Neutrophils # (Auto) 13.1 TH/MM3 Lymphocytes # (Auto) 5.6 TH/MM3 Monocytes # (Auto) 1.2 TH/MM3 Eosinophils # (Auto) 0.1 TH/MM3 Basophils # (Auto) 0.1 TH/MM3 CBC Comment AUTO DIFF Differential Total Cells Counted 100 Neutrophils % (Manual) 53 % Band Neutrophils % 10 % Lymphocytes % 26 % Monocytes % 4 % Neutrophils # (Manual) 13.9 TH/MM3 Metamyelocytes 3 % Myelocytes 3 % Nucleated Red Blood Cells 1 /100 WBC Differential Comment FINAL DIFF MANUAL Plasma Cells 1 % Platelet Estimate HIGH Platelet Morphology Comment NORMAL Ovalocytes 1+ Prothrombin Time 12.2 SEC Prothromb Time International Ratio 1.2 RATIO Activated Partial Thromboplast Time 28.1 SEC Urine Color YELLOW Urine Turbidity CLOUDY Urine pH 5.0 Urine Specific Henry 1.023 Urine Protein 100 mg/dL Urine Glucose (UA) NEG mg/dL Urine Ketones NEG mg/dL Urine Occult Blood LARGE Urine Nitrite NEG Urine Bilirubin NEG Urine Urobilinogen LESS THAN 2.0 MG/DL Urine Leukocyte Esterase LARGE Urine RBC /hpf Urine WBC 53 /hpf Urine WBC Clumps MOD Urine Amorphous Sediment MANY Urine Bacteria OCC /hpf Urine Hyaline Casts 13 /lpf Urine Mucus FEW /lpf Microscopic Urinalysis Comment CATH-CULTURE IND Blood Urea Nitrogen 65 MG/DL Creatinine 3.43 MG/DL Random Glucose 230 MG/DL Total Protein 6.5 GM/DL Albumin 1.7 GM/DL Calcium Level 8.0 MG/DL Alkaline Phosphatase 1207 U/L Aspartate Amino Transf (AST/SGOT) 140 U/L Alanine Aminotransferase (ALT/SGPT) 21 U/L Total Bilirubin 0.7 MG/DL Sodium Level 137 MEQ/L Potassium Level 5.4 MEQ/L Chloride Level 103 MEQ/L Carbon Dioxide Level 13.8 MEQ/L Anion Gap 20 MEQ/L Estimat Glomerular Filtration Rate 18 ML/MIN Lactic Acid Level 8.4 mmol/L 3.5 mmol/L Ammonia 43 MCMOL/L Total Creatine Kinase 143 U/L Troponin I LESS THAN 0.02 NG/ML Thyroid Stimulating Hormone 3rd Gen 0.389 uIU/ML Urine Opiates Screen POS Urine Barbiturates Screen NEG Urine Amphetamines Screen NEG Urine Benzodiazepines Screen NEG Urine Cocaine Screen NEG Urine Cannabinoids Screen NEG Ethyl Alcohol Level LESS THAN 3 MG/DL Blood Gas Puncture Site ART LINE ART LINE Blood Gas Patient Temperature 98.6 98.6 Blood Gas HCO3 13 mmol/L 24 mmol/L Blood Gas Base Excess -15.5 mmol/L -0.8 mmol/L Blood Gas Oxygen Saturation 98 % 97 % Arterial Blood pH 7.06 7.37 Arterial Blood Partial Pressure CO2 47 mmHg 43 mmHg Arterial Blood Partial Pressure O2 451 mmHG 167 mmHg Arterial Blood Oxygen Content 11.6 Vol % 13.6 Vol % Arterial Blood Carboxyhemoglobin 0.6 % 0.7 % Arterial Blood Methemoglobin 0.7 % 1.3 % Blood Gas Hemoglobin 7.5 G/DL 9.7 G/DL Oxygen Delivery Device VENTILATOR VENTILATOR Blood Gas Ventilator Setting 14/500/+5/100 500/18/5PEEP Blood Gas Inspired Oxygen 100 % 40 % Test 01/23/18 16:40 01/23/18 19:00 01/23/18 19:30 01/24/18 04:20 Nasal Screen MRSA (PCR) MRSA NOT DETECTED Blood Urea Nitrogen 52 MG/DL 46 MG/DL 33 MG/DL Creatinine 1.70 MG/DL 1.43 MG/DL 0.81 MG/DL Random Glucose 299 MG/DL 270 MG/DL 216 MG/DL Total Protein 5.5 GM/DL 5.5 GM/DL 5.8 GM/DL Calcium Level 7.1 MG/DL 7.1 MG/DL 8.1 MG/DL Sodium Level 140 MEQ/L 142 MEQ/L 142 MEQ/L Potassium Level 5.7 MEQ/L 5.1 MEQ/L 4.9 MEQ/L Chloride Level 108 MEQ/L 108 MEQ/L 107 MEQ/L Carbon Dioxide Level 25.0 MEQ/L 27.2 MEQ/L 27.5 MEQ/L Anion Gap 7 MEQ/L 7 MEQ/L 8 MEQ/L Estimat Glomerular Filtration Rate 40 ML/MIN 49 ML/MIN 94 ML/MIN Protein Corrected Calcium 7.9 MG/DL 7.9 MG/DL Lactic Acid Level 1.7 mmol/L 1.2 mmol/L White Blood Count 9.8 TH/MM3 Red Blood Count 2.95 MIL/MM3 Hemoglobin 8.3 GM/DL Hematocrit 24.9 % Mean Corpuscular Volume 84.4 FL Mean Corpuscular Hemoglobin 28.3 PG Mean Corpuscular Hemoglobin Concent 33.5 % Red Cell Distribution Width 15.7 % Platelet Count 294 TH/MM3 Mean Platelet Volume 7.9 FL Neutrophils (%) (Auto) 83.2 % Lymphocytes (%) (Auto) 11.8 % Monocytes (%) (Auto) 4.8 % Eosinophils (%) (Auto) 0.1 % Basophils (%) (Auto) 0.1 % Neutrophils # (Auto) 8.2 TH/MM3 Lymphocytes # (Auto) 1.2 TH/MM3 Monocytes # (Auto) 0.5 TH/MM3 Eosinophils # (Auto) 0.0 TH/MM3 Basophils # (Auto) 0.0 TH/MM3 CBC Comment AUTO DIFF Differential Total Cells Counted 100 Neutrophils % (Manual) 84 % Band Neutrophils % 5 % Lymphocytes % 6 % Monocytes % 1 % Eosinophils % 1 % Neutrophils # (Manual) 9.0 TH/MM3 Metamyelocytes 1 % Myelocytes 2 % Nucleated Red Blood Cells 1 /100 WBC Differential Comment FINAL DIFF MANUAL Platelet Estimate NORMAL Platelet Morphology Comment NORMAL Red Cell Morphology Comment NORMAL Albumin 1.5 GM/DL Alkaline Phosphatase 1326 U/L Aspartate Amino Transf (AST/SGOT) 180 U/L Alanine Aminotransferase (ALT/SGPT) 22 U/L Total Bilirubin 0.5 MG/DL Random Vancomycin Level 6.9 COMMENT Culture Results Microbiology Date/Time Source Procedure Growth Status 01/23/18 10:20 Blood Peripheral Aerobic Blood Culture Pending Received 01/23/18 10:20 Blood Peripheral Anaerobic Blood Culture Pending Received 01/23/18 10:00 Blood Peripheral Aerobic Blood Culture Pending Received 01/23/18 10:00 Blood Peripheral Anaerobic Blood Culture Pending Received 01/23/18 10:20 Urine Clean Catch Urine Culture Pending Received Imaging Studies Last [address] 01/23/18 1012 Signed Impressions: Service Date/Time: Tuesday, January 23, 2018 15:23 - CONCLUSION: Normal examination. Matthew Hernandez MD Chest X-Ray 01/23/18 1012 Signed Impressions: Service Date/Time: Tuesday, January 23, 2018 10:17 - CONCLUSION: ET in good position. Nasogastric tube could be advanced. Salvador Maya MD FACR Administered Medications Medications (Trade) Dose Ordered Sig/Stacey Route PRN Reason Start Time Stop Time Status Last Admin Dose Admin Norepinephrine Bitartrate 250 ml @ 7.5 mls/hr TITRATE PRN IV Blood pressure management 01/23/18 11:30 01/24/18 04:24 Fentanyl Citrate 250 ml @ 5 mls/hr TITRATE PRN IV SEDATION 01/23/18 11:30 01/24/18 04:25 Famotidine (Pepcid Inj) 10 mg Q12HR IV PUSH 01/23/18 13:15 01/24/18 08:34 Albuterol/ Ipratropium (Duoneb Neb) 1 ampule Q6HR NEB INH 01/23/18 13:00 01/24/18 07:33 Chlorhexidine Gluconate (Chlorhexidine 2% Cloth) 3 pack Taper DAILY@04 TOP 01/24/18 04:00 01/20/19 03:59 01/24/18 04:00 Insulin Human Regular (NovoLIN R SUPPLEMENTAL SCALE) 1 Q4H SQ 01/23/18 14:00 01/24/18 08:33 Hydrocortisone Sodium Succinate (SoluCORTEF INJ) 50 mg Q6HR IV PUSH 01/23/18 14:45 01/24/18 04:23 Miscellaneous Information Patient in critical care unit? Ass... [id number] 01/23/18 18:00 01/23/18 18:00 Meropenem 1000 mg/ Sodium Chloride 100 ml @ 200 mls/hr Q12H IV 01/23/18 20:00 01/24/18 08:34 Micafungin Sodium 150 mg/Sodium Chloride 100 ml @ 100 mls/hr Q24H IV 01/23/18 21:00 01/23/18 21:00 Sodium Chloride 1,000 ml @ 84 mls/hr [id number] IV 01/23/18 20:00 01/24/18 08:39 Midazolam HCl 100 ml @ 2 mls/hr TITRATE PRN IV SEDATION 01/24/18 02:30 01/24/18 03:00 Objective Remarks GENERAL: Intubated sedated male. SKIN: Warm and dry. HEAD: Normocephalic. EYES: No injection or drainage. NECK: Supple, trachea midline. CARDIOVASCULAR: Regular rate and rhythm RESPIRATORY: on mechanical ventilation. GASTROINTESTINAL: Abdomen nondistended. EXTREMITIES: No cyanosis NEUROLOGICAL: intubated, sedated Assessment/Plan Problem List: (1) Respiratory failure ICD Codes: J96.90 - Respiratory failure, unspecified, unspecified whether with hypoxia or hypercapnia Plan: --due to underlying malignancy, also possibly underlying infection. (2) Sepsis ICD Codes: A41.9 - Sepsis, unspecified organism Plan: --BC pending. --on broad spectrum antibiotics (3) Bone metastases ICD Codes: C79.51 - Secondary malignant neoplasm of bone Plan: --Metastatic bony disease with lung lesion. --concerning for bronchogenic carcinoma. ++history of tobacco abuse. --not stable for a biopsy. if he clinically improves, we will need to obtain a biopsy of the lung lesion. (4) Acute kidney injury ICD Codes: N17.9 - Acute kidney failure, unspecified Assessment 72y/o male with lung mass and metastatic bony disease admitted with altered mental status and respiratory failure. History of lung lesions and metastatic bone lesions, coronary artery disease with a history of LA, hypertension, hyperlipidemia, diabetes. h/o cardiac catheterization with stent placement, hernioplasty, appendectomy. Plan 1. Patient's s/o Britt Mercedes is at the bedside. She asks for a palliative care consult and possible compassionate extubation. She states "he never would have wanted all of this. He would have been angry at me for allowing them to intubate him." 2. I have placed the palliative care consult at the s/o's request. Attending Statement The exam, history, and the medical decision-making described in the above note were completed with the assistance of the mid-level provider. I reviewed and agree with the findings presented. I attest that I had a [id number] encounter with the patient on the same day, and personally performed and documented my assessment and findings in the medical record. Family at bedside requesting extubation and comfort care measures answered questions regarding advanced stage carcinoma and the poor prognosis Coye,Mirella Philomena PA Jan 24, 2018 10:17 Pascual Jordan MD Jan 24, 2018 22:17
[2018-01-24] MEDS ORDERED: VANCOMYCIN 1,000 MG/NS 250 ML IV SCH ×2 (13:00)
--- NOTE | 2018-01-24 14:19 | HHI.CCPN ---
Subjective Remarks/Hospital Course The patient is a 72-year-old male with a past medical history of coronary artery disease with previous DC, hypertension, diabetes mellitus, hyperlipidemia , metastatic lung cancer to the bone, who presented to [facility] ED via EMS for altered mental status. When EMS arrived, and patient had a GCS, 3 unresponsive. His initial O2 saturation in the 60s, which improved to the 90s on a nonrebreather. Upon arrival, he was tachycardic, confused and was subsequently intubated and placed on full mechanical ventilation. He had a temperature of 100.5 and his laboratory data significant for leukocytosis with a WBC of 20 associated with bandemia. Other significant labs showed acute renal failure with a BUN of 65, creatinine 3.43, and elevated lactic acid level 8.4. His urinalysis was positive for leukocyte esterase, wbc, moderate wbc clumps and occasional bacteria. The patient was given 3 L of crystalloids along with 1 amp of sodium bicarbonate, vancomycin, Flagyl and started on Levophed. When seen in the ER, the patient is sedated with Versed and fentanyl and on full mechanical ventilation. He is scheduled to undergo a CT scan of the brain without contrast and CT abdomen and pelvis. According to the significant other, he had a PET scan as an outpatient on 01/19, which showed diffuse hypermetabolic mediastinal adenopathy compatible with metastatic disease and hypermetabolic bilateral supraclavicular adenopathy and findings suggestive of bone mets. Right IJ central line and left arterial line were placed by ED. His lactic acid improved to 3.5 from 8.4 after fluid resuscitation. ABG post-intubation showed a pH of 7.06, CO2 of 47, PaO2 of 451, bicarbonate 13, saturation 98% on assist and full ventilation with a rate of 14, tidal volume 500, PEEP of 5, 100% FIO2. SUBJ 01/24: Patient remains intubated sedated currently on Levophed 5 mcg/min. Remains critically ill. Patient's living will brought in by significant other. He does not want life prolonging measures if he is in terminal condition which he is due to metastatic lung cancer Objective Vital Signs Date Time Temp Pulse Resp B/P (MAP) Pulse Ox O2 Delivery O2 Flow Rate FiO2 01/24/18 13:17 74 143/62 01/24/18 12:00 98.0 29 100 01/24/18 07:34 35 01/23/18 16:00 Ventilator Intake and Output 01/24/18 01/24/18 01/25/18 08:00 16:00 00:00 Intake Total 600 ml Output Total 1600 ml Balance -1000 ml Result Diagram: 01/24/18 0420 01/24/18 0420 Other Results Laboratory Tests Test 01/23/18 16:35 Blood Gas Puncture Site ART LINE Blood Gas Patient Temperature 98.6 Blood Gas HCO3 24 mmol/L (22-26) Blood Gas Base Excess -0.8 mmol/L (-2-2) Blood Gas Oxygen Saturation 97 % (90-100) Arterial Blood pH 7.37 (7.380-7.420) Arterial Blood Partial Pressure CO2 43 mmHg (38-42) Arterial Blood Partial Pressure O2 167 mmHg (61-120) Arterial Blood Oxygen Content 13.6 Vol % (12.0-20.0) Arterial Blood Carboxyhemoglobin 0.7 % (0-4) Arterial Blood Methemoglobin 1.3 % (0-2) Blood Gas Hemoglobin 9.7 G/DL (12.0-16.0) Oxygen Delivery Device VENTILATOR Blood Gas Ventilator Setting 500/18/5PEEP Blood Gas Inspired Oxygen 40 % Objective Remarks GENERAL: A 72-year-old male, critically ill, intubated, on full mechanical ventilation and in septic shock. HEENT: Atraumatic, normocephalic. Pupils are equal, round, reactive to light and accommodation. ETT in place NECK: Supple. No JVD, adenopathy, thyromegaly. Trachea in the midline. HEART: Tachycardic. Normal S1, S2. No murmurs, rubs or gallops noted. Remains on 5 mcg/min of Levophed LUNGS: Bilateral equal entry. No rales or wheezing. ABDOMEN: Soft, nontender, positive bowel sounds. EXTREMITIES: No cyanosis, clubbing, edema. NEUROLOGIC: Intubated and sedated. Moves extremities spontaneously when sedation is lightened A/P Assessment and Plan ASSESSMENT Acute respiratory failure requiring intubation and mechanical ventilation. Altered mental status/metabolic encephalopathy. Septic shock Acute kidney injury. Anion gap metabolic acidosis. UTI with group B enterococcus Lactic acidemia. Hyperglycemia with underlying history of diabetes mellitus. Elevated AST and alkaline phosphatase. Leukocytosis with bandemia. Anemia. Metastatic lung disease. History of coronary artery disease. History of hypertension. History of diabetes mellitus and hyperlipidemia. RECOMMENDATIONS: -Monitor neuro status closely. The patient was placed on fentanyl and Versed drip in the ER for sedation and vent synchrony. Daily sedation vacation when clinically appropriate. -CT scan of the brain negative for acute findings. Urine drug screen was positive for opiates. -Continue with vent support and maintain sats above 92%. Mental status will not permit SBT and extubation -DuoNeb q. 6, and ICU vent bundle. Stress dose steroids, hydrocortisone 50 mg IV q. 6. Patient is on prednisone 5 mg daily at home. -Levophed to maintain MAP greater than 65 mmHg. s/p 3 L of crystalloid in the ED. Continue bicarbonate drip. -Lactic acid reduced from 8.4 to 3.5 with fluid resuscitation. -The patient was seen by Dr. Bundy from cardiology on the previous admission. 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 -Monitor renal function, I's and O's and avoid nephrotoxins. -CT scan of the abdomen and pelvis negative for acute findings. Nephrology following -Keep n.p.o. for now. Pepcid for GI prophylaxis. Monitor LFTs. -Continue with IV vancomycin, IV meropenem and IV micafungin -Urine culture growing group D enterococcus -Monitor CBC and coags and consulted oncology service. Lung ca Stage 4 -Sliding scale insulin with Accu-Cheks for glycemic control. -GI prophylaxis with Pepcid 10 mg q. 12 and DVT prophylaxis with SCDs for now. Start Lovenox if family wants to continue aggressive -Right IJ central line and left arterial radial line The patient is critically ill with septic shock, respiratory failure, renal failure, multiorgan injury and with likely stage IV metastatic disease. However significant other brought in living will suggesting patient does not want life support or aggressive care if he has a terminal condition. Patient has stage IV metastatic lung disease which is a terminal condition, now with septic shock and multiorgan failure. Await palliative care consult and input. Continue aggressive care until decisions are made Critical care time 35 minutes, excluding procedures. Mamie Castro MD Jan 24, 2018 14:19
--- NOTE | 2018-01-24 14:59 | PD.CONS ---
Consult Service Palliative Care . Consult Requested By Mirella CROSS . Primary Care Physician Unknown . Reason for Consultation a. To assist with evaluation and management of symptoms including: Pain, dyspnea, debility b. To assist medical decision maker(s) with: better understanding of current medical conditions; weighing benefits/burdens of medical treatment options; making medical treatment decisions. . HPI History of Present Illness Mr. Cason is a 72 year old male patient with a known history of metastatic lung cancer to the bone, recent UTI, kidney stones, CAD status post CO 2, COPD, hypertension, hyperlipidemia and diabetes who presented to [facility] on 01/23/2018 via EMS for evaluation of altered mental status. Patient's significant other found him unresponsive in bed and called 911. GCS of 3 upon EMS arrival. Initially oxygen saturations were in the 60s but increased to the 90s after patient was placed on a nonrebreather. Additional diagnostic testing while in the ED: * Vital signs: Pulse 138, BP 109/58, oral temperature 100.5 * WBC: 20.2, hemoglobin 8.9, hematocrit 29.0, platelets 507, neutrophils 65.2% * Sodium: 140, potassium 5.7, chloride 108, carbon dioxide 25.0, glucose 299, calcium 7.1 * BUN: 52, creatinine 1.70, GFR 40 * Total protein: 5.5 * PT: 12.2, INR 1.2, APTT 28.1 * Toxicology screening: + opiates * Urinalysis with occult blood, leukocyte esterase, urine WBC, urine WBC clumps , occasional bacteria and a few mucus. Urine culture growing group D enterococcus. * Blood culture showing no growth in 1 day. * CT chest confirmed right lung mass and bony metastasis. * CT head was a normal examination * CT abdomen/pelvis was stable with no acute findings. * Upon arrival to the ED the patient was tachycardic with a heart rate in the 140s and hypotensive with acute respiratory failure; he was confused and unable to follow simple commands, trying to get out of bed. Therefore, the patient was intubated for airway protection and to facilitate medical treatment. Patient was given 3 L of crystalloids along with 1 amp of sodium bicarbonate, vancomycin, flagyl and was started on levophed. His blood pressure remained low , therefore, judith-Synephrine drip was started. Patient's white blood count was noted to be elevated at 20 and his lactic acid was >8, consistent with severe septic shock. Patient's lactic acid decreased from 8.4-3.5 after fluid resuscitation. Of note, patient significant other states the patient had a PET scan last week which showed metastatic cancer to the lower spine and a mass within the lungs. Patient was admitted for further evaluation and medical management of septic shock, respiratory failure, renal failure, multiorgan injury and likely stage IV metastatic disease. Infectious disease and nephrology were consulted. Patient was hospitalized a few weeks ago with nephrolithiasis and underwent a left ureteral stent. He was supposed to have lithotripsy but developed other complications including recent diagnosis of metastatic cancer. Kidney functioning is improving. Dr. Jordan, Oncology, evaluated the patient yesterday 01/23/2018. CT abdomen/ pelvis showed no visceral disease in the abdomen; widespread bony metastatic disease was visualized. CT chest showed a medial right retro-hilar mass, approximately 3 cm. There was satellite nodularity; there was widespread bony densities suggesting widespread metastatic disease. CT of the head was normal. Metastatic bony disease with lung lesion is concerning for bronchogenic carcinoma. Patient's history is positive for tobacco abuse. Would suggest biopsy when patient if he were to stabilize, however treatment would not be curative. Palliative Care was consulted to assist with symptom management and to discuss with the family the benefits and burdens of her current illnesses and the options regarding future care. Patient's significant other has stated, " He never would have wanted all of this. He would have been angry at me for allowing them to intubate him." Britt Mercedes, patient's significant other/ healthcare surrogate, requests that the patient's living will be honored and he be compassionately withdrawn from artificial life support. . Function/Cognitive Trajectory Patient's significant other states the patient began having a decline in functional status and complaints of lower back pain in August,. The patient saw his PCP multiple times; he was also treated for kidney stones status post urinary stent placement. Patient has had progressively worsening pain, confusion and delirium. Patient 40-50 pound weight loss is reported in the past 6 months. . Review of Systems ROS Limitations: Clinical Condition (ROS obtained through review of note and family/friend report), Intubated Constitutional: COMPLAINS OF: Weight loss (40-50 pound weight loss in recent months), Change in appetite (Decreased), Pain, Generalized weakness Cardiovascular: COMPLAINS OF: Lower Extremity Edema, DENIES: Chest pain Hematologic/Lymphatics: COMPLAINS OF: Bruising Psychiatric: COMPLAINS OF: Confusion Past Family Social History Coded Allergies: Penicillins (Verified Allergy, Mild, Rash, 01/23/18) acetaminophen (Verified Adverse Reaction, Unknown, Confusion, 01/23/18) lorazepam (Verified Adverse Reaction, Unknown, Confusion, 01/23/18) oxycodone (Verified Adverse Reaction, Unknown, Confusion, 01/23/18) Past Medical History Metastatic lung cancer to the bone History of kidney stones CAD status post CO 2 COPD Hypertension Hyperlipidemia Diabetes . Past Surgical History Cardiac catheterization with stent placement Hernioplasty Appendectomy . Reported Medications Prednisone 5 Mg Tab 5 Mg PO DAILY Percocet (Oxycodone-Acetaminophen) 10-325 mg Tab 1 Tab PO Q6H PRN . Current Medications Medications (Trade) Dose Ordered Sig/Stacey Route Start Time Stop Time Status Last Admin (NS Flush) 2 ml UNSCH PRN IV FLUSH 01/23/18 10:15 Norepinephrine Bitartrate 250 ml @ 7.5 mls/hr TITRATE PRN IV 01/23/18 11:30 01/24/18 13:17 Fentanyl Citrate 250 ml @ 5 mls/hr TITRATE PRN IV 01/23/18 11:30 01/24/18 04:25 Phenylephrine HCl 40 mg/Dextrose 500 ml @ 30 mls/hr TITRATE PRN IV 01/23/18 12:45 (Brethine Inj) 1 mg UNSCH PRN SQ 01/23/18 12:45 (Pepcid Inj) 10 mg Q12HR IV PUSH 01/23/18 13:15 01/24/18 08:34 (Duoneb Neb) 1 ampule Q6HR NEB INH 01/23/18 13:00 01/24/18 07:33 Miscellaneous Information 1 Q361D XX 01/23/18 13:00 (Chlorhexidine 2% Cloth) 3 pack Taper DAILY@04 TOP 01/24/18 04:00 01/20/19 03:59 01/24/18 04:00 (Chlorhexidine 2% Cloth) 3 pack UNSCH PRN TOP 01/23/18 13:00 (D50w (Vial) Inj) 50 ml UNSCH PRN IV PUSH 01/23/18 13:00 (Glucagon Inj) 1 mg UNSCH PRN OTHER 01/23/18 13:00 (NovoLIN R SUPPLEMENTAL SCALE) 1 Q4H SQ 01/23/18 14:00 01/24/18 08:33 Pharmacy Profile Note 0 ml @ 0 mls/hr UNSCH OTHER 01/23/18 13:00 (SoluCORTEF INJ) 50 mg Q6HR IV PUSH 01/23/18 14:45 01/24/18 11:46 Miscellaneous Information Patient in critical care unit? Ass... Q361D .XX 01/23/18 18:00 01/23/18 18:00 (Chlorhexidine 2% Cloth) 3 pack DAILY@04 TOPICAL 01/24/18 04:00 01/28/18 04:01 (Chlorhexidine 2% Cloth) 3 pack UNSCH PRN TOPICAL 01/23/18 18:00 01/28/18 17:53 (ASP Crit: Doc allergy to Penicillin/ Cephalosp) 1 UNSCH X1 PRN .XX 01/23/18 19:00 01/24/18 18:59 (ASP Crit: Infectious disease consult) 1 UNSCH X1 PRN .XX 01/23/18 19:00 01/24/18 18:59 ([facility]) 1 UNSCH X1 PRN XX 01/23/18 19:00 01/24/18 18:59 Meropenem 1000 mg/ Sodium Chloride 100 ml @ 200 mls/hr Q12H IV 01/23/18 20:00 01/24/18 08:34 Micafungin Sodium 150 mg/Sodium Chloride 100 ml @ 100 mls/hr Q24H IV 01/23/18 21:00 01/23/18 21:00 Sodium Chloride 1,000 ml @ 84 mls/hr [id number] IV 01/23/18 20:00 01/24/18 08:39 (Versed Inj) 2 mg Q15M PRN IV 01/24/18 02:00 Midazolam HCl 100 ml @ 2 mls/hr TITRATE PRN IV 01/24/18 02:30 01/24/18 11:46 (Versed Inj) 2 mg Q15M PRN IV PUSH 01/24/18 02:30 Vancomycin HCl 1000 mg/Sodium Chloride 250 ml @ 250 mls/hr Q12H IV 01/24/18 13:00 01/24/18 13:13 Miscellaneous Information SPECIFIC LAB TO BE ... ONCE ONCE .XX 01/26/18 00:45 01/26/18 00:46 . Family History No familial history of CAD/DM . Substance Use Tobacco: Previous smoker, quit in 2009 Alcohol: Occasionally drinks alcohol Prescription med abuse: None known Illicits: None known . Psychosocial History Patient is originally from [place]. He left his approximately 22 years ago and moved to [place]. He has no contact with his 2 adult children. Patient has been with his significant other/HCS for approximately 21 years. 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 . Spiritual/Cultural Factors Patient was raised Gnosticism but no longer practices organized synagogue. Religious Studies Professor support refused. . Living Will: Copy in medical record Health Care Surrogate: Copy in medical record Durable Power of Teletypesetter Operator: Copy in medical record Date completed: 08/17/2006 . Health Care Surrogate(s): Significant other, Britt Mercedes, is designated as the healthcare surrogate decision maker. . Documented care wishes: Patient completed a living will on August 17, 2006 that states if the patient were to have a terminal condition, an end-stage condition or be in a persistent vegetative state and the patient's attending as well as another consulting physician were to determine that there is no reasonable medical probability of his recovery from such condition, the patient directs that life prolonging procedures be withheld or withdrawn when application of such procedures would serve only to prolong artificially the process of dying, and that he be permitted to naturally with only the administration of medication or the performance of any medical procedure deemed necessary to provide me with comfort care or to alleviate pain. . Today's verbally stated goals: Given patient's current level of responsiveness, he is unable to verbally express his medical treatment goals at this time. . Family/friends goals: Patient significant other, Britt Mercedes, has chosen to honor the patient's wishes as declared in his living well and allow the patient to pass peacefully and naturally at this time. At this time, the healthcare surrogate's primary goal is that the patient be comfortable. . Ethical and Legal Issues No known ethical or legal issues at this time. . Physical Exam Vital Signs Date Time Temp Pulse Resp B/P (MAP) Pulse Ox O2 Delivery O2 Flow Rate FiO2 01/24/18 13:17 74 143/62 01/24/18 12:00 98.0 76 29 150/72 (98) 100 01/24/18 08:00 98.2 80 20 84/74 (77) 100 136/75 (95) 01/24/18 07:34 99 35 01/24/18 06:00 87 01/24/18 06:00 87 19 82/70 (74) 99 132/71 (91) 01/24/18 05:00 81 21 94/80 (85) 100 151/78 (102) 01/24/18 04:24 90 108/63 01/24/18 04:01 100 35 01/24/18 04:00 40 01/24/18 04:00 84 01/24/18 04:00 98.2 84 11 91/78 (82) 99 133/70 (91) 01/24/18 03:00 93 18 80/60 (67) 99 100/57 (71) 01/24/18 02:00 72 18 92/81 (85) 100 135/62 (86) 01/24/18 02:00 72 01/24/18 01:00 74 18 85/75 (78) 100 127/67 (87) 01/24/18 00:37 100 35 01/24/18 00:00 40 01/24/18 00:00 75 01/24/18 00:00 97.9 75 18 79/57 (64) 100 121/65 (83) 01/23/18 23:00 76 18 91/82 (85) 100 123/61 (81) 01/23/18 22:00 79 01/23/18 22:00 79 18 87/75 (79) 100 114/62 (79) 01/23/18 21:00 88 19 96/52 (67) 100 107/64 (78) 01/23/18 20:39 97.7 95 30 110/55 (73) 100 01/23/18 20:00 40 01/23/18 20:00 80 01/23/18 19:58 100 35 01/23/18 19:00 84 19 91/52 (65) 100 105/57 (73) 01/23/18 18:00 83 01/23/18 18:00 83 18 113/47 (69) 100 103/56 (72) 01/23/18 17:00 85 18 118/49 (72) 100 109/55 (73) 01/23/18 16:01 97.8 93 20 122/47 (72) 98 113/55 (74) 01/23/18 16:00 92 18 132/67 (88) 99 Ventilator 01/23/18 16:00 93 23 126/49 (74) 98 01/23/18 16:00 40 01/23/18 15:52 101 38 143/46 (78) 137/64 (88) 01/23/18 14:29 50 01/23/18 14:17 97 40 . Exam CONSTITUTIONAL/GENERAL: This is a frail, elderly gentleman who is currently intubated on mechanical vent TUBES/LINES/DRAINS: CVL, PIV, Art line, ETT, NGT, Briseno, soft restraints SKIN: Generalized pallor. ecchymoses on upper extremities. No wounds seen anteriorly. HEAD: Atraumatic. Normocephalic. EYES: Pupils equal and round and reactive. Extraocular motions intact. No scleral icterus. No injection or drainage. Fundi not examined. ENT: Nose without bleeding or purulent drainage. Dry mucous membranes. NECK: Trachea midline. CARDIOVASCULAR: Regular rate and rhythm without murmurs, gallops, or rubs. No JVD. Peripheral pulses symmetric. RESPIRATORY/CHEST: Intubated on mechanical vent. Tachypneic. Scattered rhonchi. GASTROINTESTINAL: Abdomen soft, non-tender, nondistended. GENITOURINARY: Without palpable bladder distension. Briseno catheter in place. MUSCULOSKELETAL: No obvious deformities. LYMPHATICS: No palpable cervical or supraclavicular adenopathy. NEUROLOGICAL: Sedated on mechanical ventilator PSYCHIATRIC: No obvious anxiety/depression. No apparent hallucinations or other psychotic thought process. . Diagnostic Tests Laboratory Laboratory Tests Test 01/23/18 10:20 01/23/18 11:11 01/23/18 13:35 01/23/18 16:35 White Blood Count 20.2 TH/MM3 (4.0-11.0) Red Blood Count 3.24 MIL/MM3 (4.50-5.90) Hemoglobin 8.9 GM/DL (13.0-17.0) Hematocrit 29.0 % (39.0-51.0) Mean Corpuscular Volume 89.3 FL (80.0-100.0) Mean Corpuscular Hemoglobin 27.3 PG (27.0-34.0) Mean Corpuscular Hemoglobin Concent 30.6 % (32.0-36.0) Red Cell Distribution Width 15.9 % (11.6-17.2) Platelet Count 507 TH/MM3 (150-450) Mean Platelet Volume 8.6 FL (7.0-11.0) Neutrophils (%) (Auto) 65.2 % (16.0-70.0) Lymphocytes (%) (Auto) 27.7 % (9.0-44.0) Monocytes (%) (Auto) 6.1 % (0.0-8.0) Eosinophils (%) (Auto) 0.3 % (0.0-4.0) Basophils (%) (Auto) 0.7 % (0.0-2.0) Neutrophils # (Auto) 13.1 TH/MM3 (1.8-7.7) Lymphocytes # (Auto) 5.6 TH/MM3 (1.0-4.8) Monocytes # (Auto) 1.2 TH/MM3 (0-0.9) Eosinophils # (Auto) 0.1 TH/MM3 (0-0.4) Basophils # (Auto) 0.1 TH/MM3 (0-0.2) CBC Comment AUTO DIFF Differential Total Cells Counted 100 Neutrophils % (Manual) 53 % (16-70) Band Neutrophils % 10 % (0-6) Lymphocytes % 26 % (9-44) Monocytes % 4 % (0-8) Neutrophils # (Manual) 13.9 TH/MM3 (1.8-7.7) Metamyelocytes 3 % (0-1) Myelocytes 3 % (0-0) Nucleated Red Blood Cells 1 /100 WBC (0-0) Differential Comment FINAL DIFF MANUAL Plasma Cells 1 % (0-0) Platelet Estimate HIGH (NORMAL) Platelet Morphology Comment NORMAL (NORMAL) Ovalocytes 1+ (NORMAL) Prothrombin Time 12.2 SEC (9.8-11.6) Prothromb Time International Ratio 1.2 RATIO Activated Partial Thromboplast Time 28.1 SEC (24.3-30.1) Urine Color YELLOW (YELLW/STRAW) Urine Turbidity CLOUDY (CLEAR) Urine pH 5.0 (5.0-8.5) Urine Specific [place] 1.023 (1.002-1.035) Urine Protein 100 mg/dL (NEG-TRACE) Urine Glucose (UA) NEG mg/dL (NEG) Urine Ketones NEG mg/dL (NEG) Urine Occult Blood LARGE (NEG) Urine Nitrite NEG (NEG) Urine Bilirubin NEG (NEG) Urine Urobilinogen LESS THAN 2.0 MG/DL (LESS Urine Leukocyte Esterase LARGE (NEG) Urine RBC /hpf (0-3) Urine WBC 53 /hpf (0-5) Urine WBC Clumps MOD (NONE) Urine Amorphous Sediment MANY Urine Bacteria OCC /hpf (NONE) Urine Hyaline Casts 13 /lpf (RARE) Urine Mucus FEW /lpf (OCC) Microscopic Urinalysis Comment CATH-CULTURE IND Blood Urea Nitrogen 65 MG/DL (7-18) Creatinine 3.43 MG/DL (0.60-1.30) Random Glucose 230 MG/DL (74-106) Total Protein 6.5 GM/DL (6.4-8.2) Albumin 1.7 GM/DL (3.4-5.0) Calcium Level 8.0 MG/DL (8.5-10.1) Alkaline Phosphatase 1207 U/L (45-117) Aspartate Amino Transf (AST/SGOT) 140 U/L (15-37) Alanine Aminotransferase (ALT/SGPT) 21 U/L (12-78) Total Bilirubin 0.7 MG/DL (0.2-1.0) Sodium Level 137 MEQ/L (136-145) Potassium Level 5.4 MEQ/L (3.5-5.1) Chloride Level 103 MEQ/L (98-107) Carbon Dioxide Level 13.8 MEQ/L (21.0-32.0) Anion Gap 20 MEQ/L (5-15) Estimat Glomerular Filtration Rate 18 ML/MIN (>89) Lactic Acid Level 8.4 mmol/L (0.4-2.0) 3.5 mmol/L (0.4-2.0) Ammonia 43 MCMOL/L (11-32) Total Creatine Kinase 143 U/L (39-308) Troponin I LESS THAN 0.02 NG/ML Thyroid Stimulating Hormone 3rd Gen 0.389 uIU/ML (0.358-3.740) Urine Opiates Screen POS (NEG) Urine Barbiturates Screen NEG (NEG) Urine Amphetamines Screen NEG (NEG) Urine Benzodiazepines Screen NEG (NEG) Urine Cocaine Screen NEG (NEG) Urine Cannabinoids Screen NEG (NEG) Ethyl Alcohol Level LESS THAN 3 MG/DL (0-5) Blood Gas Puncture Site ART LINE ART LINE Blood Gas Patient Temperature 98.6 98.6 Blood Gas HCO3 13 mmol/L (22-26) 24 mmol/L (22-26) Blood Gas Base Excess -15.5 mmol/L (-2-2) -0.8 mmol/L (-2-2) Blood Gas Oxygen Saturation 98 % (90-100) 97 % (90-100) Arterial Blood pH 7.06 (7.380-7.420) 7.37 (7.380-7.420) Arterial Blood Partial Pressure CO2 47 mmHg (38-42) 43 mmHg (38-42) Arterial Blood Partial Pressure O2 451 mmHG (61-120) 167 mmHg (61-120) Arterial Blood Oxygen Content 11.6 Vol % (12.0-20.0) 13.6 Vol % (12.0-20.0) Arterial Blood Carboxyhemoglobin 0.6 % (0-4) 0.7 % (0-4) Arterial Blood Methemoglobin 0.7 % (0-2) 1.3 % (0-2) Blood Gas Hemoglobin 7.5 G/DL (12.0-16.0) 9.7 G/DL (12.0-16.0) Oxygen Delivery Device VENTILATOR VENTILATOR Blood Gas Ventilator Setting 14/500/+5/100 500/18/5PEEP Blood Gas Inspired Oxygen 100 % 40 % Test 01/23/18 16:40 01/23/18 19:00 01/23/18 19:30 01/24/18 04:20 Nasal Screen MRSA (PCR) MRSA NOT DETECTED (NOT Blood Urea Nitrogen 52 MG/DL (7-18) 46 MG/DL (7-18) 33 MG/DL (7-18) Creatinine 1.70 MG/DL (0.60-1.30) 1.43 MG/DL (0.60-1.30) 0.81 MG/DL (0.60-1.30) Random Glucose 299 MG/DL (74-106) 270 MG/DL (74-106) 216 MG/DL (74-106) Total Protein 5.5 GM/DL (6.4-8.2) 5.5 GM/DL (6.4-8.2) 5.8 GM/DL (6.4-8.2) Calcium Level 7.1 MG/DL (8.5-10.1) 7.1 MG/DL (8.5-10.1) 8.1 MG/DL (8.5-10.1) Sodium Level 140 MEQ/L (136-145) 142 MEQ/L (136-145) 142 MEQ/L (136-145) Potassium Level 5.7 MEQ/L (3.5-5.1) 5.1 MEQ/L (3.5-5.1) 4.9 MEQ/L (3.5-5.1) Chloride Level 108 MEQ/L (98-107) 108 MEQ/L (98-107) 107 MEQ/L (98-107) Carbon Dioxide Level 25.0 MEQ/L (21.0-32.0) 27.2 MEQ/L (21.0-32.0) 27.5 MEQ/L (21.0-32.0) Anion Gap 7 MEQ/L (5-15) 7 MEQ/L (5-15) 8 MEQ/L (5-15) Estimat Glomerular Filtration Rate 40 ML/MIN (>89) 49 ML/MIN (>89) 94 ML/MIN (>89) Protein Corrected Calcium 7.9 MG/DL (8.5-10.1) 7.9 MG/DL (8.5-10.1) Lactic Acid Level 1.7 mmol/L (0.4-2.0) 1.2 mmol/L (0.4-2.0) White Blood Count 9.8 TH/MM3 (4.0-11.0) Red Blood Count 2.95 MIL/MM3 (4.50-5.90) Hemoglobin 8.3 GM/DL (13.0-17.0) Hematocrit 24.9 % (39.0-51.0) Mean Corpuscular Volume 84.4 FL (80.0-100.0) Mean Corpuscular Hemoglobin 28.3 PG (27.0-34.0) Mean Corpuscular Hemoglobin Concent 33.5 % (32.0-36.0) Red Cell Distribution Width 15.7 % (11.6-17.2) Platelet Count 294 TH/MM3 (150-450) Mean Platelet Volume 7.9 FL (7.0-11.0) Neutrophils (%) (Auto) 83.2 % (16.0-70.0) Lymphocytes (%) (Auto) 11.8 % (9.0-44.0) Monocytes (%) (Auto) 4.8 % (0.0-8.0) Eosinophils (%) (Auto) 0.1 % (0.0-4.0) Basophils (%) (Auto) 0.1 % (0.0-2.0) Neutrophils # (Auto) 8.2 TH/MM3 (1.8-7.7) Lymphocytes # (Auto) 1.2 TH/MM3 (1.0-4.8) Monocytes # (Auto) 0.5 TH/MM3 (0-0.9) Eosinophils # (Auto) 0.0 TH/MM3 (0-0.4) Basophils # (Auto) 0.0 TH/MM3 (0-0.2) CBC Comment AUTO DIFF Differential Total Cells Counted 100 Neutrophils % (Manual) 84 % (16-70) Band Neutrophils % 5 % (0-6) Lymphocytes % 6 % (9-44) Monocytes % 1 % (0-8) Eosinophils % 1 % (0-4) Neutrophils # (Manual) 9.0 TH/MM3 (1.8-7.7) Metamyelocytes 1 % (0-1) Myelocytes 2 % (0-0) Nucleated Red Blood Cells 1 /100 WBC (0-0) Differential Comment FINAL DIFF MANUAL Platelet Estimate NORMAL (NORMAL) Platelet Morphology Comment NORMAL (NORMAL) Red Cell Morphology Comment NORMAL (NORMAL) Albumin 1.5 GM/DL (3.4-5.0) Alkaline Phosphatase 1326 U/L (45-117) Aspartate Amino Transf (AST/SGOT) 180 U/L (15-37) Alanine Aminotransferase (ALT/SGPT) 22 U/L (12-78) Total Bilirubin 0.5 MG/DL (0.2-1.0) Random Vancomycin Level 6.9 COMMENT . Result Diagram: 01/24/18 04201/24/18 0420 Microbiology Microbiology Date/Time Source Procedure Growth Status 01/23/18 10:20 Blood Peripheral Aerobic Blood Culture - Preliminary NO GROWTH IN 1 DAY Resulted 01/23/18 10:20 Blood Peripheral Anaerobic Blood Culture - Preliminary NO GROWTH IN 1 DAY Resulted 01/23/18 10:00 Blood Peripheral Aerobic Blood Culture - Preliminary NO GROWTH IN 1 DAY Resulted 01/23/18 10:00 Blood Peripheral Anaerobic Blood Culture - Preliminary NO GROWTH IN 1 DAY Resulted 01/23/18 10:20 Urine Clean Catch Urine Culture - Preliminary Group D Enterococcus Resulted . Imaging Last [address] 01/23/18 1012 Signed Impressions: Service Date/Time: Tuesday, January 23, 2018 15:23 - CONCLUSION: Normal examination. Matthew Hernandez MD Chest X-Ray 01/23/18 1012 Signed Impressions: Service Date/Time: Tuesday, January 23, 2018 10:17 - CONCLUSION: ET in good position. Nasogastric tube could be advanced. Salvador Maya MD FACR Chest X-Ray 01/23/18 0000 Signed Impressions: Service Date/Time: Tuesday, January 23, 2018 11:22 - CONCLUSION: Support apparatus in good position. No pneumothorax. Lungs are clear. Salvador Maya MD FACR Chest CT 01/23/18 0000 Signed Impressions: Service Date/Time: Tuesday, January 23, 2018 15:30 - CONCLUSION: Right lung mass. Bony metastases. Matthew Hernandez MD Abdomen/Pelvis CT 01/23/18 0000 Signed Impressions: Service Date/Time: Tuesday, January 23, 2018 15:30 - CONCLUSION: Stable CT appearance of the abdomen and pelvis with no new acute findings. Matthew Hernandez MD . Procedures 01/23/2018: NGT placement 01/23/2018: Intubation 01/23/2018: Right IJ central line 01/23/2018: Left radial arterial line . Patient/Family Conference Present at Family Conference: Patient significant other, Britt Mercedes, was at bedside. We also spoke privately in the patient's conference room. . Family Conference Location: Bedside, Consult Room Issues Discussed: * Palliative care role, purpose, approach * Additional medical, psychosocial, and spiritual history * Patients general health, functional status, and cognitive changes in the months leading up to the current hospitalization * Patient/family understanding of the current medical problems * Patient/family understanding of prognosis * Patients goals of care as best understood from advance directives and/or conversations and/or values * Current medical treatment options and benefits/burdens of those options * Likely scenarios comparing ongoing aggressive care with a transition to comfort measures only * Questions answered to the best of my ability * Palliative care contact information provided . Assessment and Plan Disease Oriented Problem List: (1) Coronary artery disease (2) Septic shock (3) Bone metastases (4) Respiratory failure (5) Acute kidney injury (6) UTI (urinary tract infection) Symptom Scale: (1) Dyspnea 0-10 Scale: Unable to quantify (2) Debility 0-10 Scale: Unable to quantify (3) Pain 0-10 Scale: Unable to quantify Pertinent Non-Medical Issues Psychosocial: Patient is originally from [place]. He left his approximately 22 years ago and moved to [place]. He has no contact with his 2 adult children. Patient has been with his significant other/HCS for approximately 21 years. 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 Spiritual: Patient was raised in the Gnosticism katharine but currently does not practice any organized synagogue. Patient's significant other declines nut dehydrator operator support. Legal: Living will/HCS designation form completed 08/17/2006 Ethical issues impacting care: No known ethical issues impacting care at this time. . Important Contacts Britt Mercedes: significant other: [phone] or [phone] . Prognosis Elderly, male patient who has experienced a recent acute decline with a 40-50 pound weight loss reported. Patient was recently diagnosed with metastatic lung cancer to the bones. Admitted 01/23/17 with septic shock, respiratory failure, renal failure, multiorgan injury and likely stage IV metastatic disease. He is currently intubated on mechanical ventilation requiring pressor support. Patient's overall prognosis is poor. . Code Status: No Code Plan * NO CODE-DNR/DNI * Patient designated his significant other, Britt Mercedes, as his healthcare surrogate decision maker. Document was completed on 08/17/2006; copies are accessible in patient's paper chart as well as his EMR. * Patient completed a living will on August 17, 2006 that states if the patient were to have a terminal condition, an end-stage condition or be in a persistent vegetative state and the patient's attending as well as another consulting physician were to determine that there is no reasonable medical probability of his recovery from such condition, the patient directs that life prolonging procedures be withheld or withdrawn when application of such procedures would serve only to prolong artificially the process of dying, and that he be permitted to naturally with only the administration of medication or the performance of any medical procedure deemed necessary to provide me with comfort care or to alleviate pain. * GOAL: Family requesting compassionate withdrawal of artificial life support. Patient was recently diagnosed with metastatic lung cancer to the bones. Admitted on 01/23/18 with septic shock, currently intubated on mechanical ventilation requiring pressor support. Patient's overall prognosis is poor.Patient significant other, Britt Mercedes, has chosen to honor the patient's wishes as declared in his living well and allow the patient to pass peacefully and naturally at this time. At this time, the healthcare surrogate's primary goal is that the patient be comfortable. * Discussed patient with bedside nurse (Sheri) and warehouse order picker, Dr. Castro. * Signed exhibits B and C have been placed on the patient's chart * Comfort medication orders have been placed in the computer. * Palliative care contact information provided to patient's significant other, Britt. * Should the patient survive the night, recommendations to consult hospice tomorrow 01/25/2018 Thank you for the opportunity to participate in the care of Mr. Cason. Attestation To help prompt me to consider important information that might be impacting today's encounter and assessment, information from prior notes written by myself or my colleagues may have been "brought forward" into today's note. My signature on this note, however, is an attestation that I personally performed the exam, history, and/or decision-making noted today, and, unless otherwise indicated, the interactions with patient, family, and staff as well as the review of records all occurred today. I also attest that the listed assessment and stated plan reflect my best clinical judgment today based on the combination of historical information, prior notes, and today's exam/ interactions. When time spent is documented, it refers only to time spent today by the signer, or if indicated, combined time spent today by collaborating physician/nurse practitioner. . Celeste Trotter Jan 24, 2018 14:59
[2018-01-24] MEDS ORDERED: LORazepam 2 MG/ML VIAL IV PUSH ONE ×2 (16:45→17:15)
[2018-01-24] MEDS ORDERED: MORPHINE SULFATE 8 MG/ML INJ IV PUSH ONE (16:45)
[2018-01-24] MEDS ORDERED: HYOSCYAMINE 0.5 MG/ML AMP IV PUSH ONE (16:45)
[2018-01-24] MEDS ORDERED: LORazepam 2 MG/ML VIAL IV PUSH PRN ×3 (17:15)
[2018-01-24] MEDS ORDERED: MORPHINE SULFATE 4 MG/ML INJ IV PUSH PRN (17:15)
[2018-01-24] MEDS ORDERED: ACETAMINOPHEN 650 MG SUPP RECTAL PRN (17:15)
[2018-01-24] MEDS ORDERED: MORPHINE SULFATE 8 MG/ML INJ IV PUSH PRN (17:15)
[2018-01-24] MEDS ORDERED: FUROSEMIDE 20 MG/2 ML VIAL IV PUSH PRN (17:15)
[2018-01-24] MEDS ORDERED: MORPHINE SULFATE 4 MG/ML INJ IV PUSH ONE (17:15)
[2018-01-24] MEDS ORDERED: BISACODYL 10 MG SUPP RECTAL PRN (17:15)
[2018-01-24] MEDS ORDERED: HYOSCYAMINE 0.5 MG/ML AMP IV PUSH PRN (17:15)
[2018-01-24] MEDS: LORazepam 2 MG/ML VIAL IV PUSH SCH ×2 (21:05→23:51)
[2018-01-24] MEDS: MORPHINE SULFATE 4 MG/ML INJ IV PUSH SCH ×2 (21:06→23:50)
[2018-01-25] VITALS: BP 64/43; PULSE 105; RESP 21; O2SAT 78
[2018-01-25 04:00] VITALS: BP 65/47; PULSE 98; RESP 22; O2SAT 79
[2018-01-25] MEDS: LORazepam 2 MG/ML VIAL IV PUSH SCH ×3 (04:41→12:25)
[2018-01-25] MEDS: MORPHINE SULFATE 4 MG/ML INJ IV PUSH SCH ×3 (04:42→12:26)
--- NOTE | 2018-01-25 07:39 | HHI.CCPN ---
Subjective Remarks/Hospital Course The patient is a 72-year-old male with a past medical history of coronary artery disease with previous [place], hypertension, diabetes mellitus, hyperlipidemia , metastatic lung cancer to the bone, who presented to [facility] ED via EMS for altered mental status. When EMS arrived, and patient had a GCS, 3 unresponsive. His initial O2 saturation in the 60s, which improved to the 90s on a nonrebreather. Upon arrival, he was tachycardic, confused and was subsequently intubated and placed on full mechanical ventilation. He had a temperature of 100.5 and his laboratory data significant for leukocytosis with a WBC of 20 associated with bandemia. Other significant labs showed acute renal failure with a BUN of 65, creatinine 3.43, and elevated lactic acid level 8.4. His urinalysis was positive for leukocyte esterase, wbc, moderate wbc clumps and occasional bacteria. The patient was given 3 L of crystalloids along with 1 amp of sodium bicarbonate, vancomycin, Flagyl and started on Levophed. When seen in the ER, the patient is sedated with Versed and fentanyl and on full mechanical ventilation. He is scheduled to undergo a CT scan of the brain without contrast and CT abdomen and pelvis. According to the significant other, he had a PET scan as an outpatient on 01/19, which showed diffuse hypermetabolic mediastinal adenopathy compatible with metastatic disease and hypermetabolic bilateral supraclavicular adenopathy and findings suggestive of bone mets. Right IJ central line and left arterial line were placed by ED. His lactic acid improved to 3.5 from 8.4 after fluid resuscitation. ABG post-intubation showed a pH of 7.06, CO2 of 47, PaO2 of 451, bicarbonate 13, saturation 98% on assist and full ventilation with a rate of 14, tidal volume 500, PEEP of 5, 100% FIO2. SUBJ 01/24: Patient remains intubated sedated currently on Levophed 5 mcg/min. Remains critically ill. Patient's living will brought in by significant other. He does not want life prolonging measures if he is in terminal condition which he is due to metastatic lung cancer 01/25: Active life support was withdrawn and comfort measures initiated yesterday evening per patient's previous wishes. Currently appears comfortable sats are low at 83% map about 50. Hospice consulted Objective Vital Signs Date Time Temp Pulse Resp B/P (MAP) Pulse Ox O2 Delivery O2 Flow Rate FiO2 01/25/18 04:00 98 22 65/47 (53) 79 01/24/18 20:00 97.7 01/24/18 17:58 Room Air 01/24/18 15:26 35 Intake and Output 01/25/18 01/25/18 01/26/18 08:00 16:00 00:00 Output Total 100 ml Balance -100 ml Result Diagram: 01/24/1841901/24/18419 Objective Remarks GENERAL: A 72-year-old male, critically ill, OR RA, sats 83% HEENT: Atraumatic, normocephalic. NECK: Supple. No JVD, HEART: Tachycardic. Normal S1, S2. No murmurs, rubs or gallops noted. MAP 52 LUNGS: Bilateral equal entry. No rales or wheezing. ABDOMEN: Soft, nontender EXTREMITIES: No cyanosis, clubbing, edema. NEUROLOGIC: Patient is well sedated and appears comfortable A/P Assessment and Plan ASSESSMENT Acute respiratory failure requiring intubation and mechanical ventilation. Altered mental status/metabolic encephalopathy. Septic shock Acute kidney injury. Anion gap metabolic acidosis. UTI with group B enterococcus Lactic acidemia. Hyperglycemia with underlying history of diabetes mellitus. Elevated AST and alkaline phosphatase. Leukocytosis with bandemia. Anemia. Metastatic lung disease. History of coronary artery disease. History of hypertension. History of diabetes mellitus and hyperlipidemia. RECOMMENDATIONS: -Active life support was withdrawn yesterday, and comfort measures initiated per patient's previous wishes. Patient is terminally ill and is expected to pass away soon. Hospice consulted. Transfer to hospice if family/HCS agreeable Level 1 Mamie Castro MD Jan 25, 2018 07:39
[2018-01-25 08:00] VITALS: BP 62/45; PULSE 92; RESP 22; TEMP 98.1; O2SAT 79
[2018-01-26] MEDS ORDERED: PHARMACY ORDERED LAB ONE (00:45)
== END 2018-01-25 13:50 | disposition hospice, inpatient (51) | DRG 871 ==
LOC: NEPC 09:52 → NEDA 12:52 → HIME 15:50
PROVIDERS: ADMIT Family Medicine Hospice and Palliative Medicine; ATTEND Family Medicine Hospice and Palliative Medicine
PROC: 0BH17EZ Insertion of Endotracheal Airway into Trachea, Via Natural or Artificial Opening (ICD-10-PCS; principal; 2018-01-23)
PROC: 03HY32Z Insertion of Monitoring Device into Upper Artery, Percutaneous Approach (ICD-10-PCS; 2018-01-23)
PROC: 5A1945Z Respiratory Ventilation, 24-96 Consecutive Hours (ICD-10-PCS; 2018-01-23)
PROC: 05HM33Z Insertion of Infusion Device into Right Internal Jugular Vein, Percutaneous Approach (ICD-10-PCS; 2018-01-23)
PROC: B543ZZA Ultrasonography of Right Jugular Veins, Guidance (ICD-10-PCS; 2018-01-23)
DX: A41.9 Sepsis, unspecified organism (principal); J96.01 Acute respiratory failure with hypoxia; R65.21 Severe sepsis with septic shock; N17.9 Acute kidney failure, unspecified; G93.41 Metabolic encephalopathy; E87.2 Acidosis; C34.90 Malignant neoplasm of unspecified part of unspecified bronchus or lung; C79.51 Secondary malignant neoplasm of bone; D64.9 Anemia, unspecified; N39.0 Urinary tract infection, site not specified; B95.2 Enterococcus as the cause of diseases classified elsewhere; E11.65 Type 2 diabetes mellitus with hyperglycemia; Z79.84 Long term (current) use of oral hypoglycemic drugs; Z79.52 Long term (current) use of systemic steroids; Z79.82 Long term (current) use of aspirin; R40.2431 Glasgow coma scale score 3-8, in the field [EMT or ambulance]; I25.2 Old myocardial infarction; I25.10 Atherosclerotic heart disease of native coronary artery without angina pectoris; Z95.5 Presence of coronary angioplasty implant and graft; H91.90 Unspecified hearing loss, unspecified ear; I10 Essential (primary) hypertension; E78.5 Hyperlipidemia, unspecified; Z66 Do not resuscitate; Z51.5 Encounter for palliative care; E87.5 Hyperkalemia; J44.9 Chronic obstructive pulmonary disease, unspecified; R33.9 Retention of urine, unspecified; R63.4 Abnormal weight loss; Z68.25 Body mass index [BMI] 25.0-25.9, adult; Z87.891 Personal history of nicotine dependence; Z88.0 Allergy status to penicillin; Z87.442 Personal history of urinary calculi
CPT/HCPCS: 31500; 36556; 36620; 43752; 51702; 70450; 71045; 71250; 74176; 80048; 80053; 80202; 80307; 81001; 82140; 82550; 82805; 82948; 83605; 84155; 84443; 84484; 85007; 85027; 85610; 85730; 87040; 87077; 87086; 87186; 87641; 93005; 94002; 94003; 94640; 94664; 96361; 96365; 96368; 96375; 96376; J0330; J0610; J1720; J1815; J1980; J2060; J2185; J2248; J2250; J2270; J2370; J3010; J3370; J7030; J7050